=== PATIENT | female | born 1950 | race Caucasian/White ===

== ENCOUNTER → 2019-12-29 14:14 | Outpatient (BNVA) | payer MEDICARE, OTHER, SELFPAY | PROVIDERS: Family Provider Family Medicine; PCP Family Medicine; Visit Provider Family Medicine | DX: E11.8 Type 2 diabetes mellitus with unspecified complications (principal) | CPT/HCPCS: 80053; 80061; 83036; 85025 ==

== ENCOUNTER 2020-03-06 16:06 | Inpatient (IN) | payer MEDICARE, OTHER, SELFPAY ==
[2020-03-06 16:29] VITALS: BP 196/98; PULSE 70; RESP 16; TEMP 36.4; O2SAT 97; BMI 37.1
--- NOTE | 2020-03-06 16:35 | XR_ITS ---
WS: [id number] CHEST XRAY TECHNIQUE: Portable chest. CLINICAL INFORMATION: weakness COMPARISON: None. FINDINGS: Heart: Normal cardiac silhouette. Lungs: Lungs are clear. No consolidation or pleural effusion. Bones: Normal visualized bony structures. XR/XR chest 1V portable [id number] IMPRESSION: Normal chest
--- NOTE | 2020-03-06 16:38 | ED_ITS ---
Documented by User: Avi Horn DO 03/06/20 17:20 HPI - Nausea/Vomiting/Diarrhea General: Chief complaint: General Medical Stated complaint: SICK / HIGH BLOOD GLUCOSE Time Seen by Provider: 03/06/20 16:20 History of Present Illness: HPI Narrative: Patient presents to emergency room with 2 day history of severe nausea with multiple episodes of vomiting. Patient has had a subjective temperature. She denies diarrhea. She has no cough or urinary tract infection symptoms. MD elicited complaint: nausea and vomiting Onset (ago): day(s) Associated nausea: Yes Associated abdominal pain: Yes Location of pain: Diffuse Radiation: diffuse Pain consistency: constant Severity: moderate Quality: cramping Exacerbating factors: eating and movement Relieving factors: none Associated symtoms: Reports fatigue, malaise, myalgias and nausea Review of Systems General: Reports: 10 or more systems reviewed and unremarkable except in HPI and below Const: Reports: fatigue and malaise GI: Reports: nausea PFSH ED PFSH: Medical History CHF (congestive heart failure) CKD (chronic kidney disease) Depression Diabetes Hyperlipidemia Hypertension Sleep apnea Social History Smoking and tobacco status: never smoked Alcohol intake: never Marital status: Physical Exam Const: COMMON NORMALS: patient oriented x3 and alert GENERAL APPEARANCE: disheveled and ill appearing HENMT: COMMON NORMALS: normocephalic, atraumatic, external ears normal and Normal external nose present HEAD & SCALP: normocephalic and atraumatic FACE & SINUS: normal facial exam NOSE: Normal external nose present EXTERNAL EAR: Yes external ears normal MOUTH: Normal oral and palatal mucosa present Neck/C-Spine: COMMON NORMALS: full ROM, no lymphadenopathy, supple, no meningeal signs and no JVD GENERAL: Yes normal visual inspection Resp: COMMON NORMALS: normal respiratory effort, No retractions, No use of accessory muscles and clear to auscultation bilaterally AUSCULTATION: clear to auscultation bilaterally Cardio: COMMON NORMALS: no JVD, regular rate and regular rhythm RATE: regular rate RHYTHM: regular rhythm GI: COMMON NORMALS: Normal to inspection, nondistended, normoactive bowel sounds present, Soft to palpation, non-tender, No hepatosplenomegaly present and no masses INSPECTION: Yes normal to inspection AUSCULTATION: Yes normo active bowel sounds PALPATION: Yes Soft to palpation and Yes No hepatosplenomegaly present PERCUSSION: normal to percussion : COMMON NORMALS: Yes no CVA tenderness and Yes normal external appearance BLADDER/KIDNEY EXAM: Yes no CVA tenderness Back/Pelvis: COMMON NORMALS: no CVA tenderness, thoracic and lumbar spine normal to inspection, no thoracic nor lumbar tenderness, thoraco-lumbar ROM normal and straight leg raise negative bilaterally Extremity: COMMON NORMALS: normal to inspection, full ROM, capillary refill normal, no joint enlargement, no clubbing, cyanosis or edema, no calf tenderness and no pedal edema Neuro: COMMON NORMALS: patient oriented x3, moves all extremities, no focal motor deficits and no sensory deficits noted SENSORIUM/ORIENTATION: Yes alert MENINGEAL SIGNS: Yes no meningeal signs Psych: COMMON NORMALS: mental status grossly normal, Normal thought process present, cooperative, normal affect and speech normal SPEECH: Yes normal speech THOUGHT PROCESS: Normal thought process present Skin: COMMON NORMALS: no rashes or lesions noted, no wounds, turgor normal, no jaundice, no petechiae and no mottling GENERAL SKIN EXAM: no rashes or lesions noted and turgor normal Course Vital Signs: Vital signs: Vital Signs Temperature 98.9 F 03/07/20 01:04 Pulse Rate 104 H 03/07/20 01:04 Respiratory Rate 20 H 03/07/20 01:04 Blood Pressure 181/99 03/07/20 01:19 Pulse Oximetry 96 03/07/20 01:04 MDM - Nausea/Vomiting/Diarrhea Lab Data: Labs: Lab Results 03/06/20 03/06/20 03/06/20 Range/Units 16:57 16:57 16:57 WBC 6.3 (4.0-10.0) 10^3/ uL RBC 3.55 L (4.1-5.3) 10^6/u L Hgb 9.8 L (11.5-15.3) g/dL Hct 31.8 L (37.0-47.0) % MCV 89.6 (81-99) fL MCH 27.6 L (28.0-34.0) pg MCHC 30.8 (30.0-36.0) g/dL RDW 14.6 (12.1-15.1) % Plt Count 188 (130-400) 10^3/c mm MPV 11.0 H (7.4-10.4) fL Neut % (Auto) 76.3 % Lymph % (Auto) 14.0 % Chase % (Auto) 6.8 % Eos % (Auto) 0.0 % Baso % (Auto) 0.2 % Neut # (Auto) 4.79 (1.8-7.7) 10^3/u L Lymph # (Auto) 0.9 (0.8-4.8) 10^3/u L Chase # (Auto) 0.4 (0.2-0.9) 10^3/u L Eos # (Auto) 0.0 (0.0-0.8) 10^3/u L Baso # (Auto) 0.0 (0.0-0.1) 10^3/u L Nucleated RBC % (a uto) 0.3 % Nucleated RBCs # 0.0 /100WBC Specimen Type Sample Site ABG pH (7.35-7.45) ABG pCO2 (35-45) mmHg ABG pO2 (80.0-100.0) mmH g ABG HCO3 (22-26) mmol/L ABG Base Excess (-2.0-2.0) mmol/ L Deni Test Hematocrit (37-47) % O2 Delivery Device FiO2 % Dry Cans Back Tender ID Sodium 139 (136-145) mmol/L Potassium 3.4 L (3.5-5.1) mmol/L Chloride 106 (98-107) mmol/L Carbon Dioxide 20 L (22-29) mmol/L Anion Gap 16.4 (5-19) BUN 48 H (8-23) mg/dL Creatinine 3.4 H (0.5-0.9) mg/dL Glucose 385 H (65-115) mg/dL Calculated Osmolal ity 302 H (285-295) mOsm/k g Lactate 1.5 (0.5-2.2) mmol/L Calcium 8.6 (8.5-10.5) mg/dL Total Bilirubin 0.4 (0.15-1.2) mg/dL AST 16 (0-32) U/L ALT 13 (0-33) U/L Alkaline Phosphata se 41 (35-105) IU/L Troponin T Baselin e (0-10) ng/L NT-Pro-B Natriuret Pep 6394 H (0-125) pg/mL Total Protein 5.5 L (6.6-8.7) g/dL Albumin 2.6 L (3.5-5.2) g/dL Globulin 2.9 (1.3-4.6) g/dL Lipase 49 (13-60) U/L TSH 2.83 (0.27-4.20) uIU/ mL Urine Color (Yellow) Urine Appearance (CLEAR) Urine pH (5-7) Ur Specific Gravit y (1.005-1.030) Urine Protein (Negative) Urine Glucose (UA) (Normal) Urine Ketones (Negative) Urine Blood (Negative) Urine Nitrate (Negative) Urine Bilirubin (NEGATIVE) Urine Urobilinogen (Negative) mg/dL Ur Leukocyte Oralia ase (Negative) Urine RBC (0-2) /hpf Urine WBC (0-5) /hpf Ur Squamous Epith Cells (0-5) Amorphous Sediment Urine Bacteria (NONE) Serum Ketones (Negative) 03/06/20 03/06/20 03/06/20 Range/Units 16:57 17:17 18:28 WBC (4.0-10.0) 10^3/ uL RBC (4.1-5.3) 10^6/u L Hgb (11.5-15.3) g/dL Hct (37.0-47.0) % MCV (81-99) fL MCH (28.0-34.0) pg MCHC (30.0-36.0) g/dL RDW (12.1-15.1) % Plt Count (130-400) 10^3/c mm MPV (7.4-10.4) fL Neut % (Auto) % Lymph % (Auto) % Chase % (Auto) % Eos % (Auto) % Baso % (Auto) % Neut # (Auto) (1.8-7.7) 10^3/u L Lymph # (Auto) (0.8-4.8) 10^3/u L Chase # (Auto) (0.2-0.9) 10^3/u L Eos # (Auto) (0.0-0.8) 10^3/u L Baso # (Auto) (0.0-0.1) 10^3/u L Nucleated RBC % (a uto) % Nucleated RBCs # /100WBC Specimen Type Arterial Sample Site Radial, right ABG pH 7.52 H (7.35-7.45) ABG pCO2 26.4 L (35-45) mmHg ABG pO2 102.0 H (80.0-100.0) mmH g ABG HCO3 21.6 L (22-26) mmol/L ABG Base Excess -0.5 (-2.0-2.0) mmol/ L Deni Test Pos Hematocrit 31.2 L (37-47) % O2 Delivery Device Room air FiO2 21.0 % Dry Cans Back Tender ID amh Sodium (136-145) mmol/L Potassium (3.5-5.1) mmol/L Chloride (98-107) mmol/L Carbon Dioxide (22-29) mmol/L Anion Gap (5-19) BUN (8-23) mg/dL Creatinine (0.5-0.9) mg/dL Glucose (65-115) mg/dL Calculated Osmolal ity (285-295) mOsm/k g Lactate (0.5-2.2) mmol/L Calcium (8.5-10.5) mg/dL Total Bilirubin (0.15-1.2) mg/dL AST (0-32) U/L ALT (0-33) U/L Alkaline Phosphata se (35-105) IU/L Troponin T Baselin e (0-10) ng/L NT-Pro-B Natriuret Pep (0-125) pg/mL Total Protein (6.6-8.7) g/dL Albumin (3.5-5.2) g/dL Globulin (1.3-4.6) g/dL Lipase (13-60) U/L TSH (0.27-4.20) uIU/ mL Urine Color Yellow (Yellow) Urine Appearance Hazy A (CLEAR) Urine pH 6.5 (5-7) Ur Specific Gravit y 1.005 (1.005-1.030) Urine Protein 3+ H (Negative) Urine Glucose (UA) 4+ H (Normal) Urine Ketones 1+ H (Negative) Urine Blood 3+ H (Negative) Urine Nitrate Negative (Negative) Urine Bilirubin Neg (NEGATIVE) Urine Urobilinogen Norm (Negative) mg/dL Ur Leukocyte Oralia ase Negative (Negative) Urine RBC 0-4 H (0-2) /hpf Urine WBC 0-4 H (0-5) /hpf Ur Squamous Epith Cells Rare (0-5) Amorphous Sediment 2+ Urine Bacteria 2+ H (NONE) Serum Ketones Negative (Negative) 03/06/20 Range/Units 22:31 WBC (4.0-10.0) 10^3/ uL RBC (4.1-5.3) 10^6/u L Hgb (11.5-15.3) g/dL Hct (37.0-47.0) % MCV (81-99) fL MCH (28.0-34.0) pg MCHC (30.0-36.0) g/dL RDW (12.1-15.1) % Plt Count (130-400) 10^3/c mm MPV (7.4-10.4) fL Neut % (Auto) % Lymph % (Auto) % Chase % (Auto) % Eos % (Auto) % Baso % (Auto) % Neut # (Auto) (1.8-7.7) 10^3/u L Lymph # (Auto) (0.8-4.8) 10^3/u L Chase # (Auto) (0.2-0.9) 10^3/u L Eos # (Auto) (0.0-0.8) 10^3/u L Baso # (Auto) (0.0-0.1) 10^3/u L Nucleated RBC % (a uto) % Nucleated RBCs # /100WBC Specimen Type Sample Site ABG pH (7.35-7.45) ABG pCO2 (35-45) mmHg ABG pO2 (80.0-100.0) mmH g ABG HCO3 (22-26) mmol/L ABG Base Excess (-2.0-2.0) mmol/ L Deni Test Hematocrit (37-47) % O2 Delivery Device FiO2 % Dry Cans Back Tender ID Sodium (136-145) mmol/L Potassium (3.5-5.1) mmol/L Chloride (98-107) mmol/L Carbon Dioxide (22-29) mmol/L Anion Gap (5-19) BUN (8-23) mg/dL Creatinine (0.5-0.9) mg/dL Glucose (65-115) mg/dL Calculated Osmolal ity (285-295) mOsm/k g Lactate (0.5-2.2) mmol/L Calcium (8.5-10.5) mg/dL Total Bilirubin (0.15-1.2) mg/dL AST (0-32) U/L ALT (0-33) U/L Alkaline Phosphata se (35-105) IU/L Troponin T Baselin e 104 H* (0-10) ng/L NT-Pro-B Natriuret Pep (0-125) pg/mL Total Protein (6.6-8.7) g/dL Albumin (3.5-5.2) g/dL Globulin (1.3-4.6) g/dL Lipase (13-60) U/L TSH (0.27-4.20) uIU/ mL Urine Color (Yellow) Urine Appearance (CLEAR) Urine pH (5-7) Ur Specific Gravit y (1.005-1.030) Urine Protein (Negative) Urine Glucose (UA) (Normal) Urine Ketones (Negative) Urine Blood (Negative) Urine Nitrate (Negative) Urine Bilirubin (NEGATIVE) Urine Urobilinogen (Negative) mg/dL Ur Leukocyte Oralia ase (Negative) Urine RBC (0-2) /hpf Urine WBC (0-5) /hpf Ur Squamous Epith Cells (0-5) Amorphous Sediment Urine Bacteria (NONE) Serum Ketones (Negative) Discharge Plan Discharge Patient Disposition: Placed in Observation Admit Provider: Nory Pfeiffer Clinical Impression: Hypertensive urgency, Acute hyperglycemia Condition: Stable Discharge Date/Time: 03/07/20 00:58 Coding Level of Care Code ED Client Care Representative for Chg Fwd Exam Comprehensive Documented by User: Davey Munoz DO 03/07/20 02:17 HPI - Nausea/Vomiting/Diarrhea General: Chief complaint: General Medical Stated complaint: SICK / HIGH BLOOD GLUCOSE Time Seen by Provider: 03/06/20 16:20 [facility] ED PFSH: Medical History CHF (congestive heart failure) CKD (chronic kidney disease) Depression Diabetes Hyperlipidemia Hypertension Sleep apnea Social History Smoking and tobacco status: never smoked Alcohol intake: never Marital status: Course Vital Signs: Vital signs: Vital Signs Temperature 98.9 F 03/07/20 01:04 Pulse Rate 104 H 03/07/20 01:04 Respiratory Rate 20 H 03/07/20 01:04 Blood Pressure 181/99 03/07/20 01:19 Pulse Oximetry 96 03/07/20 01:04 MDM - Nausea/Vomiting/Diarrhea MDM Narrative: Medical decision making narrative: 69-year-old female checked out to me at shift change by Dr. De Oliveira. This lady had vomited a couple of days ago, thought it was her medicine making her sick, and stopped all of her medication. She presents significantly hyperglycemic, mildly acidotic metabolically, and without ketones in her serum. Her blood gas reveals respiratory alkalosis actually. Her hemoglobin is 9.8. Her BUN is 48, creatinine 3.4 which is a increase from her last one in December. She has been hydrated she is extremely hypertensive with blood pressures in the 215 range systolic. This is been controlled in the ER with labetalol and a dose of amlodipine which she usually takes at home. She will be observed for control of her blood sugar, blood pressure, and symptomatic treatment. Lab Data: Labs: Lab Results 03/06/20 03/06/20 03/06/20 Range/Units 16:57 16:57 16:57 WBC 6.3 (4.0-10.0) 10^3/ uL RBC 3.55 L (4.1-5.3) 10^6/u L Hgb 9.8 L (11.5-15.3) g/dL Hct 31.8 L (37.0-47.0) % MCV 89.6 (81-99) fL MCH 27.6 L (28.0-34.0) pg MCHC 30.8 (30.0-36.0) g/dL RDW 14.6 (12.1-15.1) % Plt Count 188 (130-400) 10^3/c mm MPV 11.0 H (7.4-10.4) fL Neut % (Auto) 76.3 % Lymph % (Auto) 14.0 % Chase % (Auto) 6.8 % Eos % (Auto) 0.0 % Baso % (Auto) 0.2 % Neut # (Auto) 4.79 (1.8-7.7) 10^3/u L Lymph # (Auto) 0.9 (0.8-4.8) 10^3/u L Chase # (Auto) 0.4 (0.2-0.9) 10^3/u L Eos # (Auto) 0.0 (0.0-0.8) 10^3/u L Baso # (Auto) 0.0 (0.0-0.1) 10^3/u L Nucleated RBC % (a uto) 0.3 % Nucleated RBCs # 0.0 /100WBC Specimen Type Sample Site ABG pH (7.35-7.45) ABG pCO2 (35-45) mmHg ABG pO2 (80.0-100.0) mmH g ABG HCO3 (22-26) mmol/L ABG Base Excess (-2.0-2.0) mmol/ L Deni Test Hematocrit (37-47) % O2 Delivery Device FiO2 % Dry Cans Back Tender ID Sodium 139 (136-145) mmol/L Potassium 3.4 L (3.5-5.1) mmol/L Chloride 106 (98-107) mmol/L Carbon Dioxide 20 L (22-29) mmol/L Anion Gap 16.4 (5-19) BUN 48 H (8-23) mg/dL Creatinine 3.4 H (0.5-0.9) mg/dL Glucose 385 H (65-115) mg/dL Calculated Osmolal ity 302 H (285-295) mOsm/k g Lactate 1.5 (0.5-2.2) mmol/L Calcium 8.6 (8.5-10.5) mg/dL Total Bilirubin 0.4 (0.15-1.2) mg/dL AST 16 (0-32) U/L ALT 13 (0-33) U/L Alkaline Phosphata se 41 (35-105) IU/L Troponin T Baselin e (0-10) ng/L NT-Pro-B Natriuret Pep 6394 H (0-125) pg/mL Total Protein 5.5 L (6.6-8.7) g/dL Albumin 2.6 L (3.5-5.2) g/dL Globulin 2.9 (1.3-4.6) g/dL Lipase 49 (13-60) U/L TSH 2.83 (0.27-4.20) uIU/ mL Urine Color (Yellow) Urine Appearance (CLEAR) Urine pH (5-7) Ur Specific Gravit y (1.005-1.030) Urine Protein (Negative) Urine Glucose (UA) (Normal) Urine Ketones (Negative) Urine Blood (Negative) Urine Nitrate (Negative) Urine Bilirubin (NEGATIVE) Urine Urobilinogen (Negative) mg/dL Ur Leukocyte Oralia ase (Negative) Urine RBC (0-2) /hpf Urine WBC (0-5) /hpf Ur Squamous Epith Cells (0-5) Amorphous Sediment Urine Bacteria (NONE) Serum Ketones (Negative) 03/06/20 03/06/20 03/06/20 Range/Units 16:57 17:17 18:28 WBC (4.0-10.0) 10^3/ uL RBC (4.1-5.3) 10^6/u L Hgb (11.5-15.3) g/dL Hct (37.0-47.0) % MCV (81-99) fL MCH (28.0-34.0) pg MCHC (30.0-36.0) g/dL RDW (12.1-15.1) % Plt Count (130-400) 10^3/c mm MPV (7.4-10.4) fL Neut % (Auto) % Lymph % (Auto) % Chase % (Auto) % Eos % (Auto) % Baso % (Auto) % Neut # (Auto) (1.8-7.7) 10^3/u L Lymph # (Auto) (0.8-4.8) 10^3/u L Chase # (Auto) (0.2-0.9) 10^3/u L Eos # (Auto) (0.0-0.8) 10^3/u L Baso # (Auto) (0.0-0.1) 10^3/u L Nucleated RBC % (a uto) % Nucleated RBCs # /100WBC Specimen Type Arterial Sample Site Radial, right ABG pH 7.52 H (7.35-7.45) ABG pCO2 26.4 L (35-45) mmHg ABG pO2 102.0 H (80.0-100.0) mmH g ABG HCO3 21.6 L (22-26) mmol/L ABG Base Excess -0.5 (-2.0-2.0) mmol/ L Deni Test Pos Hematocrit 31.2 L (37-47) % O2 Delivery Device Room air FiO2 21.0 % Dry Cans Back Tender ID amh Sodium (136-145) mmol/L Potassium (3.5-5.1) mmol/L Chloride (98-107) mmol/L Carbon Dioxide (22-29) mmol/L Anion Gap (5-19) BUN (8-23) mg/dL Creatinine (0.5-0.9) mg/dL Glucose (65-115) mg/dL Calculated Osmolal ity (285-295) mOsm/k g Lactate (0.5-2.2) mmol/L Calcium (8.5-10.5) mg/dL Total Bilirubin (0.15-1.2) mg/dL AST (0-32) U/L ALT (0-33) U/L Alkaline Phosphata se (35-105) IU/L Troponin T Baselin e (0-10) ng/L NT-Pro-B Natriuret Pep (0-125) pg/mL Total Protein (6.6-8.7) g/dL Albumin (3.5-5.2) g/dL Globulin (1.3-4.6) g/dL Lipase (13-60) U/L TSH (0.27-4.20) uIU/ mL Urine Color Yellow (Yellow) Urine Appearance Hazy A (CLEAR) Urine pH 6.5 (5-7) Ur Specific Gravit y 1.005 (1.005-1.030) Urine Protein 3+ H (Negative) Urine Glucose (UA) 4+ H (Normal) Urine Ketones 1+ H (Negative) Urine Blood 3+ H (Negative) Urine Nitrate Negative (Negative) Urine Bilirubin Neg (NEGATIVE) Urine Urobilinogen Norm (Negative) mg/dL Ur Leukocyte Oralia ase Negative (Negative) Urine RBC 0-4 H (0-2) /hpf Urine WBC 0-4 H (0-5) /hpf Ur Squamous Epith Cells Rare (0-5) Amorphous Sediment 2+ Urine Bacteria 2+ H (NONE) Serum Ketones Negative (Negative) 03/06/20 Range/Units 22:31 WBC (4.0-10.0) 10^3/ uL RBC (4.1-5.3) 10^6/u L Hgb (11.5-15.3) g/dL Hct (37.0-47.0) % MCV (81-99) fL MCH (28.0-34.0) pg MCHC (30.0-36.0) g/dL RDW (12.1-15.1) % Plt Count (130-400) 10^3/c mm MPV (7.4-10.4) fL Neut % (Auto) % Lymph % (Auto) % Chase % (Auto) % Eos % (Auto) % Baso % (Auto) % Neut # (Auto) (1.8-7.7) 10^3/u L Lymph # (Auto) (0.8-4.8) 10^3/u L Chase # (Auto) (0.2-0.9) 10^3/u L Eos # (Auto) (0.0-0.8) 10^3/u L Baso # (Auto) (0.0-0.1) 10^3/u L Nucleated RBC % (a uto) % Nucleated RBCs # /100WBC Specimen Type Sample Site ABG pH (7.35-7.45) ABG pCO2 (35-45) mmHg ABG pO2 (80.0-100.0) mmH g ABG HCO3 (22-26) mmol/L ABG Base Excess (-2.0-2.0) mmol/ L Deni Test Hematocrit (37-47) % O2 Delivery Device FiO2 % Dry Cans Back Tender ID Sodium (136-145) mmol/L Potassium (3.5-5.1) mmol/L Chloride (98-107) mmol/L Carbon Dioxide (22-29) mmol/L Anion Gap (5-19) BUN (8-23) mg/dL Creatinine (0.5-0.9) mg/dL Glucose (65-115) mg/dL Calculated Osmolal ity (285-295) mOsm/k g Lactate (0.5-2.2) mmol/L Calcium (8.5-10.5) mg/dL Total Bilirubin (0.15-1.2) mg/dL AST (0-32) U/L ALT (0-33) U/L Alkaline Phosphata se (35-105) IU/L Troponin T Baselin e 104 H* (0-10) ng/L NT-Pro-B Natriuret Pep (0-125) pg/mL Total Protein (6.6-8.7) g/dL Albumin (3.5-5.2) g/dL Globulin (1.3-4.6) g/dL Lipase (13-60) U/L TSH (0.27-4.20) uIU/ mL Urine Color (Yellow) Urine Appearance (CLEAR) Urine pH (5-7) Ur Specific Gravit y (1.005-1.030) Urine Protein (Negative) Urine Glucose (UA) (Normal) Urine Ketones (Negative) Urine Blood (Negative) Urine Nitrate (Negative) Urine Bilirubin (NEGATIVE) Urine Urobilinogen (Negative) mg/dL Ur Leukocyte Oralia ase (Negative) Urine RBC (0-2) /hpf Urine WBC (0-5) /hpf Ur Squamous Epith Cells (0-5) Amorphous Sediment Urine Bacteria (NONE) Serum Ketones (Negative) Discharge Plan Discharge Patient Disposition: Placed in Observation Admit Provider: Nory Pfeiffer Clinical Impression: Hypertensive urgency, Acute hyperglycemia Condition: Stable Discharge Date/Time: 03/07/20 00:58 Coding Level of Care Code ED Client Care Representative for Chg Fwd Exam Comprehensive
[2020-03-06] MEDS: sodium chloride 0.9% 1,000 ML 999 ML IV (17:00)
[2020-03-06] MEDS: ondansetron 2 mg/ML SDV 2 mL 4 MG IVP ×2 (17:00→20:13)
[2020-03-06 17:05] LABS: Basophils % 0.2 %; Hematocrit 31.8 % (37.0-47.0); Hemoglobin 9.8 g/dL (11.5-15.3); Lymphocytes # 0.9 10^3/uL (0.8-4.8); Mean Corpuscular HGB Conc 30.8 g/dL (30.0-36.0); Mean Corpuscular Hemoglobin 27.6 pg (28.0-34.0); Mean Corpuscular Volume 89.6 fL (81-99); Monocytes # 0.4 10^3/uL (0.2-0.9); Monocytes % 6.8 %; Neutrophils # 4.79 10^3/uL (1.8-7.7); Neutrophils % 76.3 %; Nucleated Red Blood Cells % 0.3 %; Platelet Count 188 10^3/cmm (130-400); Red Blood Count 3.55 10^6/uL (4.1-5.3); Red Cell Distribution Width 14.6 % (12.1-15.1); White Blood Count 6.3 10^3/uL (4.0-10.0)
[2020-03-06 17:21] LABS: Ketone (Acetest) Serum Negative (Negative)
[2020-03-06 17:29] LABS: ABG PCO2 26.4 mmHg (35-45); ABG PH Result 7.52 (7.35-7.45); Arterial Blood Gas Hematocrit 31.2 % (37-47); Base Excess ABG -0.5 mmol/L (-2.0-2.0); Blood Gas Allen Test Pos; Blood Gas Operator Identificat amh; Blood Gas Sample Site Radial, right; Blood Gas Sample Type Arterial; HCO3 ABG 21.6 mmol/L (22-26); Oxygen Device ROOM AIR
[2020-03-06 17:36] LABS: Lactate (Lactic Acid level) 1.5 mmol/L (0.5-2.2)
[2020-03-06 17:42] LABS: Alanine Aminotransferase 13 U/L (0-33); Albumin Level 2.6 g/dL (3.5-5.2); Alkaline Phosphatase 41 IU/L (35-105); Anion Gap 16.4 (5-19); Aspartate Amino Transferase 16 U/L (0-32); Blood Urea Nitrogen 48 mg/dL (8-23); Calcium 8.6 mg/dL (8.5-10.5); Carbon Dioxide 20 mmol/L (22-29); Chloride 106 mmol/L (98-107); Globulin 2.9 g/dL (1.3-4.6); Glucose 385 mg/dL (65-115); Lipase 49 U/L (13-60); NT Pro B Type Natriuretic Pept 6394 pg/mL (0-125); Osmolality Calculated 302 mOsm/kg (285-295); Potassium 3.4 mmol/L (3.5-5.1); Sodium 139 mmol/L (136-145); Thyroid Stimulating Hormone 2.83 uIU/mL (0.27-4.20); Total Bilirubin 0.4 mg/dL (0.15-1.2); Total Protein 5.5 g/dL (6.6-8.7)
--- NOTE | 2020-03-06 18:18 | CTR_ITS ---
PROCEDURE INFORMATION: Exam: CT Head Without Contrast Exam date and time: 03/06/2020 7:08 PM Age: 69 years old Clinical indication: Other: Confused; Additional info: AMS TECHNIQUE: Imaging protocol: Computed tomography of the head without contrast. Radiation optimization: All CT scans at this facility use at least one of these dose optimization techniques: automated exposure control; mA and/or kV adjustment per patient size (includes targeted exams where dose is matched to clinical indication); or iterative reconstruction. COMPARISON: No relevant prior studies available. RADIATION DOSE METRICS: Total DLP (mGy-cm): 778.14 FINDINGS: Brain: Unremarkable. No visible hemorrhage. Unremarkable white matter for age. No mass effect. Ventricles: Normal. No ventriculomegaly. Bones/joints: Unremarkable. No acute fracture. Sinuses: Visualized sinuses are unremarkable. No fluid levels. Mastoid air cells: Visualized mastoid air cells are well aerated. Soft tissues: Unremarkable. CT/CT head wo con* [id number] IMPRESSION: No acute intracranial abnormality. Radiation Dose CTDIVOL = (mGy): DLP = 778.14 (mGy-cm)
[2020-03-06 18:49] LABS: Urine Appearance Hazy (CLEAR); Urine Color Yellow (Yellow); pH Urine 6.5 (5-7)
[2020-03-06 18:50] LABS: Add Urine Microscopic? YES; Bilirubin Urine Neg (NEGATIVE); Blood Urine 3+ (Negative); Glucose Urine UA 4+ (Normal); Ketones Urine 1+ (Negative); Leukocyte Esterase Urine Negative (Negative); Nitrate Urine Negative (Negative); Protein Urine 3+ (Negative); Specific Gravity, Urine 1.005 (1.005-1.030); Urobilinogen Urine Norm (Negative)
[2020-03-06 18:56] LABS: RBC Urine 0-4 /hpf (0-2); Squamous Epithelial Cell Urine RARE (0-5); WBC Urine 0-4 /hpf (0-5)
[2020-03-06 18:58] LABS: Add Urine Culture? Yes; Amorphous Sediment Urine 2+; Bacteria Urine 2+
[2020-03-06] MEDS: amlodipine 10 mg Tablet PO (20:13)
[2020-03-06] MEDS: labetalol 5 mg/mL SDV 20mL 20 MG IVP ×2 (20:13→21:43)
--- NOTE | 2020-03-06 22:03 | ECG_ITS ---
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 Measurements Intervals [place] Rate: 91 P: 55 OR: 198 QRS: 11 QRSD: 86 T: 33 QT: 377 QTc: 465 Interpretive Statements SINUS RHYTHM INFERIOR MYOCARDIAL INFARCTION , PROBABLY OLD [40+ ms Q WAVE AND/OR ST/T ABNORMALITY IN II/aVF] No previous ECG available for comparison Electronically Signed On 03-07-2020 16:39:16 CDT by Mathieu Pereira M.D. [id number]
--- NOTE | 2020-03-06 22:55 | PM.HP ---
Providers/Chief Complaint Admitting Physician: Nory Pfeiffer Primary Care Provider: Mana Barragan MD Chief Complaint: SICK / HIGH BLOOD GLUCOSE History of Present Illness Hailey Vasquez is a 69 year old female who presented to the emergency room complaining of being sick . She started having nausea and vomiting on Saturday. Reports 3-4 episodes of vomiting a day. Generally what ever she has tried to take N. She is lost her appetite and quit trying to take anything in but has continued to have episodes of vomiting, bilious or clear. Has had some dry heaves. With the vomiting episode she reports abdominal pain rated at its worst up to a 10 out of 10. Pain is relieved with some with vomiting. She does report some constipation intermittently. Last bowel movement was a couple of days ago. She is passing gas. Denies any diarrhea. Has not had any abdominal distention. Her had wanted her to come in for evaluation but she refused initially. He found her sitting on the toilet to get up because she was so weak and she finally agreed to come in. Only recent change in medications reported was blood pressure medicine was a decrease in the amount of Norvasc that she is taking. After her vomiting started she quit taking all of her medicines. She denies having had similar symptoms in the past. Denies any painful urination or urinary frequency. Barreto catheter was placed in the emergency room and she reports it is uncomfortable. She has not had any fever. Denies any known sick contacts in particular denies any known contacts with COVID. Has not had sore throat or physical difficulty swallowing. Has not had any headaches. Reports the weakness but denies aches and pains. Work-up in the emergency room showed hyperglycemia, hypertension, acute renal failure on chronic kidney disease, normal lactic acid. Lipase was normal. Cardiac enzymes were not done nor was an EKG though these have been ordered. Patient denies any episodes of chest pain, shortness of breath, dyspnea on exertion or lower extremity edema. She has a history of hypertension, hyperlipidemia and diabetes but denies any known history of coronary artery disease. She has been told that she has CHF. Last echocardiogram was done in May or June of last year and showed normal systolic function with an estimated ejection fraction at 65%. She received several doses of Zofran, IV fluids and some labetalol in the emergency room. She is being admitted for further evaluation and treatment. Review of Systems Const: Reports: change in appetite; Denies: fever(s) or chills Eyes: Denies: change in vision ENMT: Reports: dry mouth; Denies: throat pain or nasal congestion Card: Denies: chest pain, palpitations, edema, dyspnea on exertion or orthopnea Resp: Denies: dyspnea, productive cough, non-productive cough or pain on inspiration GI: Reports: abdominal pain, nausea, vomiting, early satiety, constipation, bloating and belching; Denies: hematemesis, diarrhea, hematochezia or melena : Denies: difficulty voiding or urinary frequency Musc: Reports: muscle weakness; Denies: back pain or extremity pain Skin/Breast: Denies: rash or pruritus Neuro: Reports: weakness in extremities; Denies: headache(s), numbness in extremities, difficulty walking, dizziness, vertigo or involuntary movements Psych: Denies: anxiety or depression King/Lymph: Denies: easy bruising or easy bleeding Medications/Allergies Home Medications Medication Instructions Recorded Confirmed Last Taken Type venlafaxine 150 mg 150 mg PO QDAY #90 cap 09/24/19 03/06/20 03/04/20 Rx capsule,extended release 24 hr amlodipine 10 mg tablet 5 mg PO DAILY 12/31/19 03/06/20 03/04/20 History furosemide 40 mg tablet 40 mg PO DAILY #90 tab 12/31/19 03/06/20 03/04/20 Rx hydrochlorothiazide 25 mg tablet 25 mg PO DAILY 12/31/19 03/06/20 03/04/20 History lisinopril 40 mg tablet 40 mg PO BID tab 12/31/19 03/06/20 03/04/20 History metaxalone 800 mg tablet 800 mg PO TID #30 tab 12/31/19 03/06/20 03/04/20 Rx rosuvastatin 40 mg tablet 40 mg PO BEDTIME 12/31/19 03/06/20 03/04/20 History canagliflozin [Invokana] 300 mg PO DAILY 03/06/20 03/06/20 03/04/20 History cholecalciferol (vitamin D3) 25 mcg PO DAILY 03/06/20 03/06/20 03/04/20 History [Vitamin D3] clonidine HCl 0.1 mg PO BID 03/06/20 03/06/20 03/04/20 History insulin glargine U-300 conc 80 unit SUBCUT DAILY 03/06/20 03/06/20 03/04/20 History [Cecilia BernabeoStar U-300 Insulin] insulin regular human [Novolin R 60 sliding scale dose SUBCUT DAILY 03/06/20 03/06/20 03/04/20 History Regular U-100 Insuln] iron 325 mg PO DAILY 03/06/20 03/06/20 03/04/20 History metoprolol succinate 100 mg PO DAILY 03/06/20 03/06/20 03/04/20 History potassium chloride 20 meq PO BID 03/06/20 03/06/20 03/04/20 History Allergies Allergy/AdvReac Type Severity Reaction Status Date / Time nifedipine [From Procardia] Allergy Unknown Verified 03/06/20 17:22 propoxyphene Allergy Unknown Verified 03/06/20 17:22 [From Darvocet-N] codeine AdvReac Unknown Verified 03/07/20 01:39 metformin AdvReac ADR-Nausea Verified 03/07/20 01:39 PFSH Acute PFSH: Medical History (Updated 03/07/20 @ 06:51 by Nory Pfeiffer MD) CHF (congestive heart failure) CKD (chronic kidney disease) Depression Diabetes Hyperlipidemia Hypertension Kidney malignancy froze off 5 yrs ago Macular degeneration getting shots in eye Sleep apnea no cpap due to intolerance Surgical History (Updated 03/07/20 @ 05:01 by Nory Pfeiffer MD) History of back surgery History of eye surgery History of hysterectomy Family History (Updated 03/07/20 @ 05:04 by Nory Pfeiffer MD) Mother Diabetes Chronic kidney disease (CKD) Other Cancer Denies family history of CAD (coronary artery disease) Social History Smoking and tobacco status: never smoked Alcohol intake: never Marital status: Vitals/I&O/Wt Last Vital Signs Temp 97.6 F 03/06/20 16:29 Pulse 70 03/06/20 16:29 Resp 16 03/06/20 16:29 BP 196/98 03/06/20 16:29 Pulse Ox 97 03/06/20 16:29 03/06/20 03/06/20 03/06/20 06:59 14:59 22:59 Intake Total 1000 / 1000 Balance 1000 / 1000 Weight last 48 hrs Weight 104.326 kg Physical Exam Const: OTHER: Alert, oriented x3, moderately ill-appearing due to persistent nausea, frequently belching HENMT: OTHER: Normocephalic atraumatic, dry mucous membranes Eye: OTHER: Pupils equally round and reactive to light, extraocular movements are intact, mild bilateral proptosis Neck/C-Spine: OTHER: Supple, large Resp: OTHER: Clear to auscultation bilaterally, no rales, rhonchi or wheezes noted. Some tachypnea while nauseated Cardio: OTHER: Regular rhythm, no murmurs, pulses intact x4 GI: OTHER: Abdomen soft, tender in the upper quadrants, rotund, positive bowel sounds, not tympanic, no rebound or guarding Extremity: NARRATIVE EXTREMITY EXAM: 1+ pitting edema Neuro: OTHER: Face symmetric, speech clear, moves all extremities Psych: OTHER: Anxious due to her persistent symptoms but cooperative, normal affect Skin: OTHER: The skin is dry, no rashes noted Urinary Catheter Management^: Barreto: Cath Placed During This Visit: yes Reason for Continuing Indwelling Catheter: Acute Urinary Retention or Obstruction Urinary Catheter Date of Insertion: 03/06/20 Data : 03/07/20 06:57 03/07/20 06:57 Other Labs: Laboratory Tests 03/06/20 03/06/20 03/06/20 16:57 16:57 18:28 Lactate 1.5 Lipase 49 TSH 2.83 Ur Specific Petros 1.005 Urine Protein 3+ H Urine Glucose (UA) 4+ H Urine Ketones 1+ H Urine Blood 3+ H Urine Nitrate Negative Ur Leukocyte Esterase Negative Urine RBC 0-4 H Urine WBC 0-4 H Laboratory Tests 03/06/20 16:57 Total Bilirubin 0.4 AST 16 ALT 13 Alkaline Phosphatase 41 Micro: Microbiology 03/06/20 16:50 Blood Culture - Preliminary Blood SPECIMEN COLLECTED 03/06/20 16:57 Blood Culture - Preliminary Blood SPECIMEN COLLECTED CT Head: Radiologist's impression: IMPRESSION: No acute intracranial abnormality. Other data: Echo 07/14 CONCLUSIONS 1. Normal left ventricular cavity size. Normal left ventricular systolic function. Left ventricular ejection fraction is estimated at 65 %. Although no diagnostic regional wall motion abnormality could be identified, this possibility cannot be completely excluded. Grade 1 diastolic dysfunction. 2. Normal right ventricular size and systolic function. 3. Right atrial pressure estimated at 3 mmHg. 4. Pulmonary artery pressure estimated at 23 mmHg. 5. No significant valvular abnormality. 6. No prior similar studies to compare. A&P Assessment and plan (1) Intractable nausea and vomiting: I am unsure if this is from uremia related to acute renal failure, hyperglycemia, hypertensive urgency or gastroenteritis. Vascular etiology is within the differential with her comorbid conditions but lactic acid was normal. Still has her gallbladder but liver functions are normal. With passage of stool, blockage seems less likely but something else to consider. 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 [place] Status: Chronic Qualifiers: Chronic kidney disease stage: stage 3 (moderate) Qualified Code(s): N18.3 - Chronic kidney disease, stage 3 (moderate) (8) Sleep apnea: Noncompliant with CPAP Status: Chronic Qualifiers: Sleep apnea type: obstructive Qualified Code(s): G47.33 - Obstructive sleep apnea (adult) (pediatric) Additional A&P Information Inpatient admission secondary to intractable symptoms Order serial cardiac enzymes and EKGs Check hemoglobin A1c and lipid panel TSH was checked in the emergency room and was normal Lipase was normal Insulin therapy, monitoring blood sugars closely IV Lasix, monitoring I's and O's closely Continue Barreto catheter now secondary to acute renal failure and need to watch volume status We will resume clonidine as needed and metoprolol scheduled which are also home medications Continue statin therapy which she takes at home Daily aspirin Continue home Effexor Anti-emetics as needed Monitor for indication to consider abdominal imaging, or other focus testing CT of the head in the emergency room was unremarkable for acute process Serial neuro exams Limited echocardiogram to evaluate ejection fraction Follow-up pending blood cultures Lovenox for DVT prophylaxis Supportive care otherwise Plans discussed with patient and she was given an opportunity to ask questions Full code Currently anticipate discharge home with her when medically stable Attestations Medical Necessity Statement*: Anticipated stay greater than 2 midnights in this lady with multiple complaints and multiple days of symptoms. Issues and plans are as indicated. Coding Level of Care Code Acute Sales And Service Consultant for Chg Fwd Diagnoses Intractable nausea and vomiting R11.2 Acute renal failure N17.9 Acute renal failure type: unspecified Hypertensive urgency I16.0 Diabetes E11.65 Diabetes mellitus complication status: with hyperglycemia Diabetes mellitus terminal make up operator insulin use: without care home use Diabetes mellitus type: type 2 CHF (congestive heart failure) I50.32 Heart failure chronicity: chronic Heart failure type: diastolic Hyperlipidemia E78.5 Hyperlipidemia type: unspecified CKD (chronic kidney disease) N18.3 Chronic kidney disease stage: stage 3 (moderate) Sleep apnea G47.33 Sleep apnea type: obstructive
[2020-03-06 23:09] LABS: Troponin(5th) Baseline 104 ng/L (0-10)
[2020-03-07] VITALS (12 sets, daily range): BP systolic 146–201; BP diastolic 83–99; PULSE 80–108; RESP 18–22; TEMP 36.3–37.2; O2SAT 87–99
[2020-03-07] MEDS: nitroglycerin 1 gm/inch oint Pkt 2 INCH TOPICAL (00:07)
[2020-03-07 00:49] LABS: Troponin 5 2HR Delta 2.9 ABS# (0-10)
[2020-03-07 01:03] LABS: Glucose Point of Care 265 mg/dL (70-110)
[2020-03-07 01:07] LABS: Troponin 5 2HR 106.9 ng/L (0-10)
[2020-03-07] MEDS: ondansetron 2 mg/ML SDV 2 mL 4 MG IVP ×4 (01:14→17:56)
[2020-03-07] MEDS: FUROsemide 10 mg/mL SDV 10mL 60 MG IVP (01:19)
[2020-03-07] MEDS: cloNIDine 0.1 mg Tablet PO (01:19)
[2020-03-07] MEDS: venlafaxine ER (24HR) 150 mg Capsule PO ×2 (01:20→08:53)
[2020-03-07] MEDS: enoxaparin 40 mg/0.4 mL Syringe SUBCUT (01:20)
[2020-03-07] MEDS: aspirin 81 mg Chew Tablet 324 MG PO (01:20)
[2020-03-07] MEDS: insulin glargine 100 units/1 mL 20 UNIT SUBCUT (01:21)
[2020-03-07 04:13] LABS: INR 1.04 (0.8-1.2)
[2020-03-07 04:14] LABS: Partial Thromboplastin Time 31.5 SECONDS (23.9-36.7)
[2020-03-07] MEDS: promethazine 25 mg Supp PR (04:17)
[2020-03-07] MEDS: acetaminophen 325 mg Tablet 650 MG PO (04:19)
[2020-03-07 04:31] LABS: Cholesterol 214 mg/dL (0-200); Estmated Average Glucose 217; HDL Cholesterol 69 mg/dL (60-100); Hemoglobin A1C 9.2 % (4.0-6.0); LDL Cholesterol Calculated 113 mg/dL (50-129); LDL HDL Ratio 1.64 RATIO (0.00-3.22); NT Pro B Type Natriuretic Pept 7570 pg/mL (0-125); Triglycerides 161 mg/dL (0-150)
[2020-03-07 04:46] LABS: Phosphorus 4.6 mg/dL (2.5-4.5)
--- NOTE | 2020-03-07 05:54 | ECG_ITS ---
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 Measurements Intervals [place] Rate: 109 P: 58 AR: 176 QRS: 6 QRSD: 91 T: 31 QT: 360 QTc: 487 Interpretive Statements SINUS TACHYCARDIA POSSIBLE INFERIOR MYOCARDIAL INFARCTION [30 ms Q WAVE IN II/aVF], PROBABLY OLD ABNORMAL RHYTHM ECG INTERPRETATION BASED ON A DEFAULT AGE OF 40 YEARS Compared to ECG 03/06/2020 22:26:44 Sinus rhythm no longer present Myocardial infarct finding still present Electronically Signed On 03-07-2020 16:39:23 CDT by Mathieu Pereira M.D. [id number] lisa
[2020-03-07 06:14] LABS: Troponin 5 6HR 121.2 ng/L (0-10); Troponin 5 6HR Delta 17.2 ng/L (0-12)
--- NOTE | 2020-03-07 06:32 | CT_ITS ---
WS: [id number] CT ABDOMEN PELVIS TECHNIQUE: Noncontrast CT of the abdomen and pelvis with coronal and sagittal reformatted images. CLINICAL INFORMATION: n/v, abd pain, persistent COMPARISON: 4 18,011 DLP: 1501.[address] scans at [facility] use at least one of these dose optimization techniques: automat ed exposure control; mA and/or kV adjustment per patient size (includes targeted exams where dose is matched to clinical indication); or iterative reconstruction. FINDINGS: Normal liver. Normal spleen. Calcified splenic granulomas. Stable lesion in the anterior aspect of th e spleen measuring 4.8 cm similar to 2011 and likely represents splenic hemangioma. Small esophageal hiatal hernia. Small bilateral pleural effusions. Bibasilar atelectasis. A few tiny noncalcified nod ules in the lung bases. This can be followed up with chest CT. Bilateral renal cysts. Calcified lobulated exophytic left renal lesion measuring 3.1 cm. This may be due to prior ablation but nonspecific. No hydronephrosis in either kidney. Adrenal glands are normal. Fatty atrophy of the pancreas. Prior hysterectomy. Sigmoid constipation. Small amount of free fluid in the pelvis. Barreto catheter. No inguinal lymphadenopathy. Fat-containing umbilical hernia. A few prominent Lymph nodes along the mesenteric root. CT/CT abdomen pelvis wo con [id number] IMPRESSION: 1. 4.8 cm splenic lesion unchanged since 2010 likely hemangioma. 2. Small esophageal hiatal hernia. 3. A few tiny noncalcified nodules in the lung bases. This can be followed up with chest CT. 4. Bilateral renal cysts. Calcified exophytic left renal lesion may be due to prior ablation. 5. A few prominent lymph nodes along the mesenteric root nonspecific but may b e reactive. 6. Trace free fluid in the pelvis. 7. No acute abdominal findings.
[2020-03-07] MEDS: HYDROcodone-acetaminophen 5-325 mg Tablet 1 TAB PO ×3 (06:41→21:12)
--- NOTE | 2020-03-07 06:49 | USCV_ITS ---
Hailey Vasquez Age: 69 Gender: F : 1950 Exam Date: 03/07/2020 13:16 Ordering Phys: Nory Pfeiffer MD Technologist: Chiquita Mora [place] [facility] [place]: ELEVATED TROPONIN BP: / HR: 77 Rhythm: Sinus Technical Quality: Very technically difficult study MEASUREMENTS (Male / Female) Normal Values 2D ECHO LV Diastolic Diameter PLAX 3.3 cm 4.2 - 5.9 / 3.9 - 5.3 cm LV Systolic Diameter PLAX 2.4 cm LV Chamber Size 3.0 cm IVS Diastolic Thickness 1.5 cm 0.6 - 1.0 / 0.6 - 0.9 cm IVS Systolic Thickness 1.7 cm LVPW Diastolic Thickness 1.4 cm 0.6 - 1.0 / 0.6 - 0.9 cm LVPW Systolic Thickness 1.5 cm RV Chamber Size 2.8 cm LVOT Diameter 2.1 cm LV Ejection Fraction 2D Teich 56.7 % LV Ejection Fraction MOD 2C 57.2 % LV Ejection Fraction 2C AL 57.3 % LA Diameter 4.1 cm LA Width 3.3 cm LA Height 4.4 cm RA Width 3.4 cm RA Height 4.4 cm Aorta at Sinotubular Diameter 2.7 cm M-MODE LV Diastolic Diameter MM 4.3 cm 4.2 - 5.9 / 3.9 - 5.3 cm LV Systolic Diameter MM 2.5 cm LV Ejection Fraction MM Teich 73.3 % IVS Diastolic Thickness MM 0.8 cm 0.6 - 1.0 / 0.6 - 0.9 cm IVS Systolic Thickness MM 1.4 cm LVPW Diastolic Thickness MM 1.1 cm 0.6 - 1.0 / 0.6 - 0.9 cm LVPW Systolic Thickness MM 1.9 cm RV Diastolic Diameter MM 1.0 cm Aortic Annulus Diameter 2.4 cm LA Ao Ratio MM 1.7 MV E Point Septal Separation 0.3 cm DOPPLER AV Peak Velocity 119.0 cm/s LVOT Peak Velocity 99.0 cm/s AV Area Cont Eq vti 2.7 cm squared AV Area Cont Eq pk 2.8 cm squared MV Area PHT 10.0 cm squared Mitral E to A Ratio 0.9 MV E' Velocity 7.0 cm/s Mitral E to MV E' Ratio 15.0 Mitral E to LV E' Lateral Ratio 17.9 Mitral E to LV E' Septal Ratio 12.9 TR Peak Velocity 194.1 cm/s TR Peak Gradient 15.1 mmHg TR Mean Velocity 162.0 cm/s TR Mean Gradient 11.2 mmHg TR Velocity Time Integral 58.7 cm TV Peak E Velocity 70.0 cm/s Right Atrial Pressure 3.0 mmHg Pulmonary Artery Systolic Pressu 18.1 mmHg PV Peak Velocity 74.0 cm/s RV Acceleration Time 0.2 s RV Ejection Time 0.3 s RV AcT/ET 0.5 FINDINGS Left Ventricle Normal left ventricular cavity size. Normal left ventricular systolic function. No regional wall motion abnormalities. Left ventricular ejection fraction is estimated at 60 %. Grade I/IV diastolic dysfunction (abnormal relaxation filling pattern), normal to mildly elevated filling pressures. Right Ventricle The right ventricle is normal in size and function. Right Atrium The right atrium is normal in size. Left Atrium The left atrium is normal in size. Mitral Valve Structurally normal mitral valve without significant stenosis or prolapse. There is no mitral regurgitation. Aortic Valve Structurally normal aortic valve without significant sclerosis or stenosis. There is no aortic regurgitation. Tricuspid Valve Structurally normal tricuspid valve without significant stenosis or regurgitation. Pulmonary artery systolic pressure is normal. Pulmonic Valve Structurally normal pulmonic valve without significant stenosis. There is no pulmonic regurgitation. Pericardium Normal pericardium without effusion. Aorta Normal ascending aorta dimension. CONCLUSIONS 1-Normal left ventricular cavity size. Normal left ventricular systolic function. No regional wall motion abnormalities. Left ventricular ejection fraction is estimated at 60 %. Grade I/IV diastolic dysfunction (abnormal relaxation filling pattern), normal to mildly elevated filling pressures. 2-There is no pericardial effusion. 3-No significant valve abnormalities. 4-Pulmonary artery systolic pressure is within normal limits. 5-Right atrial pressure is around 5 mm of mercury. 5-No significant change since the prior echocardiogram study of 05/29/2019. Benjamin Josue MD (Electronically Signed) Final Date: 07 March 2020 16:46 S
[2020-03-07 07:03] LABS: Glucose Point of Care 214 mg/dL (70-110)
[2020-03-07 07:09] LABS: Basophils % 0.1 %; Hematocrit 28.8 % (37.0-47.0); Lymphocytes # 1.5 10^3/uL (0.8-4.8); Lymphocytes % 20.4 %; Mean Corpuscular HGB Conc 31.3 g/dL (30.0-36.0); Mean Corpuscular Hemoglobin 27.6 pg (28.0-34.0); Mean Corpuscular Volume 88.3 fL (81-99); Mean Platelet Volume 10.5 fL (7.4-10.4); Monocytes # 0.7 10^3/uL (0.2-0.9); Monocytes % 9.9 %; Neutrophils # 4.99 10^3/uL (1.8-7.7); Nucleated Red Blood Cells % 0.3 %; Platelet Count 171 10^3/cmm (130-400); Red Blood Count 3.26 10^6/uL (4.1-5.3); Red Cell Distribution Width 14.9 % (12.1-15.1); White Blood Count 7.4 10^3/uL (4.0-10.0)
[2020-03-07 07:25] LABS: Alanine Aminotransferase 13 U/L (0-33); Albumin Level 2.8 g/dL (3.5-5.2); Alkaline Phosphatase 37 IU/L (35-105); Anion Gap 15.2 (5-19); Aspartate Amino Transferase 16 U/L (0-32); Blood Urea Nitrogen 51 mg/dL (8-23); C Reactive Protein 3.8 mg/L (0.0-4.9); CKMB 3.9 ng/mL (0-5.34); Calcium 8.4 mg/dL (8.5-10.5); Carbon Dioxide 24 mmol/L (22-29); Chloride 107 mmol/L (98-107); Creatine Phosphokinase 317 U/L (26-192); Globulin 2.6 g/dL (1.3-4.6); Glucose 211 mg/dL (65-115); Osmolality Calculated 301 mOsm/kg (285-295); Potassium 3.2 mmol/L (3.5-5.1); Sodium 143 mmol/L (136-145); Total Bilirubin 0.3 mg/dL (0.15-1.2); Total Protein 5.4 g/dL (6.6-8.7)
[2020-03-07] MEDS: iohexol 300 mg/mL 50 mL Btl PO (07:28)
[2020-03-07] MEDS: nitroglycerin 1 gm/inch oint Pkt 0.5 INCH TOPICAL ×3 (08:05→18:07)
[2020-03-07 08:13] LABS: Erythrocyte Sedimentation Rate 97 mm/hr (0-15)
[2020-03-07] MEDS: promethazine 25 mg/mL SDV 1 mL IM (08:47)
[2020-03-07] MEDS: aspirin 81 mg Chew Tablet PO (08:53)
[2020-03-07] MEDS: metoprolol succinate ER (24 HR) 100 mg Tablet PO (08:53)
[2020-03-07] MEDS: ferrous sulfate EC 325 mg Tablet PO (08:53)
--- NOTE | 2020-03-07 09:19 | PC.NURSE ---
this nurse called DR Parra due to increased nausea, he ordered for phenergran 25mg IM to be given along with 4mg zofran IVP now. Michelle GARCIA gave zofran IVP and this nurse gave IM Phenergran.
--- NOTE | 2020-03-07 10:24 | PC.CHAP ---
Pastoral Care Encounter/Spiritual Assessment Type of Contact [] Declined banker mason visit [] Patient/Family/Request visit [] Outpatient visit [] Follow-up visit [] Physician referral [] Code/Alert x[] Routine visit [] Staff referral [] Actively dying [] Patient sleeping [] Family support [] [] Out of room [] Palliative care [] [] Receiving care in room [] Pre-surgical visit [] Trauma [] Long length of stay [] ICU visit [] Other: Relational/Emotional Strength []x Patient feels connected with others/family/visitors/staff [] Distress [] Loneliness/isolation [] Abandonment Spirituality of Patient [x] Person of Katie [] Attends Baptist of their Katie [] Believes in Prayer [] Reads Bible or Anabaptism materials [] There are Spiritual issues to be addressed [employer]anner Interventions [x] Prayer [] Active listening [] Non-anxious presence [] Spiritual/emotional support [] Crisis/trauma care [] Spiritual counseling [] Bereavement support [] Provided bereavement packet [] Provided Bible/devotional materials [] Provided toy/stuffed animal, coloring book to patient or family member [] Provided Communion [] Anointing/Angelica [] Salvation [x] Completed spiritual assessment [] Other: Impact on Illness or Injury [] Angry [] Fearful [x] Anxious [] Often cries [] Exhaustion [] Unable to work [] Unable to attend confucianism [] Unable to walk/stand [] Unable to read [] Unable to drive [] Unable to eat/drink [] Unable to sleep [] Unable to be with family [] Patient intubated [] Other: Summary Time spent with patient 15 min
--- NOTE | 2020-03-07 10:25 | PC.CHAP ---
Pastoral Care Encounter/Spiritual Assessment Type of Contact [] Declined adz worker visit [] Patient/Family/Request visit [] Outpatient visit [] Follow-up visit [] Physician referral [] Code/Alert [] Routine visit [] Staff referral [] Actively dying [] Patient sleeping [] Family support [] [] Out of room [] Palliative care [] [] Receiving care in room [] Pre-surgical visit [] Trauma [] Long length of stay [] ICU visit [] Other: Relational/Emotional Strength [] Patient feels connected with others/family/visitors/staff [] Distress [] Loneliness/isolation [] Abandonment Spirituality of Patient [] Person of Katie [] Attends Restorationism of their Katie [] Believes in Prayer [] Reads Bible or Sikhism materials [] There are Spiritual issues to be addressed Server Service Assistant Interventions [] Prayer [] Active listening [] Non-anxious presence [] Spiritual/emotional support [] Crisis/trauma care [] Spiritual counseling [] Bereavement support [] Provided bereavement packet [] Provided Bible/devotional materials [] Provided toy/stuffed animal, coloring book to patient or family member [] Provided Communion [] Anointing/[place] [] Salvation [] Completed spiritual assessment [] Other: Impact on Illness or Injury [] Angry [] Fearful [] Anxious [] Often cries [] Exhaustion [] Unable to work [] Unable to attend catholic [] Unable to walk/stand [] Unable to read [] Unable to drive [] Unable to eat/drink [] Unable to sleep [] Unable to be with family [] Patient intubated [] Other: Summary Time spent with patient
[2020-03-07 11:33] LABS: Glucose Point of Care 196 mg/dL (70-110)
--- NOTE | 2020-03-07 12:02 | US_ITS ---
NOTE: Report was unsigned for reason: Order was edited. Original Signature date and time was: 03/07/20 1411 WS: [id number] ULTRASOUND RENAL TECHNIQUE: Ultrasound examination of both kidneys. CLINICAL INFORMATION: laura on ckd COMPARISON: None. FINDINGS: RIGHT: Right kidney is normal in size and appearance. Echogenicity: Normal Hydronephrosis: None. Perinephric fluid: None. Right kidney measures: 15.4 cm x 6.6 cm x 6.8 cm. LEFT: Left kidney is normal in size and appearance. Echogenicity: Normal. Cortical thickness: 1.8 cm; Normal. Hydronephrosis: None. Perinephric fluid: None. Left kidney measures: 12.7 cm x 5.5 cm x 6.6 cm. Normal visualized aorta. [facility] US/US renal BI with bladder IMPRESSION: No hydronephrosis in either kidney. Normal bladder. Barreto catheter.
--- NOTE | 2020-03-07 12:03 | P.PN_ITS ---
Subjective Subjective: Interval history: Admitted overnight. H&P and labs noted. On examination patient looking dehydrated. Complaining of mild nausea. States feeling better now. Complains of generalized abdominal pain more in the right upper and middle quadrant, but denies, diarrhea, constipation, weakness. Vitals/I&O/Wt Last Vital Signs Temp 98.3 F 03/07/20 11:12 Pulse 93 03/07/20 11:12 Resp 20 H 03/07/20 11:12 BP 166/95 03/07/20 11:12 Pulse Ox 91 03/07/20 11:12 03/06/20 03/07/20 03/07/20 22:59 06:59 14:59 Intake Total 1000 / 1000 118 / 1118 360 / 360 Output Total 850 / 850 Balance 1000 / 1000 -732 / 268 360 / 360 Weight last 48 hrs Weight 104.326 kg Physical Exam Narrative: EXAM NARRATIVE: General: No acute distress, AO x3, dehydrated HEENT: PERRLA, pupils bilaterally equal and reactive Chest: Normal vesicular breath sounds, no added sounds, equal good air entry bilaterally CVS: S1-S2 regular, no murmurs, no tachycardia, no gallops, no rubs Abdomen: Soft, non-tender bowel sounds sluggish. Neuro: No focal deficits, no facial deformity, AO x3, power 5/5 in all limbs Urinary Catheter Management^: Barreto: Cath Placed During This Visit: yes Reason for Continuing Indwelling Catheter: Acute Urinary Retention or Obstruction Urinary Catheter Date of Insertion: 03/06/20 Data : 03/07/20 06:57 03/07/20 06:57 Micro: Microbiology 03/06/20 16:50 Blood Culture - Preliminary Blood SPECIMEN COLLECTED 03/06/20 16:57 Blood Culture - Preliminary Blood SPECIMEN COLLECTED A&P Assessment and plan (1) Intractable nausea and vomiting: Status: Acute (2) Acute renal failure: On top of chronic kidney disease probably stage III Status: Acute Qualifiers: Acute renal failure type: unspecified Qualified Code(s): N17.9 - Acute kidney failure, unspecified (3) Hypertensive urgency: Status: Acute (4) Diabetes: Currently poorly controlled Status: Chronic Qualifiers: Diabetes mellitus complication status: with hyperglycemia Diabetes mellitus jail insulin use: without jail use Diabetes mellitus type: type 2 Qualified Code(s): E11.65 - Type 2 diabetes mellitus with hyperglycemia (5) CHF (congestive heart failure): Status: Chronic Qualifiers: Heart failure chronicity: chronic Heart failure type: diastolic Qualified Code(s): I50.32 - Chronic diastolic (congestive) heart failure (6) Hyperlipidemia: Chronically on a statin Status: Chronic Qualifiers: Hyperlipidemia type: unspecified Qualified Code(s): E78.5 - Hyperlipidemia, unspecified (7) CKD (chronic kidney disease): Follows with a recreational therapist in [place] Dr. Islas Status: Chronic Qualifiers: Chronic kidney disease stage: stage 3 (moderate) Qualified Code(s): N18.3 - Chronic kidney disease, stage 3 (moderate) (8) Sleep apnea: Noncompliant with CPAP Status: Chronic Qualifiers: Sleep apnea type: obstructive Qualified Code(s): G47.33 - Obstructive sleep apnea (adult) (pediatric) Additional A&P Information Intractable nausea and vomiting: Most likely because of uremia related to acute renal failure. Cannot rule out gastroenteritis or gastroparesis due to uncontrolled type [address] abdomen pelvis results appreciated. Does not show any bowel obstruction. Liver functions are within normal limits. Does not show any gallstones as well. Zofran 4 mg every 6 hours as needed along with promethazine. Continue with clear liquid diet for now. I am unsure if this is from uremia related to acute renal failure, hyperglycemia, hypertensive urgency or gastroenteritis. Vascular etiology is within the differential with her comorbid conditions but lactic acid was normal. Still has her gallbladder but liver functions are normal. With passage of stool, blockage seems less likely but something else to consider. Acute renal failure on CKD: We do not have a baseline creatinine. Patient states is around 2-2.4. 4.1 today. Check renal ultrasound, urine lites, urine eosinophils, urine creatinine. Patient looks little dehydrated for now. Stop IV diuresis. Start patient on gentle IV hydration with normal saline at 50 cc/h. We will monitor for fluid overload. We will request documentation from her recreational therapist at [facility] [address] Islas in [place]. Congestive heart failure: We do not have baseline EF for patient. Get echocardiogram. Patient looks little on the sulfate drier machine operator side. Check input output charting. Continue Barreto catheter to look for volume status. Hypertension: Patient's blood pressure running on the higher side. Goal blood pressure less than 140/90 mmHg. Continue with metoprolol at home dose. We will have to hold off on lisinopril because of acute on chronic renal fa ilure. Start her on amlodipine 10 mg along with hydralazine 10 mg IV every 4 hours as needed for systolic blood pressure of more than 140 mmHg. Type 2 diabetes mellitus: Continue with insulin sliding scale at current dose. We will decrease the dose of glargine to 20 units at bedtime because of MICHELLE and low oral intake for now. Lovenox for DVT prophylaxis Supportive care otherwise Clear liquid diet. Full code Patient's care discussed with both patient and over the phone. All the questions were answered. Attestations Medical Necessity Statement*: Acute renal failure, intractable nausea and vo miting, uncontrolled blood pressures Time Spent in Patient Care: Greater than 35 minutes (>than 50% of time spent in counselling and/or direct pt care on unit) . Coding Level of Care Code Acute Supervisor Assembly Department for Mikhail Fwd Diagnoses Intractable nausea and vomiting R11.2 Acute renal failure N17.9 Acute renal failure type: unspecified Hypertensive urgency I16.0 Diabetes E11.65 Diabetes mellitus complication status: with hyperglycemia Diabetes mellitus bi data architect insulin use: without bi data architect use Diabetes mellitus type: type 2 CHF (congestive heart failure) I50.32 Heart failure chronicity: chronic Heart failure type: diastolic Hyperlipidemia E78.5 Hyperlipidemia type: unspecified CKD (chronic kidney disease) N18.3 Chronic kidney disease stage: stage 3 (moderate) Sleep apnea G47.33 Sleep apnea type: obstructive
[2020-03-07 13:16] LABS: Potassium, Radom Urine 48 mmol/L; Urine Creatinine 71 mg/dL (28-217)
[2020-03-07 13:30] LABS: Eosinophil Urine No Eosinophils Seen; Urine Eosinophil Count 0 (0-0)
[2020-03-07 13:36] LABS: Urine Random Chloride 17 mmol/L; Urine Random Sodium 12 mmol/L
[2020-03-07] MEDS: amlodipine 10 mg Tablet PO (13:46)
[2020-03-07] MEDS: sodium chloride 0.9% 1,000 ML 75 ML IV (13:48)
[2020-03-07 16:41] LABS: Glucose Point of Care 89 mg/dL (70-110)
--- NOTE | 2020-03-07 18:39 | PC.NURSE ---
PT BEGAN THE DAY WITH HAVING PAIN IN STOMACH AND HEAD WITH NAUSEA AND VOMITING, SHE WAS UNABLE TO DRINK THE CONTRAST BEFORE HER CT OR TAKE MORNING MEDICATION SO THIS NURSE NOTIFIED DR HUITRON WHO ORDERED PHENERGRAN AND ZOFRAN TO BE GIVEN AND AFTER APPROXIMATELY 15- 30 MINUTES SHE WAS ABLE TO TAKE MORNING MEDICATIONS, AND DRINK THE CONTRAST AFTER NAUSEA MEDICATIONS WERE ADMINISTERED. SHE ONLY RECEIVED ONE MORE DOSE OF ZOFRAN JUST BEFORE DINNER AND HAD A PAIN PILL IN THE AFTERNOON WHERE SHE THEN BEGAN TO RELAX AND TAKE AN AFTERNOON NAP. JAYDA WITH RESPIRATORY NOTIFIED THIS NURSE AT APPROXIMATELY 1600 THAT SHE WAS SITTING AT 87 PERCENT ON ROOM AIR SO SHE PLACED THE PT ON 3 LITERS NASAL CANNULA. PT STATED SHE HAD NO ISSUES WITH BREATHING AND HAD NO IDEA HER OXYGEN WAS LOW. SPOKE WITH IN THE AFTERNOON TO UPDATE HIM. PT WAS ABLE TO EAT DINNER ONCE SHE HAD RECEIVED ZOFRAN AND SEEMED MORE CHEERFUL AND STATED SHE FELT BETTER THEN SHE DID THIS MORNING.
[2020-03-07] MEDS: hyDRALAzine 20 mg/mL INJ 1 mL 10 MG IVP (19:35)
[2020-03-07 21:02] LABS: Glucose Point of Care 101 mg/dL (70-110)
[2020-03-07] MEDS: atorvastatin 40 mg Tablet 80 MG PO (21:09)
[2020-03-07] MEDS: sennosides-docusate Tablet 2 TAB PO (21:13)
[2020-03-07] MEDS: polyethylene glycol 3350 Pkt 17 gm PO (21:14)
[2020-03-08] VITALS (10 sets, daily range): BP systolic 115–174; BP diastolic 70–85; PULSE 75–90; RESP 16–20; TEMP 36.7–37.1; O2SAT 91–96
[2020-03-08] MEDS: enoxaparin 30 mg/0.3 mL Syringe SUBCUT ×2 (00:38→23:59)
[2020-03-08] MEDS: nitroglycerin 1 gm/inch oint Pkt 0.5 INCH TOPICAL ×4 (00:38→17:40)
[2020-03-08] MEDS: hyDRALAzine 20 mg/mL INJ 1 mL 10 MG IVP ×2 (00:44→05:12)
[2020-03-08 03:43] LABS: Basophils % 0.4 %; Eosinophils # 0.1 10^3/uL (0.0-0.8); Eosinophils % 1.6 %; Hemoglobin 9.5 g/dL (11.5-15.3); Lymphocytes # 1.8 10^3/uL (0.8-4.8); Lymphocytes % 22.6 %; Mean Corpuscular HGB Conc 30.6 g/dL (30.0-36.0); Mean Corpuscular Hemoglobin 27.5 pg (28.0-34.0); Mean Corpuscular Volume 89.6 fL (81-99); Mean Platelet Volume 11.3 fL (7.4-10.4); Monocytes # 0.8 10^3/uL (0.2-0.9); Monocytes % 10.3 %; Neutrophils # 5.14 10^3/uL (1.8-7.7); Neutrophils % 63.5 %; Nucleated Red Blood Cells % 0.4 %; Platelet Count 192 10^3/cmm (130-400); Red Blood Count 3.46 10^6/uL (4.1-5.3); Red Cell Distribution Width 15.3 % (12.1-15.1); White Blood Count 8.1 10^3/uL (4.0-10.0)
[2020-03-08 04:03] LABS: Alanine Aminotransferase 13 U/L (0-33); Albumin Level 2.8 g/dL (3.5-5.2); Alkaline Phosphatase 39 IU/L (35-105); Anion Gap 15.5 (5-19); Aspartate Amino Transferase 22 U/L (0-32); Blood Urea Nitrogen 45 mg/dL (8-23); Calcium 8.3 mg/dL (8.5-10.5); Carbon Dioxide 23 mmol/L (22-29); Chloride 106 mmol/L (98-107); Globulin 2.3 g/dL (1.3-4.6); Glucose 151 mg/dL (65-115); Osmolality Calculated 293 mOsm/kg (285-295); Potassium 3.5 mmol/L (3.5-5.1); Sodium 141 mmol/L (136-145); Total Bilirubin 0.2 mg/dL (0.15-1.2); Total Protein 5.1 g/dL (6.6-8.7)
[2020-03-08] MEDS: HYDROcodone-acetaminophen 5-325 mg Tablet 1 TAB PO ×3 (04:25→23:59)
[2020-03-08] MEDS: ondansetron 2 mg/ML SDV 2 mL 4 MG IVP (05:17)
--- NOTE | 2020-03-08 05:31 | PC.NURSE ---
SHIFT SUMMARY no emesis throughout the night. pt reported she is keeping sprite down really well, but afraid water will make her sick. nausea reported at 0515, IV zofran given by Marcia GARCIA. IV hydralazine given PRN Q4h after each set of vitals throughout the shift for a systolic bp >140. Urine output of 800 mL. No bm this shift. C/o headache rating a 7/10, PO Silver Plume given by this nurse.
[2020-03-08] MEDS: metoprolol succinate ER (24 HR) 100 mg Tablet PO (06:15)
[2020-03-08 07:15] LABS: Glucose Point of Care 158 mg/dL (70-110)
[2020-03-08] MEDS: aspirin 81 mg Chew Tablet PO (08:01)
[2020-03-08] MEDS: sennosides-docusate Tablet 2 TAB PO (08:01)
[2020-03-08] MEDS: ferrous sulfate EC 325 mg Tablet PO (08:02)
[2020-03-08] MEDS: amlodipine 10 mg Tablet PO (08:02)
[2020-03-08] MEDS: venlafaxine ER (24HR) 150 mg Capsule PO (08:02)
[2020-03-08] MEDS: polyethylene glycol 3350 Pkt 17 gm PO (08:02)
[2020-03-08 11:58] LABS: Glucose Point of Care 213 mg/dL (70-110)
[2020-03-08] MEDS: sodium chloride 0.9% 1,000 ML 75 ML IV ×2 (12:57→21:06)
[2020-03-08] MEDS: hyDRALAzine 25 mg Tablet PO ×3 (12:59→21:03)
[2020-03-08 13:06] LABS: Phosphorus 5.8 mg/dL (2.5-4.5)
--- NOTE | 2020-03-08 15:55 | PM.PN ---
Subjective Subjective: Interval history: Patient states she is doing a lot better. She has not had any more nausea or vomiting. She denies of having any belly pain. Denies of having any diarrhea. Tolerating p.o. diet her diet well. Somehow her fluids were stopped last night. Vitals/I&O/Wt Last Vital Signs Temp 98.5 F 03/08/20 15:47 Pulse 81 03/08/20 15:47 Resp 20 H 03/08/20 15:47 BP 149/72 03/08/20 15:47 Pulse Ox 92 03/08/20 15:47 03/08/20 03/08/20 03/08/20 06:59 14:59 22:59 Intake Total 1680 / 1680 Output Total 800 / 800 Balance -800 / 40 1680 / 1680 Weight last 48 hrs Weight 104.326 kg Physical Exam Narrative: EXAM NARRATIVE: General: No acute distress, AO x3, dehydrated HEENT: PERRLA, pupils bilaterally equal and reactive Chest: Normal vesicular breath sounds, no added sounds, equal good air entry bilaterally CVS: S1-S2 regular, no murmurs, no tachycardia, no gallops, no rubs Abdomen: Soft, non-tender bowel sounds sluggish. Neuro: No focal deficits, no facial deformity, AO x3, power 5/5 in all limbs Urinary Catheter Management^: Barreto: Cath Placed During This Visit: yes Reason for Continuing Indwelling Catheter: Acute Urinary Retention or Obstruction Urinary Catheter Date of Insertion: 03/06/20 Data : 03/08/20 02:55 03/08/20 02:55 Micro: Microbiology 03/06/20 18:28 Urine Culture - Preliminary Urine,Clean Catch 03/06/20 16:50 Blood Culture - Preliminary Blood NEGATIVE TO DATE 03/06/20 16:57 Blood Culture - Preliminary Blood NEGATIVE TO DATE A&P Assessment and plan (1) Intractable nausea and vomiting: Status: Acute (2) Acute renal failure: On top of chronic kidney disease probably stage III Status: Acute Qualifiers: Acute renal failure type: unspecified Qualified Code(s): N17.9 - Acute kidney failure, unspecified (3) Hypertensive urgency: Status: Acute (4) Diabetes: Currently poorly controlled Status: Chronic Qualifiers: Diabetes mellitus type: type 2 Diabetes mellitus longterm insulin use: without watermelon harvesting supervisor use Diabetes mellitus complication status: with hyperglycemia Qualified Code(s): E11.65 - Type 2 diabetes mellitus with hyperglycemia (5) CHF (congestive heart failure): Status: Deleted Qualifiers: Heart failure type: diastolic Heart failure chronicity: chronic Qualified Code(s): I50.32 - Chronic diastolic (congestive) heart failure (6) Hyperlipidemia: Chronically on a statin Status: Chronic Qualifiers: Hyperlipidemia type: unspecified Qualified Code(s): E78.5 - Hyperlipidemia, unspecified (7) CKD (chronic kidney disease): Follows with a legal process specialist in [place] Dr. Islas Status: Chronic Qualifiers: Chronic kidney disease stage: stage 3 (moderate) Qualified Code(s): N18.3 - Chronic kidney disease, stage 3 (moderate) (8) Sleep apnea: Noncompliant with CPAP Status: Chronic Qualifiers: Sleep apnea type: obstructive Qualified Code(s): G47.33 - Obstructive sleep apnea (adult) (pediatric) (9) Diastolic heart failure: Status: Acute Additional A&P Information Intractable nausea and vomiting: Most likely because of uremia related to acute renal failure. Cannot rule out gastroenteritis or gastroparesis due to uncontrolled type [address] abdomen pelvis results appreciated and suggestive of sigmoid colon constipation without any other acute abnormality. Does not show any bowel obstruction. Liver functions are within normal limits. Does not show any gallstones as well. Zofran 4 mg every 6 hours as needed along with promethazine. Advance diet to GI soft diet. Acute renal failure on CKD: Most likely because of poor oral intake along with aggressive diuresis at home with Lasix, hydrochlorothiazide along with lisinopril dose every day. We do not have a baseline creatinine. Patient states is around 2-2.4. Creatinine stable. Renal ultrasound results appreciated. FeNa-0.4 consistent with prerenal. Continue with IV hydration at 75 cc/h. No further diuresis for now. We will monitor for fluid overload. We will request documentation from her legal process specialist at [facility] Dr. Islas in [place]. Congestive heart failure: Echocardiogram done yesterday consistent with EF of 60% with grade 1 diastolic dysfunction. Frequent bladder charting. Continue Barreto catheter to monitor urine output. Hypertension: Patient's blood pressure running on the higher side. Goal blood pressure less than 140/90 mmHg. Continue with metoprolol and amlodipine 10 mg. We will start patient on hydralazine 25 mg 3 times daily. Continue with hydralazine 10 mg IV every 4 hours as needed for systolic blood pressure of more than 150 mmHg. Type 2 diabetes mellitus: Continue with insulin sliding scale at current dose. We will decrease the dose of glargine at 15 units at bedtime because of MICHELLE and low oral intake for now. Lovenox for DVT prophylaxis Supportive care otherwise GI soft diet Full code Patient's care discussed with both patient and over the phone. All the questions were answered. Attestations Medical Necessity Statement*: Intractable nausea, vomiting, acute renal failure Time Spent in Patient Care: Greater than 35 minutes (>than 50% of time spent in counselling and/or direct pt care on unit). Coding Level of Care Code Acute Color Weigher for Mikhail Gaitan Diagnoses Intractable nausea and vomiting R11.2 Acute renal failure N17.9 Acute renal failure type: unspecified Hypertensive urgency I16.0 Diabetes E11.65 Diabetes mellitus type: type 2 Diabetes mellitus longterm insulin use: without longterm use Diabetes mellitus complication status: with hyperglycemia CHF (congestive heart failure) I50.32 Heart failure type: diastolic Heart failure chronicity: chronic Hyperlipidemia E78.5 Hyperlipidemia type: unspecified CKD (chronic kidney disease) N18.3 Chronic kidney disease stage: stage 3 (moderate) Sleep apnea G47.33 Sleep apnea type: obstructive Diastolic heart failure I50.30
[2020-03-08 17:38] LABS: Glucose Point of Care 86 mg/dL (70-110)
--- NOTE | 2020-03-08 18:35 | PC.NURSE ---
pt has had no nausea, emesis, or pain in abdomen this shift. pt has had hydrocodone for headaches, but only one pain pill was administered this shift. pt states she feels better overall and tolerated her dinner with no complaints. pt sat up in chair after breakfast and stated she felt so much better after doing so. No BM this shift, will continue bowel regimen as ordered by Dr Parra.
[2020-03-08 20:19] LABS: Glucose Point of Care 150 mg/dL (70-110)
[2020-03-08] MEDS: atorvastatin 40 mg Tablet 80 MG PO (21:03)
[2020-03-08] MEDS: insulin glargine 100 units/1 mL 15 UNIT SUBCUT (21:03)
[2020-03-09] VITALS (7 sets, daily range): BP systolic 150–167; BP diastolic 66–89; PULSE 80–89; RESP 16–22; TEMP 36.4–37.4; O2SAT 92–96
[2020-03-09 04:44] LABS: Basophils % 0.3 %; Eosinophils # 0.2 10^3/uL (0.0-0.8); Eosinophils % 2.4 %; Hematocrit 30.2 % (37.0-47.0); Hemoglobin 9.4 g/dL (11.5-15.3); Lymphocytes # 1.7 10^3/uL (0.8-4.8); Lymphocytes % 24.7 %; Mean Corpuscular HGB Conc 31.1 g/dL (30.0-36.0); Mean Corpuscular Hemoglobin 28.1 pg (28.0-34.0); Mean Corpuscular Volume 90.1 fL (81-99); Mean Platelet Volume 11.5 fL (7.4-10.4); Monocytes # 0.6 10^3/uL (0.2-0.9); Monocytes % 9.1 %; Neutrophils % 61.1 %; Nucleated Red Blood Cells % 0 %; Platelet Count 181 10^3/cmm (130-400); Red Blood Count 3.35 10^6/uL (4.1-5.3); Red Cell Distribution Width 15.3 % (12.1-15.1); White Blood Count 6.7 10^3/uL (4.0-10.0)
[2020-03-09 05:18] LABS: Alanine Aminotransferase 14 U/L (0-33); Albumin Level 2.7 g/dL (3.5-5.2); Alkaline Phosphatase 39 IU/L (35-105); Anion Gap 11.4 (5-19); Aspartate Amino Transferase 18 U/L (0-32); Blood Urea Nitrogen 41 mg/dL (8-23); Calcium 7.8 mg/dL (8.5-10.5); Carbon Dioxide 25 mmol/L (22-29); Chloride 104 mmol/L (98-107); Globulin 2.7 g/dL (1.3-4.6); Glucose 139 mg/dL (65-115); Osmolality Calculated 284 mOsm/kg (285-295); Potassium 3.4 mmol/L (3.5-5.1); Sodium 137 mmol/L (136-145); Total Bilirubin 0.2 mg/dL (0.15-1.2); Total Protein 5.4 g/dL (6.6-8.7)
[2020-03-09] MEDS: metoprolol succinate ER (24 HR) 100 mg Tablet PO (06:05)
[2020-03-09 06:17] LABS: Glucose Point of Care 122 mg/dL (70-110)
[2020-03-09] MEDS: polyethylene glycol 3350 Pkt 17 gm PO (07:58)
[2020-03-09] MEDS: ferrous sulfate EC 325 mg Tablet PO (07:59)
[2020-03-09] MEDS: aspirin 81 mg Chew Tablet PO (07:59)
[2020-03-09] MEDS: hyDRALAzine 25 mg Tablet PO (07:59)
[2020-03-09] MEDS: amlodipine 10 mg Tablet PO (07:59)
[2020-03-09] MEDS: venlafaxine ER (24HR) 150 mg Capsule PO (07:59)
[2020-03-09] MEDS: sennosides-docusate Tablet 2 TAB PO (08:04)
[2020-03-09] MEDS: sodium chloride 0.9% 1,000 ML 75 ML IV (08:04)
--- NOTE | 2020-03-09 09:00 | PC.SOCIAL ---
Pg 2 IMM Explained to pt Pg 2 IMM. Pt verbally understands. No questions voiced. Provided pt a copy & left on pt's bedside table. Signed, dated, & timed a copy & placed in pt's chart.
[2020-03-09 10:51] LABS: Glucose Point of Care 181 mg/dL (70-110)
[2020-03-09] MEDS: nitroglycerin 1 gm/inch oint Pkt 0.5 INCH TOPICAL ×2 (12:09→17:41)
--- NOTE | 2020-03-09 13:53 | P.PN_ITS ---
Subjective Subjective: Interval history: Patient states she is doing a lot better. She has not had any more nausea or vomiting. She denies of having any belly pain. Denies of having any diarrhea. She tolerated the advancement of diet to GI soft diet well. She denies any nausea, vomiting, headache, dizziness, abdominal pain, diarrhea. Vitals/I&O/Wt Last Vital Signs Temp 97.5 F L 03/09/20 11:16 Pulse 89 03/09/20 11:16 Resp 18 03/09/20 11:16 BP 150/76 03/09/20 11:16 Pulse Ox 96 03/09/20 11:16 03/08/20 03/09/20 03/09/20 22:59 06:59 14:59 Intake Total 1291.25 / 2971.25 1542.5 / 1542.5 Output Total 650 / 650 600 / 1250 400 / 400 Balance 641.25 / 2321.25 -600 / 1721.25 1142.5 / 1142.5 Physical Exam Narrative: EXAM NARRATIVE: General: No acute distress, AO x3, dehydrated HEENT: PERRLA, pupils bilaterally equal and reactive Chest: Normal vesicular breath sounds, no added sounds, equal good air entry bilaterally CVS: S1-S2 regular, no murmurs, no tachycardia, no gallops, no rubs Abdomen: Soft, non-tender bowel sounds sluggish. Neuro: No focal deficits, no facial deformity, AO x3, power 5/5 in all limbs Urinary Catheter Management^: Barreto: Cath Placed During This Visit: yes Reason for Continuing Indwelling Catheter: Acute Urinary Retention or Obstruction Urinary Catheter Date of Insertion: 03/06/20 Data : 03/09/20 03:55 03/09/20 03:55 Micro: Microbiology 03/06/20 18:28 Urine Culture - Final Urine,Clean Catch A&P Assessment and plan (1) Intractable nausea and vomiting: Status: Acute (2) Acute renal failure: On top of chronic kidney disease probably stage III Status: Acute Qualifiers: Acute renal failure type: unspecified Qualified Code(s): N17.9 - Acute kidney failure, unspecified (3) Hypertensive urgency: Status: Acute (4) Diabetes: Currently poorly controlled Status: Chronic Qualifiers: Diabetes mellitus type: type 2 Diabetes mellitus chcf insulin use: without long term care social worker use Diabetes mellitus complication status: with hyperglycemia Qualified Code(s): E11.65 - Type 2 diabetes mellitus with hyperglycemia (5) CHF (congestive heart failure): Status: Deleted Qualifiers: Heart failure type: diastolic Heart failure chronicity: chronic Qualified Code(s): I50.32 - Chronic diastolic (congestive) heart failure (6) Hyperlipidemia: Chronically on a statin Status: Chronic Qualifiers: Hyperlipidemia type: unspecified Qualified Code(s): E78.5 - Hyperlipidemia, unspecified (7) CKD (chronic kidney disease): 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 Islas Status: Chronic Qualifiers: Chronic kidney disease stage: stage 3 (moderate) Qualified Code(s): N18.3 - Chronic kidney disease, stage 3 (moderate) (8) Sleep apnea: Noncompliant with CPAP Status: Chronic Qualifiers: Sleep apnea type: obstructive Qualified Code(s): G47.33 - Obstructive sleep apnea (adult) (pediatric) (9) Diastolic heart failure: Status: Acute Additional A&P Information Intractable nausea and vomiting: Most likely because of uremia related to acute renal failure. Cannot rule out gastroenteritis or gastroparesis due to uncontrolled type [address] abdomen pelvis results appreciated and suggestive of sigmoid colon constipation without any other acute abnormality. Does not show any bowel obstruction. Liver functions are within normal limits. Does not show any gallstones as well. Zofran 4 mg every 6 hours as needed along with promethazine. Continue with low-salt diet. Patient will most most likely be discharged on GI soft/brat diet for at least the next 1 week and then advance as possible. Acute renal failure on CKD: Most likely because of poor oral intake along with aggressive diuresis at home with Lasix, hydrochlorothiazide along with lisinopril dose every day. We do not have a baseline creatinine. Patient states is around 2-2.4. Creatinine stable. Renal ultrasound results appreciated. FeNa-0.4 consistent with prerenal. Continue with IV hydration at 50 cc/h. No further diuresis for now. We will monitor for fluid overload. We will request documentation from her veneer joiner at [facility] Dr. Islas in [place]. Congestive heart failure: Echocardiogram done yesterday consistent with EF of 60% with grade 1 diastolic dysfunction. Frequent bladder charting. DC Barreto catheter. Hypertension: Patient's blood pressure running on the higher side. Goal blood pressure less than 140/90 mmHg. Blood pressures have been running little high we will have to readjust medications further. Continue with metoprolol and amlodipine 10 mg. Increase hydralazine to 50 mg 3 times daily. Continue with hydralazine 10 mg IV every 4 hours as needed for systolic blood pressure of more than 150 mmHg. Type 2 diabetes mellitus: Blood sugars well controlled. Continue with current insulin sliding scale and glargine at 15 units at bedtime. Lovenox for DVT prophylaxis Supportive care otherwise GI soft diet Full code If patient continues to do well can plan to discharge patient tomorrow. Patient needs further hospitalization for antihypertensive adjustments. Attestations Medical Necessity Statement*: MICHELLE, hypertension, intractable nausea and vomiting. Time Spent in Patient Care: Greater than 35 minutes (>than 50% of time spent in counselling and/or direct pt care on unit) . Coding Level of Care Code Acute Robotics Specialist for Komal Fwd Diagnoses Intractable nausea and vomiting R11.2 Acute renal failure N17.9 Acute renal failure type: unspecified Hypertensive urgency I16.0 Diabetes E11.65 Diabetes mellitus type: type 2 Diabetes mellitus long term care social worker insulin use: without long term care social worker use Diabetes mellitus complication status: with hyperglycemia CHF (congestive heart failure) I50.32 Heart failure type: diastolic Heart failure chronicity: chronic Hyperlipidemia E78.5 Hyperlipidemia type: unspecified CKD (chronic kidney disease) N18.3 Chronic kidney disease stage: stage 3 (moderate) Sleep apnea G47.33 Sleep apnea type: obstructive Diastolic heart failure I50.30
[2020-03-09] MEDS: hyDRALAzine 50 mg Tablet PO ×2 (14:11→20:47)
--- NOTE | 2020-03-09 15:49 | PC.NURSE ---
1200: Patients colbert catheter was removed and intact. SMW, CUSTOMER CARE CONSULTANT
[2020-03-09 16:57] LABS: Glucose Point of Care 103 mg/dL (70-110)
--- NOTE | 2020-03-09 17:58 | PC.NURSE ---
SHIFT SUMMARY - Patient reports swelling in lower extremities. After assessment 1+ edema noted. physician notified and no new orders. ELIEZERW, MONUMENT LETTERER
[2020-03-09 20:24] LABS: Glucose Point of Care 145 mg/dL (70-110)
[2020-03-09] MEDS: atorvastatin 40 mg Tablet 80 MG PO (20:47)
[2020-03-09] MEDS: insulin glargine 100 units/1 mL 15 UNIT SUBCUT (20:48)
[2020-03-10] VITALS: BP 157/75; PULSE 83; RESP 14; TEMP 36.8; O2SAT 94
[2020-03-10] MEDS: nitroglycerin 1 gm/inch oint Pkt 0.5 INCH TOPICAL ×2 (00:09→11:52)
[2020-03-10] MEDS: enoxaparin 30 mg/0.3 mL Syringe SUBCUT (00:09)
[2020-03-10 03:51] VITALS: BP 176/91; PULSE 97; RESP 12; TEMP 36.7; O2SAT 93
[2020-03-10 06:04] LABS: Alanine Aminotransferase 17 U/L (0-33); Albumin Level 2.9 g/dL (3.5-5.2); Alkaline Phosphatase 41 IU/L (35-105); Anion Gap 15.4 (5-19); Aspartate Amino Transferase 26 U/L (0-32); Blood Urea Nitrogen 55 mg/dL (8-23); Carbon Dioxide 21 mmol/L (22-29); Chloride 105 mmol/L (98-107); Globulin 2.4 g/dL (1.3-4.6); Glucose 186 mg/dL (65-115); Osmolality Calculated 289 mOsm/kg (285-295); Potassium 3.4 mmol/L (3.5-5.1); Sodium 138 mmol/L (136-145); Total Bilirubin 0.2 mg/dL (0.15-1.2); Total Protein 5.3 g/dL (6.6-8.7)
[2020-03-10] MEDS: metoprolol succinate ER (24 HR) 100 mg Tablet PO (06:06)
[2020-03-10 06:29] LABS: Glucose Point of Care 181 mg/dL (70-110)
[2020-03-10 07:38] VITALS: BP 179/84; PULSE 93; RESP 22; TEMP 36.3; O2SAT 92
[2020-03-10] MEDS: venlafaxine ER (24HR) 150 mg Capsule PO (08:27)
[2020-03-10] MEDS: amlodipine 10 mg Tablet PO (08:27)
[2020-03-10] MEDS: aspirin 81 mg Chew Tablet PO (08:27)
[2020-03-10] MEDS: hyDRALAzine 50 mg Tablet PO (08:28)
[2020-03-10] MEDS: ferrous sulfate EC 325 mg Tablet PO (08:28)
[2020-03-10 10:40] LABS: Glucose Point of Care 214 mg/dL (70-110)
[2020-03-10 11:18] VITALS: BP 186/78; PULSE 100; RESP 18; TEMP 36.4; O2SAT 96
--- NOTE | 2020-03-10 12:58 | PM.DCS ---
Discharge Providers Date of Admission: 03/06/20 23:14 Date of Discharge: March 10, 2020 Attending Provider at Admission: Nory Pfeiffer MD Attending Provider at Discharge: Hardy Parra MD Primary Care Provider: Mana Barragan MD Diagnoses at Discharge Discharge Diagnosis (1) Intractable nausea and vomiting: Status: Acute (2) Acute renal failure: Status: Acute Qualifiers: Acute renal failure type: unspecified Qualified Code(s): N17.9 - Acute kidney failure, unspecified (3) Hypertensive urgency: Status: Acute (4) Diabetes: Status: Chronic Qualifiers: Diabetes mellitus complication status: with hyperglycemia Diabetes mellitus alf insulin use: without intermediate manager use Diabetes mellitus type: type 2 Qualified Code(s): E11.65 - Type 2 diabetes mellitus with hyperglycemia (5) CHF (congestive heart failure): Status: Deleted Qualifiers: Heart failure chronicity: chronic Heart failure type: diastolic Qualified Code(s): I50.32 - Chronic diastolic (congestive) heart failure (6) Hyperlipidemia: Status: Chronic Qualifiers: Hyperlipidemia type: unspecified Qualified Code(s): E78.5 - Hyperlipidemia, unspecified (7) CKD (chronic kidney disease): Status: Chronic Qualifiers: Chronic kidney disease stage: stage 3 (moderate) Qualified Code(s): N18.3 - Chronic kidney disease, stage 3 (moderate) (8) Sleep apnea: Status: Chronic Problem details: no cpap due to intolerance Qualifiers: Sleep apnea type: obstructive Qualified Code(s): G47.33 - Obstructive sleep apnea (adult) (pediatric) (9) Diastolic heart failure: Status: Acute Problem details: Echo done February 2020 shows an EF of 60% with grade 1 diastolic dysfunction. Reason for Visit Reason for Visit: SICK / HIGH BLOOD GLUCOSE Hospital Course Discharge Summary: Hailey Vasquez is a 69 year old female who presented to the emergency room complaining of being sick . She started having nausea and vomiting on Saturday. Reports 3-4 episodes of vomiting a day. Generally what ever she has tried to take N. She is lost her appetite and quit trying to take anything in but has continued to have episodes of vomiting, bilious or clear. Has had some dry heaves. With the vomiting episode she reports abdominal pain rated at its worst up to a 10 out of 10. Pain is relieved with some with vomiting. She does report some constipation intermittently. Last bowel movement was a couple of days ago. She is passing gas. Denies any diarrhea. Has not had any abdominal distention. Her had wanted her to come in for evaluation but she refused initially. He found her sitting on the toilet to get up because she was so weak and she finally agreed to come in. Only recent change in medications reported was blood pressure medicine was a decrease in the amount of Norvasc that she is taking. After her vomiting started she quit taking all of her medicines. She denies having had similar symptoms in the past. Denies any painful urination or urinary frequency. Barreto catheter was placed in the emergency room and she reports it is uncomfortable. She has not had any fever. Denies any known sick contacts in particular denies any known contacts with COVID. Has not had sore throat or physical difficulty swallowing. Has not had any headaches. Reports the weakness but denies aches and pains. Work-up in the emergency room showed hyperglycemia, hypertension, acute renal failure on chronic kidney disease, normal lactic acid. Lipase was normal. Cardiac enzymes were not done nor was an EKG though these have been ordered. Patient denies any episodes of chest pain, shortness of breath, dyspnea on exertion or lower extremity edema. She has a history of hypertension, hyperlipidemia and diabetes but denies any known history of coronary artery disease. She has been told that she has CHF. Last echocardiogram was done in May or June of last year and showed normal systolic function with an estimated ejection fraction at 65%. She received several doses of Zofran, IV fluids and some labetalol in the emergency room. She is being admitted for further evaluation and treatment. She was admitted to the hospital for further work-up and treatment. CT abdomen was done which was negative for any intra-abdominal pathology. Liver functions remained within normal limits. Patient was started on clear liquid diet and was advanced gradually. Patient was found to be in acute on chronic kidney disease which was thought to be because of dehydration due to nausea, vomiting and poor oral intake along with being on multiple medications like lisinopril, furosemide, hydrochlorothiazide. Medical reconciliation was done for nephrotoxic drugs and these medications were withheld. Gradually her uremia improved and her symptoms also alleviated. Her creatinine remained stable around 4.5-4.2. Because multiple antihypertensives were stopped her other antihypertensives had to be adjusted. She was started on hydralazine and the medication was uptitrated accordingly. As patient was able to tolerate oral diet well she is been discharged in hemodynamic stable condition with advised to check her blood pressure 3 times a day and maintain a blood pressure diary for a primary care provider and computer numerical control grinder. She is advised to follow-up with her primary care provider and computer numerical control grinder within next 1 to 2 weeks and repeat a BMP. Medications have been provided to her through meds to bed. Physical Exam Narrative: EXAM NARRATIVE: General: No acute distress, AO x3, dehydrated HEENT: PERRLA, pupils bilaterally equal and reactive Chest: Normal vesicular breath sounds, no added sounds, equal good air entry bilaterally CVS: S1-S2 regular, no murmurs, no tachycardia, no gallops, no rubs Abdomen: Soft, non-tender bowel sounds sluggish. Neuro: No focal deficits, no facial deformity, AO x3, power 5/5 in all limbs Urinary Catheter Management^: Barreto: Cath Placed During This Visit: yes, but has since been removed by the nurse Reason for Continuing Indwelling Catheter: Decision to DC Catheter Urinary Catheter Date of Insertion: 03/06/20 Date Urinary Catheter Removed: 03/09/20 Time Urinary Catheter Discontinued: 21:06 Discharge Data Data Completed and Pending: Completed Studies During Hospitalization Category Date Time Status CT abdomen pelvis wo con [id number] Rout ine Cat Scan 03/07/20 06:[address] head wo con* 7 0450 Urgent Cat Scan 03/06/20 18:18 Completed XR chest 1V nilda ble [id number] Urgent Exams 03/06/20 16:35 Completed CV echo limited 9 [id number] Routine Ultrasound 03/07/20 06:49 Completed US renal BI* [id number] Routine Ultrasound 03/07/20 12:02 Completed Pending at discharge Category Date Time Status Blood Culture Sta t Lab 03/06/20 16:50 Results Labs from last 24 hours 03/10/20 03/10/20 03/10/20 10:35 06:25 05:25 Sodium 138 Potassium 3.4 L Chloride 105 Carbon Dioxide 21 L Anion Gap 15.4 BUN 55 H Creatinine 4.5 H Glucose 186 H POC Glucose 214 181 Calculated Osmolal ity 289 Calcium 8.0 L Total Bilirubin 0.2 AST 26 ALT 17 Alkaline Phosphata se 41 Total Protein 5.3 L Albumin 2.9 L Globulin 2.4 03/09/20 03/09/20 20:20 16:37 Sodium Potassium Chloride Carbon Dioxide Anion Gap BUN Creatinine Glucose POC Glucose 145 103 Calculated Osmolal ity Calcium Total Bilirubin AST ALT Alkaline Phosphata se Total Protein Albumin Globulin Vitals: Last Vital Signs Temp 97.5 F L 03/10/20 11:18 Pulse 100 03/10/20 11:18 Resp 18 03/10/20 11:18 BP 186/78 03/10/20 11:18 Pulse Ox 96 03/10/20 11:18 Discharge Plan Discharge Patient Disposition: Home, Self-Care Condition: Stable Prescriptions: New clonidine HCl 0.1 mg Tablet 0.1 mg PO BID PRN (Reason: SBP> 180) Qty: 15 RF: 0 aspirin 81 mg Tablet,Chewable 81 mg PO DAILY Qty: 30 RF: 0 hydralazine 50 mg Tablet 75 mg PO TID Qty: 90 RF: 0 Continued rosuvastatin 40 mg tablet 40 mg PO BEDTIME RF: 0 metaxalone [Skelaxin] 800 mg tablet 800 mg PO TID Qty: 30 RF: 0 venlafaxine 150 mg capsule,extended release 24hr 150 mg PO QDAY Qty: 90 RF: 0 iron 325 mg (65 mg iron) Tablet 325 mg PO DAILY RF: 0 Novolin R Regular U-100 Insuln 100 unit/mL solution 60 sliding scale dose SUBCUT DAILY RF: 0 Vitamin D3 25 mcg (1,000 unit) Tablet 25 mcg PO DAILY RF: 0 Invokana 300 mg tablet 300 mg PO DAILY RF: 0 Toujeo SoloStar U-300 Insulin 300 unit/mL (1.5 mL) insulin pen 80 unit SUBCUT DAILY RF: 0 metoprolol succinate 100 mg tablet extended release 24 hr 100 mg PO DAILY RF: 0 potassium chloride 20 mEq tablet,ER particles/crystals 20 meq PO BID RF: 0 Changed amlodipine 10 mg tablet 10 mg PO DAILY Qty: 60 RF: 0 Discontinued hydrochlorothiazide 25 mg tablet 25 mg PO DAILY RF: 0 lisinopril 40 mg tablet 40 mg PO BID RF: 0 furosemide [Lasix] 40 mg tablet 40 mg PO DAILY Qty: 90 RF: 1 clonidine HCl 0.1 mg tablet 0.1 mg PO BID RF: 0 Discharge Orders: Discharge Order (Routine); Ordered 03/10/20 Ordered By: Hardy Parra Discharge Diet: Advance as tolerated, Cardiac, Diabetic and Low Fat Discharge Activity: Resume usual activity Patient Instructions: Clonidine (By mouth), Aspirin (By mouth), Hydralazine (By mouth), Nausea and Vomiting - Oncology, Chronic Hypertension (DC) Activity Restrictions/Additional Instructions: Please follow-up with your computer numerical control grinder within next 1 week and check your CMP. Please maintain a blood pressure diary by checking your blood pressures 3 times a day. Please take clonidine 0.1 mg twice daily as needed for systolic blood pressure of more than 190 mmHg. Multiple medications have been withheld for you because of worsening renal function causing you to have nausea. You are not supposed to take lisinopril, hydrochlorothiazide, Lasix till you see your computer numerical control grinder and repeat a CMP. Hydralazine has been added to your medication list to control your blood pressures. Take 75 mg 3 times a day. Take GI soft diet for next 1 week and then advance as tolerated to cardiac diabetic regular diet. Discharge Date/Time: 03/10/20 14:50 Discharge Attestations Time Spent in Discharge Care*: greater than 30 min Specific Discharge Activities: Specific discharge activities: educating patient, educating and/or supporting family/caregiver, discussing with pcp/other providers, discussing with field case manager/social workers/dc planners, documenting/other paperwork and evaluating patient/reviewing data Status at Discharge: Cognitive status at discharge: cognitively intact, Behavioral status at discharge: cooperative, Functional status at discharge: independent ambulation Overall status at discharge: patient is back to baseline Quality Metrics Clinical Quality Measures During this hospital stay, did patient experience: None Coding Level of Care Code Acute Pack Master for Chg Fwd Diagnoses Intractable nausea and vomiting R11.2 Acute renal failure N17.9 Acute renal failure type: unspecified Hypertensive urgency I16.0 Diabetes E11.65 Diabetes mellitus complication status: with hyperglycemia Diabetes mellitus intermediate manager insulin use: without intermediate manager use Diabetes mellitus type: type 2 CHF (congestive heart failure) I50.32 Heart failure chronicity: chronic Heart failure type: diastolic Hyperlipidemia E78.5 Hyperlipidemia type: unspecified CKD (chronic kidney disease) N18.3 Chronic kidney disease stage: stage 3 (moderate) Sleep apnea G47.33 Sleep apnea type: obstructive Diastolic heart failure I50.30
[2020-03-10 13:15] VITALS: BP 186/78; PULSE 100; RESP 18; TEMP 36.4; O2SAT 96
[2020-03-10 14:21] VITALS: BP 186/78; PULSE 100; RESP 18; TEMP 36.4; O2SAT 96
--- NOTE | 2020-03-10 14:50 | PC.NURSE ---
DC to home. IV DC'd cath intact bleeding controlled with 2x2's and coban, New medications delivered by [facility], Pill splitter given, DC instructions given, patient voiced full understanding, patient to main entrance via wheelchair to private vehicle with no difficulties.
== END 2020-03-10 14:50 | disposition home or self-care (01) | DRG 292 ==
LOC: ER 18:18 → MEDSURG 03-07 02:16
PROVIDERS: Family Medicine; Admitting Provider Hospitalist; Family Provider Family Medicine; PCP Family Medicine; Visit Provider Student in an Organized Health Care Education/Training Program
DX: I13.0 Hypertensive heart and chronic kidney disease with heart failure and stage 1 through stage 4 chronic kidney disease, or unspecified chronic kidney disease (principal); I50.32 Chronic diastolic (congestive) heart failure; N17.9 Acute kidney failure, unspecified; N18.3 Chronic kidney disease, stage 3 (moderate); E11.65 Type 2 diabetes mellitus with hyperglycemia; E11.22 Type 2 diabetes mellitus with diabetic chronic kidney disease; I16.0 Hypertensive urgency; G47.33 Obstructive sleep apnea (adult) (pediatric); E78.5 Hyperlipidemia, unspecified; F32.9 Major depressive disorder, single episode, unspecified; H35.30 Unspecified macular degeneration
CPT/HCPCS: 12345; 36415; 36416; 36600; 51702; 70450; 71045; 74176; 76770; 76857; 80053; 80061; 81001; 81003; 82009; 82436; 82550; 82553; 82570; 82803; 82962; 83036; 83605; 83690; 83735; 83880; 84100; 84133; 84300; 84443; 84484; 85025; 85610; 85651; 85730; 85999; 86140; 87040; 87086; 93005; 93308; 96372; 96375; 99284; J0360; J1650; J1815 ×2; J1940; J2405; J2550; J3490; J7030; J8498; Q9967

== ENCOUNTER → 2021-01-03 11:35 | Outpatient (BNVA) | payer MEDICARE, OTHER, SELFPAY | PROVIDERS: Family Provider Family Medicine; PCP Family Medicine; Visit Provider Family Medicine | DX: E78.5 Hyperlipidemia, unspecified (principal); I10 Essential (primary) hypertension; E11.65 Type 2 diabetes mellitus with hyperglycemia; I50.30 Unspecified diastolic (congestive) heart failure | CPT/HCPCS: 83036; 85025 ==

== ENCOUNTER → 2021-01-11 15:20 | Outpatient (BNVA) | payer MEDICARE, OTHER, SELFPAY | PROVIDERS: Family Provider Family Medicine; PCP Family Medicine; Visit Provider Family Medicine | DX: E11.65 Type 2 diabetes mellitus with hyperglycemia (principal); E78.5 Hyperlipidemia, unspecified; I10 Essential (primary) hypertension; I50.30 Unspecified diastolic (congestive) heart failure | CPT/HCPCS: 80053; 80061 ==

== ENCOUNTER → 2021-10-26 16:59 | Outpatient (BNVA) | payer MEDICARE, OTHER, SELFPAY | PROVIDERS: Family Provider Family Medicine; PCP Family Medicine; Visit Provider Family Medicine | DX: E11.65 Type 2 diabetes mellitus with hyperglycemia (principal); E78.5 Hyperlipidemia, unspecified; F32.9 Major depressive disorder, single episode, unspecified; I10 Essential (primary) hypertension | CPT/HCPCS: 80053; 80061; 83036; 84443; 85025 ==

== ENCOUNTER → 2022-02-14 18:23 | Outpatient (BNVA) | payer MEDICARE, OTHER, SELFPAY | PROVIDERS: Family Provider Family Medicine; PCP Family Medicine; Visit Provider Family Medicine | DX: R05.9 Cough, unspecified (principal); J06.9 Acute upper respiratory infection, unspecified | CPT/HCPCS: 71046; 87635 ==

== ENCOUNTER 2022-06-06 14:16 | Inpatient (IN) | payer MEDICARE, OTHER, SELFPAY ==
[2022-06-06] VITALS (8 sets, daily range): BP systolic 138–169; BP diastolic 62–111; PULSE 75–88; RESP 18–20; TEMP 36.3–36.7; O2SAT 90–93; BMI 38.7
--- NOTE | 2022-06-06 14:24 | W.ED.EXTPRO ---
HPI - Extremity Problem General: Chief complaint: Extremity Injury, Lower Stated complaint: Open Ankle Fracture Time Seen by Provider: 06/06/22 14:19 Source: patient Mode of arrival: EMS History of Present Illness: 71-year-old female arrives emergency room via EMS after a fall while getting out of the bathtub. The left ankle is splinted with a stirrup splint and a posterior splint secured with Covan. Per EMS report there is protruding bone and is an open fracture. There is no active bleeding. Patient denies striking head or loss consciousness her last meal was around 11 AM she does not take any anticoagulants. MD Complaint: joint swelling and joint pain Onset (ago): minute(s) Pain Consistency: constant Location: left (Ankle) Quality: sharp Relieving factors: nothing Exacerbating factors: palpation Associated symptoms: Deny chest pain, fever(s), myalgias, rash or short of breath Review of Systems Const: Denies: fever(s) ENMT: Denies: throat pain, ear or mastoid pain, nasal discharge or nasal congestion Card: Denies: chest pain Resp: Denies: dyspnea, productive cough or non-productive cough GI: Denies: abdominal pain, nausea, vomiting, hematemesis, coffee ground emesis, diarrhea, constipation, bloating, hematochezia or melena : Denies: flank pain, difficulty voiding, dysuria, urinary frequency or urinary urgency Skin/Breast: Denies: rash PFSH ED PFSH: Medical History (Updated 06/06/22 @ 16:30 by Driss Flood DO) CKD (chronic kidney disease) Depression Diabetes Diastolic heart failure Echo done February 2020 shows an EF of 60% with grade 1 diastolic dysfunction. Hyperlipidemia Hypertension Kidney malignancy froze off 5 yrs ago Macular degeneration getting shots in eye Sleep apnea no cpap due to intolerance Surgical History History of back surgery History of eye surgery History of hysterectomy Family History Mother Diabetes Chronic kidney disease (CKD) Other Cancer Denies family history of CAD (coronary artery disease) Social History Smoking and tobacco status: never smoked Alcohol intake: never Marital status: History of recent travel: No Procedures Orthopedic Fracture Reduction Fracture #1: Time Out Performed: Yes Side: left Fracture Reduction Location: other Analgesia: procedural sedation Technique: direct manipulation Post Reduction X-rays Demonstrate: anatomical reduction Post-reduction neuro exam: intact Post-reduction vascular exam: intact Splint Applied: Yes Patient Tolerated Procedure: well Procedural Sedation Indication: fracture/dislocation reduction Preparation: space sciences director applied, pulse oximeter, capnometry used, supplemental O2 applied, suction/airway equipment at bedside and IV secured IV Etomidate dose (mg): 10 Patient Tolerated Procedure: other (Mild hypopnea and hypoventilation corrected with airway repositioning nasopharyngeal airway and nonrebreather mask) Complications: hypoventilation Interventions: oxygen applied (Nonrebreather mask), airway repositioned and other (Nasopharyngeal airway) Course Vital Signs: Vital signs: Vital Signs Temperature 97.3 F L 06/06/22 14:24 Pulse Rate 88 06/06/22 15:21 Respiratory Rate 20 H 06/06/22 15:21 Blood Pressure 169/111 06/06/22 15:36 Pulse Oximetry 92 06/06/22 14:24 Oxygen Delivery Me thod 06/06/22 15:21 Oxygen Flow Rate 2 06/06/22 14:24 MDM - Extremity (Nontraumatic) Medical Decision Making Trimalleolar fracture significant dislocation reduced under conscious sedation patient tolerated well and was splinted. Will admit for unstable fracture with end-stage renal disease. There initially was concerned there was an open fracture however during reduction while the patient was under sedation examined the area of concern is superficial abrasion does not protrude any bone and there is no evidence that it was ever full-thickness. Patient did receive Ancef in the field via EMS. Discussed with hospitalist and with Dr. Urban on-call for podiatry. Medical Records I reviewed the patient's medical records. Lab Data I reviewed the patient's lab results. : 06/06/22 14:31 06/06/22 14:31 Radiology Impressions Chest X-Ray 06/06/22 14:31 Impression: 1 Cardiomegaly with atherosclerosis. 2. Coarse interstitial markings throughout both lungs which may represent chronic interstitial lung disease. Tibia/Fibula X-Ray 06/06/22 14:31 Impression: Negative for fracture of the proximal two thirds of left tibia and fibula. Ankle X-Ray 06/06/22 15:54 IMPRESSION: 1. Significant improvement in alignment at the tibiotalar joint space. Trimalleolar fracture now nearly completely normally aligned. 2. Large amount of soft tissue edema. Laboratory Results WBC 4.3 10^3/uL (4.0-10.0) 06/06/22 14:31 RBC 3.40 10^6/uL (4.1-5.3) L 06/06/22 14:31 Hgb 10.2 g/dL (11.5-15.3) L 06/06/22 14:31 Hct 32.9 % (37.0-47.0) L 06/06/22 14:31 MCV 96.8 fl (81-99) 06/06/22 14: MCH 30.0 pg (28.0-34.0) 06/06/22 14: MCHC 31.0 g/dL (30.0-36.0) 06/06/22 14: RDW 16.1 % (12.1-15.1) H 06/06/22 14:31 Plt Count 160 10^3/cmm (130-400) 06/06/22 14:31 MPV 10.1 fL (7.4-10.4) 06/06/22 14:31 Neut % (Auto) 62.8 % 06/06/22 14:31 Lymph % (Auto) 14.3 % 06/06/22 14:31 [place] % (Auto) 16.4 % 06/06/22 14:31 Eos % (Auto) 2.1 % 06/06/22 14: Baso % (Auto) 0.2 % 06/06/22 14:31 Neut # (Auto) 2.67 10^3/uL (1.8-7.7) 06/06/22 14:31 Lymph # (Auto) 0.6 10^3/uL (0.8-4.8) L 06/06/22 14:31 [place] # (Auto) 0.7 10^3/uL (0.2-0.9) 06/06/22 14:31 Eos # (Auto) 0.1 10^3/uL (0.0-0.8) 06/06/22 14:31 Baso # (Auto) 0.0 10^3/uL (0.0-0.1) 06/06/22 14:31 Nucleated RBC % (auto) 0.9 % 06/06/22 14:31 Nucleated RBCs # 0.0 /100WBC 06/06/22 14:31 PT 14.20 SECONDS (12.1-14.9) 06/06/22 14:31 INR 1.06 (0.8-1.2) 06/06/22 14:31 APTT 30.3 SECONDS (23.9-36.7) 06/06/22 14:31 Sodium 132 mmol/L (136-145) L 06/06/22 14:31 Potassium 4.5 mmol/L (3.5-5.1) 06/06/22 14:31 Chloride 89 mmol/L (98-107) L 06/06/22 14:31 Carbon Dioxide 29 mmol/L (22-29) 06/06/22 14:31 Anion Gap 18.5 (5-19) 06/06/22 14:31 BUN 53 mg/dL (8-23) H 06/06/22 14:31 Creatinine 8.8 mg/dL (0.5-0.9) H* 06/06/22 14:31 GFR Calculation Not Reportable 06/06/22 14:31 Glucose 94 mg/dL (65-115) 06/06/22 14:31 Calculated Osmolality 288 mOsm/kg (285-295) 06/06/22 14:31 Calcium 9.4 mg/dL (8.5-10.5) 06/06/22 14:31 Total Bilirubin 0.3 mg/dL (0.15-1.2) 06/06/22 14:31 AST 13 U/L (0-32) 06/06/22 14:31 ALT 18 U/L (0-33) 06/06/22 14:31 Alkaline Phosphatase 45 U/L (35-105) 06/06/22 14:31 Total Protein 6.4 g/dL (6.6-8.7) L 06/06/22 14:31 Albumin 3.6 g/dL (3.5-5.2) 06/06/22 14:31 Globulin 2.8 g/dL (1.3-4.6) 06/06/22 14:31 Discharge Plan Discharge Patient Disposition: Admitted As Inpatient Clinical Impression: Closed trimalleolar fracture, Hypertension, Diabetes mellitus, End stage renal disease, Peritoneal dialysis status Condition: Stable Prescriptions: No Action acetaminophen 500 mg tablet 1,000 mg PO Q6H PRN (Reason: Pain) melatonin 3 mg capsule 12 mg PO BEDTIME (DME) Bed side commode with rails See Rx Instructions .Route .MEDSUPPLY Qty: 1 0RF Rx Instructions: As directed calcium acetate 667 mg tablet 1,334 mg PO TID Rx Instructions: take 2 capsules with meals and 1 capsule with snacks doxazosin 2 mg tablet 2 mg PO DAILY budesonide-formoterol [Symbicort] 160-4.5 mcg/actuation HFA aerosol inhaler 2 inh inhalation BID Qty: 10.2 0RF albuterol sulfate 90 mcg/actuation HFA aerosol inhaler 2 puff inhalation Q6H PRN (Reason: shortness of breath or wheezing) Qty: 8.5 0RF promethazine 25 mg tablet 25 mg PO Q6H PRN (Reason: Nausea) cholecalciferol (vitamin D3) 10 mcg (400 unit) tablet 10 mcg PO DAILY cyanocobalamin (vitamin B-12) 100 mcg tablet 100 mcg PO DAILY docusate sodium 100 mg capsule 100 mg PO BID lisinopril 20 mg tablet 40 mg PO DAILY furosemide [Lasix] 80 mg tablet 80 mg PO BID pantoprazole 40 mg tablet,delayed release (DR/EC) 40 mg PO DAILY Novolin R Regular U-100 Insuln 100 unit/mL solution 15 unit SUBCUT TID PRN (Reason: hyperglycemia) Qty: 20 3RF Rx Instructions: use sliding scale from 1-15 units as discussed Cecilia Fernandez U-300 Insulin 300 unit/mL (1.5 mL) insulin pen See Rx Instructions .ROUTE .COMPLEX Qty: 4.5 1RF Dose Instruction: inject 15 units SUBCUTANEOUSLY DAILY Rx Instructions: inject 15 units SUBCUTANEOUSLY DAILY cetirizine 10 mg tablet See Rx Instructions .ROUTE .COMPLEX Qty: 30 4RF Dose Instruction: TAKE 1/2 TABLET BY MOUTH DAILY As Needed FOR allergy symptoms Rx Instructions: TAKE 1/2 TABLET BY MOUTH DAILY As Needed FOR allergy symptoms ferrous sulfate [FeroSul] 325 mg (65 mg iron) tablet See Rx Instructions .ROUTE .COMPLEX Qty: 30 0RF Dose Instruction: take one tablet BY MOUTH DAILY with BREAKFAST Rx Instructions: take one tablet BY MOUTH DAILY with BREAKFAST carvedilol 12.5 mg tablet 25 mg PO BID venlafaxine 150 mg capsule,extended release 24hr 150 mg PO DAILY minoxidil 2.5 mg tablet 5 mg PO DAILY rosuvastatin 40 mg tablet 40 mg PO DAILY multivitamin Tablet 1 tab PO DAILY Zofran 8 mg Tablet 8 mg PO Q8H PRN (Reason: Nausea) Referrals: Liliana Sharp MD [Physician] - Mana Barragan MD [Primary Care Provider] - Patient Instructions: Opioid Safety, Pain Management Coding Level of Care Code ED Compressor Mechanic Bus for Mikhail Gaitan
--- NOTE | 2022-06-06 14:31 | XR_ITS ---
WS: [id number] Left leg including the tibia and fibula, AP and lateral views, 06/06/2022 Clinical Data: trauma Comparison: None. Findings: The proximal two thirds of the left tibia and fibula are included on the exam and there are no abnorm alities. The left knee is unremarkable. There are vascular calcifications. XR/XR tibia fibula LT 2V [id number] Impression: Negative for fracture of the proximal two thirds of left tibia and fibula.
--- NOTE | 2022-06-06 14:31 | XR_ITS ---
WS: [id number] Portable AP semiupright chest, 06/06/2022 Clinical Data: dyspnea/cough Comparison: PA chest, 02/14/2022. Findings: No nodules, masses or effusions are seen. The heart is slightly enlarged. The pulmonary vas cularity is not increased. No pneumonia or pneumothorax is seen. There are interstitial markings thro ughout both lungs which have not changed. There is an azygos lobe of the lung. The aortic arch shows calcification. XR/XR chest 1V portable [id number] Impression: 1 Cardiomegaly with atherosclerosis. 2. Coarse interstitial markings throughout both lungs which may represent chron ic interstitial lung disease.
--- NOTE | 2022-06-06 14:31 | XR_ITS ---
WS: [id number] Left ankle, 3 views, 06/06/2022 Clinical Data: trauma Comparison: None. Findings: There is a bimalleolar fracture with posterior dislocation of the talus and the left foot from the ti randy. There is minimal soft tissue swelling about the ankle. The talus and calcaneus are intact. XR/XR ankle LT min 3V* [id number] Impression: Bimalleolar fracture involving the distal left fibula and medial malleolus with posterior dislocation of the talus and the left foot.
[2022-06-06 14:39] LABS: Basophils % 0.2 %; Eosinophils # 0.1 10^3/uL (0.0-0.8); Eosinophils % 2.1 %; Hematocrit 32.9 % (37.0-47.0); Hemoglobin 10.2 g/dL (11.5-15.3); Lymphocytes # 0.6 10^3/uL (0.8-4.8); Lymphocytes % 14.3 %; Mean Corpuscular Volume 96.8 fl (81-99); Mean Platelet Volume 10.1 fL (7.4-10.4); Monocytes # 0.7 10^3/uL (0.2-0.9); Monocytes % 16.4 %; Neutrophils # 2.67 10^3/uL (1.8-7.7); Neutrophils % 62.8 %; Nucleated Red Blood Cells % 0.9 %; Platelet Count 160 10^3/cmm (130-400); Red Cell Distribution Width 16.1 % (12.1-15.1); White Blood Count 4.3 10^3/uL (4.0-10.0)
[2022-06-06 14:48] LABS: INR 1.06 (0.8-1.2)
[2022-06-06 14:49] LABS: Partial Thromboplastin Time 30.3 SECONDS (23.9-36.7)
[2022-06-06 15:02] LABS: Alanine Aminotransferase 18 U/L (0-33); Albumin Level 3.6 g/dL (3.5-5.2); Alkaline Phosphatase 45 U/L (35-105); Anion Gap 18.5 (5-19); Aspartate Amino Transferase 13 U/L (0-32); Blood Urea Nitrogen 53 mg/dL (8-23); Calcium 9.4 mg/dL (8.5-10.5); Carbon Dioxide 29 mmol/L (22-29); Chloride 89 mmol/L (98-107); Globulin 2.8 g/dL (1.3-4.6); Glucose 94 mg/dL (65-115); Osmolality Calculated 288 mOsm/kg (285-295); Potassium 4.5 mmol/L (3.5-5.1); Sodium 132 mmol/L (136-145); Total Bilirubin 0.3 mg/dL (0.15-1.2); Total Protein 6.4 g/dL (6.6-8.7)
--- NOTE | 2022-06-06 15:54 | XR_ITS ---
WS: [id number] LEFT ANKLE: 2 VIEW(S) TECHNIQUE: AP and lateral. HISTORY: POST REDUCTION COMPARISON: 06/06/2022 earlier the same day. Postreduction since the prior examination. There is now near normal alignment at the tibiotalar joint . Distal fibular fracture medial displacement of the apex has been reduced. Distal fibular oblique fr acture in the distal third. Transverse fracture through the medial malleolus. There is very minimal a symmetry of the ankle mortise now. Posterior malleolus fracture is nondisplaced. Mild displacement of an anterior tibial plafond fracture. There is an additional curvilinear bone fragment along the medi al tibial metaphysis. Enthesopathy distal Achilles tendon. XR/XR ankle LT 2V [id number] IMPRESSION: 1. Significant improvement in alignment at the tibiotalar joint space. Trimall eolar fracture now nearly completely normally aligned. 2. Large amount of soft tissue edema.
--- NOTE | 2022-06-06 16:45 | ED_ITS ---
HPI - Extremity Problem General: Chief complaint: Extremity Injury, Lower Stated complaint: Open Ankle Fracture Time Seen by Provider: 06/06/22 14:19 Source: patient Mode of arrival: EMS History of Present Illness: Pain Consistency: constant Location: left (Ankle) Quality: sharp Relieving factors: nothing Exacerbating factors: palpation PFSH ED PFSH: Medical History (Updated 06/06/22 @ 16:30 by Driss Flood DO) CKD (chronic kidney disease) Depression Diabetes Diastolic heart failure Echo done February 2020 shows an EF of 60% with grade 1 diastolic dysfunction. Hyperlipidemia Hypertension Kidney malignancy froze off 5 yrs ago Macular degeneration getting shots in eye Sleep apnea no cpap due to intolerance Surgical History History of back surgery History of eye surgery History of hysterectomy Family History Mother Diabetes Chronic kidney disease (CKD) Other Cancer Denies family history of CAD (coronary artery disease) Social History Smoking and tobacco status: never smoked Alcohol intake: never Marital status: History of recent travel: No Course Vital Signs: Vital signs: Vital Signs Temperature 97.3 F L 06/06/22 14:24 Pulse Rate 88 06/06/22 15:21 Respiratory Rate 20 H 06/06/22 15:21 Blood Pressure 169/111 06/06/22 15:36 Pulse Oximetry 92 06/06/22 14:24 Oxygen Delivery Me thod 06/06/22 15:21 Oxygen Flow Rate 2 06/06/22 14:24 MDM - Extremity (Nontraumatic) Lab Data : 06/06/22 14:31 06/06/22 14:31 Radiology Impressions Chest X-Ray 06/06/22 14:31 Impression: 1 Cardiomegaly with atherosclerosis. 2. Coarse interstitial markings throughout both lungs which may represent chronic interstitial lung disease. Tibia/Fibula X-Ray 06/06/22 14:31 Impression: Negative for fracture of the proximal two thirds of left tibia and fibula. Ankle X-Ray 06/06/22 15:54 IMPRESSION: 1. Significant improvement in alignment at the tibiotalar joint space. Trimalleolar fracture now nearly completely normally aligned. 2. Large amount of soft tissue edema. Laboratory Results WBC 4.3 10^3/uL (4.0-10.0) 06/06/22 14:31 RBC 3.40 10^6/uL (4.1-5.3) L 06/06/22 14:31 Hgb 10.2 g/dL (11.5-15.3) L 06/06/22 14:31 Hct 32.9 % (37.0-47.0) L 06/06/22 14:31 MCV 96.8 fl (81-99) 06/06/22 14:31 MCH 30.0 pg (28.0-34.0) 06/06/22 14: MCHC 31.0 g/dL (30.0-36.0) 06/06/22 14: RDW 16.1 % (12.1-15.1) H 06/06/22 14:31 Plt Count 160 10^3/cmm (130-400) 06/06/22 14:31 MPV 10.1 fL (7.4-10.4) 06/06/22 14:31 Neut % (Auto) 62.8 % 06/06/22 14:31 Lymph % (Auto) 14.3 % 06/06/22 14:31 Logan % (Auto) 16.4 % 06/06/22 14:31 Eos % (Auto) 2.1 % 06/06/22 14:31 Baso % (Auto) 0.2 % 06/06/22 14:31 Neut # (Auto) 2.67 10^3/uL (1.8-7.7) 06/06/22 14:31 Lymph # (Auto) 0.6 10^3/uL (0.8-4.8) L 06/06/22 14:31 Logan # (Auto) 0.7 10^3/uL (0.2-0.9) 06/06/22 14:31 Eos # (Auto) 0.1 10^3/uL (0.0-0.8) 06/06/22 14:31 Baso # (Auto) 0.0 10^3/uL (0.0-0.1) 06/06/22 14:31 Nucleated RBC % (auto) 0.9 % 06/06/22 14:31 Nucleated RBCs # 0.0 /100WBC 06/06/22 14:31 PT 14.20 SECONDS (12.1-14.9) 06/06/22 14:31 INR 1.06 (0.8-1.2) 06/06/22 14:31 APTT 30.3 SECONDS (23.9-36.7) 06/06/22 14:31 Sodium 132 mmol/L (136-145) L 06/06/22 14:31 Potassium 4.5 mmol/L (3.5-5.1) 06/06/22 14:31 Chloride 89 mmol/L (98-107) L 06/06/22 14:31 Carbon Dioxide 29 mmol/L (22-29) 06/06/22 14:31 Anion Gap 18.5 (5-19) 06/06/22 14:31 BUN 53 mg/dL (8-23) H 06/06/22 14:31 Creatinine 8.8 mg/dL (0.5-0.9) H* 06/06/22 14:31 GFR Calculation Not Reportable 06/06/22 14:31 Glucose 94 mg/dL (65-115) 06/06/22 14:31 Calculated Osmolality 288 mOsm/kg (285-295) 06/06/22 14:31 Calcium 9.4 mg/dL (8.5-10.5) 06/06/22 14:31 Total Bilirubin 0.3 mg/dL (0.15-1.2) 06/06/22 14:31 AST 13 U/L (0-32) 06/06/22 14:31 ALT 18 U/L (0-33) 06/06/22 14:31 Alkaline Phosphatase 45 U/L (35-105) 06/06/22 14:31 Total Protein 6.4 g/dL (6.6-8.7) L 06/06/22 14:31 Albumin 3.6 g/dL (3.5-5.2) 06/06/22 14:31 Globulin 2.8 g/dL (1.3-4.6) 06/06/22 14:31 Discharge Plan Discharge Patient Disposition: Admitted As Inpatient Clinical Impression: Closed trimalleolar fracture, Hypertension, Diabetes mellitus, End stage renal disease, Peritoneal dialysis status Condition: Stable Coding Level of Care Code ED 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
--- NOTE | 2022-06-06 16:48 | ECG_ITS ---
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 Measurements Intervals [place] Rate: 82 P: 26 GA: 233 QRS: 57 QRSD: 105 T: 51 QT: 400 QTc: 469 Interpretive Statements SINUS RHYTHM WITH FIRST DEGREE AV BLOCK Compared to ECG 03/07/2020 06:03:17 First degree AV block now present Sinus tachycardia no longer present Myocardial infarct finding no longer present Electronically Signed On 06-07-2022 12:54:53 CDT by Anu Amador M.D. [id number]
--- NOTE | 2022-06-06 16:57 | PM.CONSULT ---
Providers/Reason For Consult Consulting Physician/Specialty*: Heber Urban D.P.M. Reason for Consult*: Left ankle fracture Primary Care Provider: Mana Barragan MD History of Present Illness History of Present Illness Pleasant 71-year-old insulin-dependent diabetic female with end-stage renal disease presents with a closed displaced trimalleolar fracture, left ankle.? Patient being admitted to the hospital service, I was consulted for evaluation and management of the left ankle fracture.? Patient slipped getting out of the bathroom today, last ate at 11 AM.? Denies any other concomitant injuries.? She is accompanied by her .? Patient denies any subjective nausea, vomiting, fever, chills, shortness of breath or chest pain. Review of Systems General: Reports: 10 or more systems reviewed and unremarkable except in HPI and below Const: Denies: fever(s) or chills Card: Denies: chest pain or palpitations Resp: Denies: productive cough GI: Denies: abdominal pain, nausea or vomiting : Denies: flank pain Musc: Reports: extremity swelling, joint pain, joint stiffness, limited range of motion and deformity Skin/Breast: Reports: nail changes and change in hair; Denies: rash or sores Neuro: Reports: numbness in extremities, sensory changes and difficulty walking Psych: Denies: suicidal ideation King/Lymph: Denies: easy bruising Medications/Allergies Home Medications Medication Instructions Recorded Confirmed Last Taken Type acetaminophen 500 mg tablet 1,000 mg PO Q6H PRN Pain 04/20/20 06/06/22 Unknown History melatonin 3 mg capsule 12 mg PO BEDTIME 04/20/20 06/06/22 06/05/22 History Bed side commode with rails #1 ea 04/10/21 06/06/22 Unknown Rx insulin regular human 100 unit/mL 15 unit (0.15 mL) SUBCUT TID PRN 09/22/21 06/06/22 06/06/22 Rx injection solution (Novolin R hyperglycemia #20 mL Regular U-100 Insulin) insulin glargine U-300 conc 300 See Rx Instructions .Route 01/08/22 06/06/22 06/06/22 Rx unit/mL (1.5 mL) subcutaneous pen .COMPLEX #4.5 mL (Toujeo SoloStar U-300 Insulin) cetirizine 10 mg tablet See Rx Instructions .Route 01/24/22 06/06/22 06/06/22 Rx .COMPLEX #30 tabs albuterol sulfate 90 mcg/actuation 2 puff inhalation Q6H PRN 02/14/22 06/06/22 Unknown Rx aerosol inhaler shortness of breath or wheezing #8.5 grams budesonide-formoterol HFA 160 2 inh inhalation BID #10.2 grams 02/14/22 06/06/22 06/06/22 Rx mcg-4.5 mcg/actuation aerosol inhaler (Symbicort) calcium acetate 667 mg tablet 1,334 mg PO TID 02/14/22 06/06/22 06/06/22 History doxazosin 2 mg tablet 2 mg PO DAILY 02/14/22 06/06/22 06/06/22 History cholecalciferol (vitamin D3) 10 10 mcg PO DAILY 04/05/22 06/06/22 06/06/22 History mcg (400 unit) tablet cyanocobalamin (vitamin B-12) 100 100 mcg PO DAILY 04/05/22 06/06/22 06/06/22 History mcg tablet docusate sodium 100 mg capsule 100 mg PO BID 04/05/22 06/06/22 06/06/22 History furosemide 80 mg tablet (Lasix) 80 mg PO BID 04/05/22 06/06/22 06/06/22 History lisinopril 20 mg tablet 40 mg PO DAILY 04/05/22 06/06/22 06/06/22 History pantoprazole 40 mg tablet,delayed 40 mg PO DAILY 04/05/22 06/06/22 06/06/22 History release promethazine 25 mg tablet 25 mg PO Q6H PRN Nausea 04/05/22 06/06/22 Unknown History ferrous sulfate 325 mg (65 mg See Rx Instructions .Route 05/10/22 06/06/22 06/06/22 Rx iron) tablet (FeroSul) .COMPLEX #30 tabs carvedilol 12.5 mg tablet 25 mg PO BID 06/06/22 06/06/22 06/06/22 History minoxidil 2.5 mg tablet 5 mg PO DAILY 06/06/22 06/06/22 06/06/22 History multivitamin 1 tab PO DAILY 06/06/22 06/06/22 06/06/22 History ondansetron HCl 8 mg tablet 8 mg PO Q8H PRN Nausea 06/06/22 06/06/22 Unknown History rosuvastatin 40 mg tablet 40 mg PO DAILY 06/06/22 06/06/22 06/05/22 History venlafaxine 150 mg 150 mg PO DAILY 06/06/22 06/06/22 06/05/22 History capsule,extended release 24 hr Allergies Allergy/AdvReac Type Severity Reaction Status Date / Time gabapentin Allergy Severe shaking, Verified 05/08/22 14:45 weakness, nifedipine [From Procardia] Allergy Unknown Verified 04/05/22 14:49 propoxyphene Allergy Unknown Verified 04/05/22 14:49 [From Darvocet-N] codeine AdvReac Unknown Verified 04/05/22 14:49 metformin AdvReac ADR-Nausea Verified 04/05/22 14:49 PFSH Acute PFSH: Medical History (Updated 06/06/22 @ 16:59 by Heber Urban DPM) CKD (chronic kidney disease) Depression Diabetes Diastolic heart failure Echo done February 2020 shows an EF of 60% with grade 1 diastolic dysfunction. Hyperlipidemia Hypertension Kidney malignancy froze off 5 yrs ago Macular degeneration getting shots in eye Sleep apnea no cpap due to intolerance Surgical History History of back surgery History of eye surgery History of hysterectomy Family History Mother Diabetes Chronic kidney disease (CKD) Other Cancer Denies family history of CAD (coronary artery disease) Social History Smoking and tobacco status: never smoked Alcohol intake: never Marital status: History of recent travel: No Vitals/I&O/Wt Last Vital Signs Temp 97.3 F L 06/06/22 14:24 Pulse 88 06/06/22 15:21 Resp 20 H 06/06/22 15:21 BP 169/111 06/06/22 15:36 Pulse Ox 92 06/06/22 14:24 O2 Del Method 06/06/22 15:21 O2 Flow Rate 2 06/06/22 14:24 Weight last 48 hrs Weight 240 lb Physical Exam Narrative: GENERAL: Patient is alert and oriented ?3 and in no acute distress.? The following is a focused bilateral lower extremity exam. VASCULAR: Dorsalis pedis palpable, posterior tibial arteries palpable.? Capillary refill time brisk to the distal hallux bilaterally. Calf is supple and nontender proximally and distally.? Edema to the left ankle. NEUROLOGICAL: Protective sensation intact to light touch. DERMATOLOGICAL: Superficial abrasion to the left anterior medial ankle.? No full-thickness wounds, no erythema, warmth, drainage, no fracture blisters or lacerations. MUSCULOSKELETAL: Pain to palpation at the left ankle medially and laterally.? No pain to palpation at the left forefoot.? Post reduction there is no gross deformity or acute dislocation appreciated to the left ankle.? Able to wiggle toes on command. Data : 06/06/22 14:31 06/06/22 14:31 A&P Assessment and plan (1) Closed left trimalleolar fracture: (2) Fall in bathtub: (3) Peritoneal dialysis status: (4) Diabetes mellitus: Plan 71-year-old insulin-dependent diabetic female with end-stage renal disease presents with closed dislocated left trimalleolar fracture underwent near anatomic reduction under sedation in the emergency department currently splinted. Patient to remain strict nonweightbearing to the left lower extremity Elevate left lower extremity above the level of the hip Prophylactic anticoagulants per hospitalist I will round on the patient daily during this hospitalization and evaluate soft tissue envelope, pending soft tissue envelope would like to proceed with planning on ORIF left trimalleolar fracture pending medical clearance. 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
[2022-06-06] MEDS: fentaNYL 50 mcg/mL INJ 2mL IVP (17:37)
--- NOTE | 2022-06-06 17:39 | PM.HP ---
Providers/Chief Complaint Primary Care Provider: Mana Barragan MD Chief Complaint: Open Ankle Fracture History of Present Illness Hailey Vaqsuez is a 71-year-old female with history of ESRD on peritoneal dialysis, depression, diabetes, diastolic heart failure, hyperlipidemia, hypertension, renal malignancy, macular degeneration, sleep apnea not compliant with CPAP presented to the ER today after having a fall. Patient states he tripped and she fell. She said she was getting out of the bathtub and the floor was slippery and she had a mechanical fall. She denied feeling dizzy or lightheaded prior to the fall however her family states that apparently at that time she did complain of some dizziness. They state that she is currently having some of her medications adjusted as an outpatient but cannot give me details as to which ones. Family states that she does fall sometimes with the most recent fall behavior. Prior to this 1. Diabetes Physician denies chest pain, shortness of breath, abdominal pain, nausea, vomiting, diarrhea. Is at baseline with all her other chronic medical issues. ED course: On arrival blood pressure 169/111, respiratory 20, respiratory rate 20, pulse 88, temperature 97.3, on 2 L nasal cannula. X-ray ankle showed trimalleolar fracture significant dislocation. This was reduced under conscious sedation. Patient tolerated well and was splinted. Initially there was concern for open fracture however during reduction while the patient was under sedation. Was examined which showed superficial abrasions which does not preclude any bone and there is no evidence that it was ever full-thickness. Patient did receive ceftriaxone in the field via EMS. Hospitalist called to admit patient. Dr. Urban from podiatry will operate. Chest X-Ray 06/06/22 14:31 Impression: 1 Cardiomegaly with atherosclerosis. 2. Coarse interstitial markings throughout both lungs which may represent chronic interstitial lung disease. Tibia/Fibula X-Ray 06/06/22 14:31 Impression: Negative for fracture of the proximal two thirds of left tibia and fibula. Ankle X-Ray 06/06/22 15:54 IMPRESSION: 1. Significant improvement in alignment at the tibiotalar joint space. Trimalleolar fracture now nearly completely normally aligned. 2. Large amount of soft tissue edema. Labs showed hemoglobin 10.2, WBC 4.3, INR 1.06, sodium 132, potassium 4.5, BUN 53, creatinine 8.8. Medications/Allergies Home Medications Medication Instructions Recorded Confirmed Last Taken Type acetaminophen 500 mg tablet 1,000 mg PO Q6H PRN Pain 04/20/20 06/06/22 Unknown History melatonin 3 mg capsule 12 mg PO BEDTIME 04/20/20 06/06/22 06/05/22 History Bed side commode with rails #1 ea 04/10/21 06/06/22 Unknown Rx insulin regular human 100 unit/mL 15 unit (0.15 mL) SUBCUT TID PRN 09/22/21 06/06/22 06/06/22 Rx injection solution (Novolin R hyperglycemia #20 mL Regular U-100 Insulin) insulin glargine U-300 conc 300 See Rx Instructions .Route 01/08/22 06/06/22 06/06/22 Rx unit/mL (1.5 mL) subcutaneous pen .COMPLEX #4.5 mL (Toujeo SoloStar U-300 Insulin) cetirizine 10 mg tablet See Rx Instructions .Route 01/24/22 06/06/22 06/06/22 Rx .COMPLEX #30 tabs albuterol sulfate 90 mcg/actuation 2 puff inhalation Q6H PRN 02/14/22 06/06/22 Unknown Rx aerosol inhaler shortness of breath or wheezing #8.5 grams budesonide-formoterol HFA 160 2 inh inhalation BID #10.2 grams 02/14/22 06/06/22 06/06/22 Rx mcg-4.5 mcg/actuation aerosol inhaler (Symbicort) calcium acetate 667 mg tablet 1,334 mg PO TID 02/14/22 06/06/22 06/06/22 History doxazosin 2 mg tablet 2 mg PO DAILY 02/14/22 06/06/22 06/06/22 History cholecalciferol (vitamin D3) 10 10 mcg PO DAILY 04/05/22 06/06/22 06/06/22 History mcg (400 unit) tablet cyanocobalamin (vitamin B-12) 100 100 mcg PO DAILY 04/05/22 06/06/22 06/06/22 History mcg tablet docusate sodium 100 mg capsule 100 mg PO BID 04/05/22 06/06/22 06/06/22 History furosemide 80 mg tablet (Lasix) 80 mg PO BID 0806/06/22 06/06/22 History lisinopril 20 mg tablet 40 mg PO DAILY 04/05/22 06/06/22 06/06/22 History pantoprazole 40 mg tablet,delayed 40 mg PO DAILY 04/05/22 06/06/22 06/06/22 History release promethazine 25 mg tablet 25 mg PO Q6H PRN Nausea 04/05/22 06/06/22 Unknown History ferrous sulfate 325 mg (65 mg See Rx Instructions .Route 05/10/22 06/06/22 06/06/22 Rx iron) tablet (FeroSul) .COMPLEX #30 tabs carvedilol 12.5 mg tablet 25 mg PO BID 06/06/22 06/06/22 06/06/22 History minoxidil 2.5 mg tablet 5 mg PO DAILY 06/06/22 06/06/22 06/06/22 History multivitamin 1 tab PO DAILY 06/06/22 06/06/22 06/06/22 History ondansetron HCl 8 mg tablet 8 mg PO Q8H PRN Nausea 06/06/22 06/06/22 Unknown History rosuvastatin 40 mg tablet 40 mg PO DAILY 06/06/22 06/06/22 06/05/22 History venlafaxine 150 mg 150 mg PO DAILY 06/06/22 06/06/22 06/05/22 History capsule,extended release 24 hr Allergies Allergy/AdvReac Type Severity Reaction Status Date / Time gabapentin Allergy Severe shaking, Verified 05/08/22 14:45 weakness, nifedipine [From Procardia] Allergy Unknown Verified 04/05/22 14:49 propoxyphene Allergy Unknown Verified 04/05/22 14:49 [From Darvocet-N] codeine AdvReac Unknown Verified 04/05/22 14:49 metformin AdvReac ADR-Nausea Verified 04/05/22 14:49 PFSH Acute PFSH: Medical History (Updated 06/06/22 @ 21:23 by Sylvia Villeda MD) CKD (chronic kidney disease) Depression Diabetes Diastolic heart failure Echo done February 2020 shows an EF of 60% with grade 1 diastolic dysfunction. Hyperlipidemia Hypertension Kidney malignancy froze off 5 yrs ago Macular degeneration getting shots in eye Sleep apnea no cpap due to intolerance Surgical History History of back surgery History of eye surgery History of hysterectomy Family History Mother Diabetes Chronic kidney disease (CKD) Other Cancer Denies family history of CAD (coronary artery disease) Social History Smoking and tobacco status: never smoked Alcohol intake: never Marital status: History of recent travel: No Vitals/I&O/Wt Last Vital Signs Temp 97.3 F L 06/06/22 14:24 Pulse 88 06/06/22 15:21 Resp 20 H 06/06/22 15:21 BP 169/111 06/06/22 15:36 Pulse Ox 92 06/06/22 14:24 O2 Del Method 06/06/22 15:21 O2 Flow Rate 2 06/06/22 14:24 Weight last 48 hrs Weight 108.862 kg Physical Exam Narrative: General: Alert oriented x3, patient seen laying in bed appearing comfortable at this time in ER bed 11. Breathing 2 L nasal cannula which is her baseline. Family present at bedside. HEENT: Normocephalic, atraumatic, EOMI, Cardio: Regular rate rhythm, normal S1-S2, Respiratory: Clear to auscultation bilaterally no wheezes no rhonchi no crackles at bases. GI: Abdomen soft, nontender, nondistended, bowel sounds +, abdominal obesity, dialysis catheter in place Behavior: Appropriate and cooperative Extremities: Trace generalized lower extremity edema bilaterally, left lower extremity wrapped with Gt Band-Aid and splinted. Data : 06/06/22 14:31 06/06/22 14:31 A&P Assessment and plan (1) Fall in bathtub: (2) Closed left trimalleolar fracture: (3) Hypertension: (4) Diabetes mellitus: (5) End stage renal disease: (6) Peritoneal dialysis status: (7) Diastolic heart failure: (8) Hypertension: Qualifiers: Hypertension type: essential hypertension Qualified Code(s): I10 - Essential (primary) hypertension (9) Hyperlipidemia: Qualifiers: Hyperlipidemia type: unspecified Qualified Code(s): E78.5 - Hyperlipidemia, unspecified (10) CKD (chronic kidney disease): Qualifiers: Chronic kidney disease stage: stage 3 (moderate) Qualified Code(s): N18.3 - Chronic kidney disease, stage 3 (moderate) (11) Sleep apnea: Qualifiers: Sleep apnea type: obstructive Qualified Code(s): G47.33 - Obstructive sleep apnea (adult) (pediatric) (12) Oxygen dependent: Plan #Trimalleolar ankle fracture #Status post fall, mechanical #Diabetes mellitus type 2 #Obstructive sleep apnea, noncompliant with CPAP due to intolerance #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 She tripped and fell as floor was slippery. Presented with unstable ankle fracture. It was reduced in the ER with conscious sedation and splinted. ? Podiatry to evaluate patient and patient to go for surgery. Consult pending. Briefly discussed with Dr. Urban. Patient will need special hardware for percutaneous ORIF. Recommend to elevate leg above hip. We will go for surgical intervention on Saturday. Podiatry will continue to follow. -Strictly nonweightbearing on left lower extremity. ? Check BNP, echo preop clearance. EKG did not reveal any acute ischemic changes ? Chest x-ray unremarkable except mild cardiomegaly ? Sliding scale insulin moderate intensity ? Continue home Lantus ? Continue all home medications ? Placed on renal diet -Consult nephrology for continuation of peritoneal dialysis. Full code DVT prophylaxis: Heparin SQ twice daily Attestations Medical Necessity Statement*: Patient will require inpatient status greater than 2 midnight for management of unstable ankle fracture. Surgical intervention to take place on 06/08/2022. Patient is currently nonweightbearing.. 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
[2022-06-06 18:06] LABS: Estmated Average Glucose 117; Hemoglobin A1C 5.7 % (4.0-6.0)
[2022-06-06 18:31] LABS: Procalcitonin 0.39 ng/mL (0-0.5)
--- NOTE | 2022-06-06 18:39 | P.CONIM_ITS ---
Providers/Reason For Consult Consulting Physician/Specialty*: Catalina Meadows DO, telenephrology Reason for Consult*: ESRD on peritoneal dialysis Requesting Physician: Sylvia Villeda MD Attending Physician: Sylvia Villeda MD Primary Care Provider: Mana Barragan MD History of Present Illness History of Present Illness Hailey Vasquez is a 71 year old female , fell getting into bathtub and fractured ankle. History obtained from Hailey's . She could not hear my questions. ESRD on CCPD, 12 L 1.5%/11hr overnight on cycler. Icodextrin during day. 2.5% added if weight increased PD fluid is clear, no exit site issues Gets epogen weekly at home Medications/Allergies Home Medications Medication Instructions Recorded Confirmed Last Taken Type acetaminophen 500 mg tablet 1,000 mg PO Q6H PRN Pain 04/20/20 06/06/22 Unknown History melatonin 3 mg capsule 12 mg PO BEDTIME 04/20/20 06/06/22 06/05/22 History Bed side commode with rails #1 ea 04/10/21 06/06/22 Unknown Rx insulin regular human 100 unit/mL 15 unit (0.15 mL) SUBCUT TID PRN 09/22/21 06/06/22 06/06/22 Rx injection solution (Novolin R hyperglycemia #20 mL Regular U-100 Insulin) insulin glargine U-300 conc 300 See Rx Instructions .Route 01/08/22 06/06/22 06/06/22 Rx unit/mL (1.5 mL) subcutaneous pen .COMPLEX #4.5 mL (Toujeo SoloStar U-300 Insulin) cetirizine 10 mg tablet See Rx Instructions .Route 01/24/22 06/06/22 06/06/22 Rx .COMPLEX #30 tabs albuterol sulfate 90 mcg/actuation 2 puff inhalation Q6H PRN 02/14/22 06/06/22 Unknown Rx aerosol inhaler shortness of breath or wheezing #8.5 grams budesonide-formoterol HFA 160 2 inh inhalation BID #10.2 grams 02/14/22 06/06/22 06/06/22 Rx mcg-4.5 mcg/actuation aerosol inhaler (Symbicort) calcium acetate 667 mg tablet 1,334 mg PO TID 02/14/22 06/06/2222 History doxazosin 2 mg tablet 2 mg PO DAILY 02/14/22 06/06/22 06/06/22 History cholecalciferol (vitamin D3) 10 10 mcg PO DAILY 04/05/22 06/06/22 06/06/22 History mcg (400 unit) tablet cyanocobalamin (vitamin B-12) 100 100 mcg PO DAILY 04/05/22 06/06/22 06/06/22 History mcg tablet docusate sodium 100 mg capsule 100 mg PO BID 04/05/22 06/06/22 06/06/22 History furosemide 80 mg tablet (Lasix) 80 mg PO BID 04/05/22 06/06/22 06/06/22 History lisinopril 20 mg tablet 40 mg PO DAILY 04/05/22 06/06/22 06/06/22 History pantoprazole 40 mg tablet,delayed 40 mg PO DAILY 04/05/22 06/06/22 06/06/22 History release promethazine 25 mg tablet 25 mg PO Q6H PRN Nausea 04/05/22 06/06/22 Unknown History ferrous sulfate 325 mg (65 mg See Rx Instructions .Route 05/10/22 06/06/22 06/06/22 Rx iron) tablet (FeroSul) .COMPLEX #30 tabs carvedilol 12.5 mg tablet 25 mg PO BID 06/06/22 06/06/22 06/06/22 History minoxidil 2.5 mg tablet 5 mg PO DAILY 06/06/22 06/06/22 06/06/22 History multivitamin 1 tab PO DAILY 06/06/22 06/06/22 06/06/22 History ondansetron HCl 8 mg tablet 8 mg PO Q8H PRN Nausea 06/06/22 06/06/22 Unknown History rosuvastatin 40 mg tablet 40 mg PO DAILY 06/06/22 06/06/22 06/05/22 History venlafaxine 150 mg 150 mg PO DAILY 06/06/22 06/06/22 06/05/22 History capsule,extended release 24 hr Allergies Allergy/AdvReac Type Severity Reaction Status Date / Time gabapentin Allergy Severe shaking, Verified 05/08/22 14:45 weakness, nifedipine [From Procardia] Allergy Unknown Verified 04/05/22 14:49 propoxyphene Allergy Unknown Verified 04/05/22 14:49 [From Darvocet-N] codeine AdvReac Unknown Verified 04/05/22 14:49 metformin AdvReac ADR-Nausea Verified 04/05/22 14:49 PFSH Acute PFSH: Medical History CKD (chronic kidney disease) Depression Diabetes Diastolic heart failure Echo done February 2020 shows an EF of 60% with grade 1 diastolic dysfunction. Hyperlipidemia Hypertension Kidney malignancy froze off 5 yrs ago Macular degeneration getting shots in eye Sleep apnea no cpap due to intolerance Surgical History History of back surgery History of eye surgery History of hysterectomy Family History Mother Diabetes Chronic kidney disease (CKD) Other Cancer Denies family history of CAD (coronary artery disease) Social History Smoking and tobacco status: never smoked Alcohol intake: never Marital status: History of recent travel: No Vitals/I&O/Wt Last Vital Signs Temp 97.3 F L 06/06/22 14:24 Pulse 88 06/06/22 15:21 Resp 20 H 06/06/22 15:21 BP 169/111 06/06/22 15:36 Pulse Ox 92 06/06/22 14:24 O2 Del Method 06/06/22 15:21 O2 Flow Rate 2 06/06/22 14:24 Weight last 48 hrs Weight 108.862 kg Data : 06/06/22 14:31 06/06/22 14:31 Other Labs: HbA1C 5.7%, LFTs normal Micro: Microbiology 06/06/22 18:06 Blood Culture - Preliminary Blood SPECIMEN COLLECTED 06/06/22 18:10 Blood Culture - Preliminary Blood SPECIMEN COLLECTED A&P Assessment and plan (1) End stage renal disease: seen via telemedicine with assistance of RN at bedside Plan 1. ESRD on peritoneal dialysis 2. Ankle fracture 3. Hypertension 4. Diabetes 5. Mild hyponatremia 6. Anemia, continue weekly epogen, next dose tomorrow Rec: continue peritoneal dialysis, change to CAPD unless wants to bring in cycler and start and end treatments. gentamicin ointment to exit site after cleaning daily, continue outpatient diabetic and hypertensive medications. Consult Attestations Medical Necessity Statement: per primary service Time Spent in Patient Care: 16 - 35 minutes Coding Level of Care Code Acute Technical Sales Manager for Mikhail Gaitan Diagnoses End stage renal disease N18.6
[2022-06-06] MEDS: heparin 5,000 unit/mL INJ 1 mL 5000 UNIT SUBCUT (18:46)
[2022-06-06 18:54] LABS: NT Pro B Type Natriuretic Pept 35646 pg/mL (0-125)
[2022-06-06] MEDS: cefTRIAXone 1,000 MG in sodium chloride 0.9% (plus) 50 ML 100 MG IV (19:54)
[2022-06-06 20:43] LABS: Glucose Point of Care 86 mg/dL (70-110)
--- NOTE | 2022-06-06 21:06 | USCV_ITS ---
Hailey Vasquez Age: 71 Gender: F : 1950 Exam Date: 06/06/2022 21:51 Ordering Phys: Sylvia Villeda MD Technologist: CORNELIUS Exam Location: [facility] [place] Indication: pre-OP clearance for LEFT trimalleolar fx. No history of cardiac intervention per patient. BP: 159 / 77 HR: 81 Rhythm: Sinus Technical Quality: Adequate MEASUREMENTS (Male / Female) Normal Values 2D ECHO LV Diastolic Diameter PLAX 4.0 cm 4.2 - 5.9 / 3.9 - 5.3 cm LV Systolic Diameter PLAX 2.5 cm IVS Diastolic Thickness 1.2 cm 0.6 - 1.0 / 0.6 - 0.9 cm IVS Systolic Thickness 2.0 cm LVPW Diastolic Thickness 1.5 cm 0.6 - 1.0 / 0.6 - 0.9 cm LVPW Systolic Thickness 2.0 cm LVOT Diameter 2.1 cm LV Ejection Fraction 2D Teich 68.4 % LV Ejection Fraction MOD 2C 52.9 % LV Ejection Fraction 2C AL 54.7 % LA Diameter 4.9 cm LA Width 5.3 cm LA Height 6.8 cm RA Width 4.3 cm RA Height 4.1 cm Aorta at Sinotubular Diameter 2.5 cm IVC Diameter 1.3 cm M-MODE Aortic Annulus Diameter 3.4 cm LA Ao Ratio MM 1.5 MV E Point Septal Separation 0.4 cm DOPPLER AV Peak Velocity 134.0 cm/s LVOT Peak Velocity 192.0 cm/s AV Area Cont Eq vti 4.7 cm squared AV Area Cont Eq pk 4.9 cm squared MV Peak Velocity 251.0 cm/s MV Area PHT 3.1 cm squared Mitral E to A Ratio 0.9 MV E' Velocity 115.0 cm/s Mitral E to MV E' Ratio 25.3 Mitral E to LV E' Lateral Ratio 22.9 Mitral E to LV E' Septal Ratio 28.6 TR Peak Velocity 301.3 cm/s TR Peak Gradient 36.3 mmHg TV Peak E Velocity 81.0 cm/s Right Atrial Pressure 10.0 mmHg Pulmonary Artery Systolic Pressu 46.3 mmHg PV Peak Velocity 94.0 cm/s FINDINGS Left Ventricle Normal left ventricular size, systolic function and mildly increased wall thickness, with no regional wall motion abnormalities. Left ventricular ejection fraction is estimated at 65-70 %. Grade II diastolic dysfunction, moderately elevated filling pressures. Right Ventricle Normal right ventricular size and systolic function. Right ventricular systolic pressure 49 mmHg. Right Atrium Normal right atrial size. Left Atrium Moderately increased left atrial size. Mitral Valve Severe mitral annular calcification. Thickened mitral valve. Mild to moderate mitral valve stenosis with mean gradient 9 mm Hg. No mitral valve regurgitation. Aortic Valve Structurally normal trileaflet aortic valve. No aortic valve stenosis. Trace aortic valve regurgitation. Tricuspid Valve Structurally normal tricuspid valve. Trace tricuspid valve regurgitation. Pulmonic Valve Pulmonic valve not well visualized. No pulmonary valve stenosis. Trace pulmonary valve regurgitation. Pericardium No pericardial effusion. Aorta Normal size aortic root and proximal ascending aorta. IVC Normal IVC dimension with >50% respiratory change of the inferior vena cava. CONCLUSIONS 1. Normal left ventricular size, systolic function and mildly increased wall thickness, with no regional wall motion abnormalities. Left ventricular ejection fraction is estimated at 65-70 %. Grade II diastolic dysfunction, moderately elevated filling pressures. 2. Severe mitral annular calcification. Thickened mitral valve. Mild to moderate mitral valve stenosis with mean gradient 9 mm Hg. 3. Moderate pulmonary hypertension with pulmonary artery pressure estimated at 49 mm Hg. 4. Direct comparison to previous study dated 03/07/2020 is not possible due to techical differences in study Anu Amador MD (Electronically Signed) Final Date: 07 June 2022 14:36 S
[2022-06-06] MEDS: morphine 4 mg/mL SDV 1 mL IVP (21:29)
[2022-06-06] MEDS: carvedilol 25 mg Tablet PO (21:40)
[2022-06-06] MEDS: calcium acetate 667 mg Capsule 1334 MG PO (21:41)
[2022-06-06] MEDS: FUROsemide 40 mg Tablet 80 MG PO (21:41)
[2022-06-06] MEDS: docusate sodium 100 mg Capsule PO (21:41)
[2022-06-06] MEDS: sodium chloride 0.9% 1,000 ML 100 ML IV (21:42)
[2022-06-06] MEDS: Dianeal low Ca w/1.5% dex 2,000 mL Bag 2000 ML INTRAPERIT (22:10)
[2022-06-06 22:18] LABS: Add Urine Microscopic? YES; Bilirubin Urine Neg (Negative); Blood Urine 2+ (Negative); Glucose Urine UA 1+ (Normal); Ketones Urine Negative (Negative); Leukocyte Esterase Urine 2+ (Negative); Nitrate Urine Negative (Negative); Protein Urine 3+ (Negative); Urine Appearance Clear (CLEAR); Urine Color Yellow (Yellow); Urobilinogen Urine Norm (Negative); pH Urine 7 (5-7)
[2022-06-06 22:19] LABS: Add Urine Culture? Yes; Bacteria Urine 4+ /hpf; WBC Urine TOO NUMEROUS TO CNT /hpf (0-5)
[2022-06-06] MEDS: HYDROmorphone 1 mg/mL INJ 1 mL 0.5 MG IVP (23:20)
[2022-06-07] VITALS (10 sets, daily range): BP systolic 124–155; BP diastolic 69–78; PULSE 72–88; RESP 15–20; TEMP 35.7–36.9; O2SAT 91–96
[2022-06-07] MEDS: morphine 4 mg/mL SDV 1 mL IVP ×3 (01:29→07:53)
[2022-06-07] MEDS: promethazine 25 mg Tablet PO (01:30)
[2022-06-07 02:50] LABS: Basophils % 0.2 %; Eosinophils # 0.1 10^3/uL (0.0-0.8); Eosinophils % 1.6 %; Hematocrit 31.6 % (37.0-47.0); Hemoglobin 9.5 g/dL (11.5-15.3); Lymphocytes # 0.8 10^3/uL (0.8-4.8); Lymphocytes % 12.5 %; Mean Corpuscular HGB Conc 30.1 g/dL (30.0-36.0); Mean Corpuscular Hemoglobin 29.2 pg (28.0-34.0); Mean Corpuscular Volume 97.2 fl (81-99); Mean Platelet Volume 10.4 fL (7.4-10.4); Monocytes # 1.2 10^3/uL (0.2-0.9); Neutrophils # 4.15 10^3/uL (1.8-7.7); Neutrophils % 64.5 %; Nucleated Red Blood Cells % 0.3 %; Platelet Count 158 10^3/cmm (130-400); Red Blood Count 3.25 10^6/uL (4.1-5.3); Red Cell Distribution Width 16.3 % (12.1-15.1); White Blood Count 6.4 10^3/uL (4.0-10.0)
[2022-06-07 03:06] LABS: INR 1.11 (0.8-1.2)
[2022-06-07 03:16] LABS: Alanine Aminotransferase 17 U/L (0-33); Albumin Level 3.4 g/dL (3.5-5.2); Alkaline Phosphatase 42 U/L (35-105); Anion Gap 17.9 (5-19); Aspartate Amino Transferase 17 U/L (0-32); Blood Urea Nitrogen 44 mg/dL (8-23); Calcium 9.4 mg/dL (8.5-10.5); Carbon Dioxide 27 mmol/L (22-29); Chloride 91 mmol/L (98-107); Globulin 2.6 g/dL (1.3-4.6); Glucose 116 mg/dL (65-115); Magnesium 2.7 mg/dL (1.7-2.3); Osmolality Calculated 284 mOsm/kg (285-295); Potassium 4.9 mmol/L (3.5-5.1); Sodium 131 mmol/L (136-145); Total Bilirubin 0.3 mg/dL (0.15-1.2)
[2022-06-07] MEDS: Dianeal low Ca w/1.5% dex 2,000 mL Bag 2000 ML INTRAPERIT ×5 (03:33→19:55)
[2022-06-07] MEDS: heparin 5,000 unit/mL INJ 1 mL 5000 UNIT SUBCUT ×2 (05:53→17:03)
[2022-06-07] MEDS: sodium chloride 0.9% 1,000 ML 100 ML IV (05:53)
[2022-06-07 06:35] LABS: Glucose Point of Care 150 mg/dL (70-110)
[2022-06-07] MEDS: cefTRIAXone 1,000 MG in sodium chloride 0.9% (plus) 50 ML 100 MG IV (07:48)
--- NOTE | 2022-06-07 08:05 | PM.PN ---
Subjective Subjective: Patient seen bedside, pain is under control on [place] 5/325 mg every 4 hours scheduled. Planning on scheduled every 4 hours for 24. And then switching to as needed. Patient expressing some anxiety over her hospitalization and left ankle fracture needing a longer stay at the hospital or even potentially transferring to a [place] [facility] facility as her will be getting a pacemaker in the next 2 weeks and he is her primary caregiver. Patient denies any subjective nausea, vomiting, fever, chills, shortness of breath or chest pain. Vitals/I&O/Wt Last Vital Signs Temp 97.4 F L 06/07/22 04:00 Pulse 86 06/07/22 07:43 Resp 20 H 06/07/22 07:53 BP 143/69 06/07/22 07:18 Pulse Ox 96 06/07/22 07:43 O2 Del Method 06/07/22 07:43 O2 Flow Rate 3 06/07/22 07:43 06/06/22 06/07/22 06/07/22 22:59 06:59 14:59 Intake Total 50 / 50 5088.333 / 5138.333 Output Total 4560 / 4560 Balance 50 / 50 528.333 / 578.333 Weight last 48 hrs Weight 240 lb Physical Exam Narrative: GENERAL: Patient is alert and oriented ?3 and in no acute distress.? The following is a focused bilateral lower extremity exam. VASCULAR: Dorsalis pedis palpable, posterior tibial arteries palpable.? Capillary refill time brisk to the distal hallux bilaterally. Calf is supple and nontender proximally and distally.? Edema to the left ankle. NEUROLOGICAL: Protective sensation intact to light touch. DERMATOLOGICAL: Abrasion to the left anterior ankle limited to breakdown of skin. Serous fluid-filled fracture blister at the left medial malleolus, left anterior ankle and left lateral malleolus. Thin atrophic skin with shiny appearance has decreased texture and turgor, decreased elasticity. MUSCULOSKELETAL: Pain to palpation at the left ankle medially and laterally.? No pain to palpation at the left forefoot.? Post reduction there is no gross deformity or acute dislocation appreciated to the left ankle.? Able to wiggle toes on command. Urinary Catheter Management: Barreto: Cath Placed During This Visit: yes Reason for Continuing Indwelling Catheter: Other Urinary Catheter Date of Insertion: 06/06/22 Urinary Catheter Time of Insertion: 21:30 Data : 06/07/22 01:50 06/07/22 01:50 Micro: Microbiology 06/06/22 18:06 Blood Culture - Preliminary Blood SPECIMEN COLLECTED 06/06/22 18:10 Blood Culture - Preliminary Blood SPECIMEN COLLECTED A&P Assessment and plan (1) Closed left trimalleolar fracture: Qualifiers: Encounter type: subsequent encounter Fracture healing: with routine healing Qualified Code(s): S82.852D - Displaced trimalleolar fracture of left lower leg, subsequent encounter for closed fracture with routine healing (2) Fall in bathtub: (3) Peritoneal dialysis status: (4) Diabetes mellitus: (5) Blister over site of fracture of bone: Plan 71-year-old insulin-dependent diabetic female with end-stage renal disease presents with closed dislocated left trimalleolar fracture underwent near anatomic reduction under sedation in the emergency department currently splinted. Patient to remain strict nonweightbearing to the left lower extremity Elevate left lower extremity above the level of the hip Prophylactic anticoagulants per hospitalist Fracture blisters both medially, anteriorly and laterally at the left ankle. Discussed surgical options at this point due to soft tissue envelope. Discussed with staged traditional ORIF, allow adequate time for soft tissue envelope to improve and fracture blisters to resolve this may take 3 to 6 weeks. Also discussed proceeding with surgery during this hospitalization consisting of tibial talocalcaneal arthrodesis with intramedullary nail, would allow approach through the heel away from the poor soft tissue, downside being fixed arthrodesis in neutral position. Given patient's sedentary lifestyle, basically stands and basically stands and performs short transfers this would likely be her best option would allow immediate stabilization of the fracture and avoid compromise soft tissue putting her at increased risk for surgical site dehiscence and poor healing as well as wound infection. They would like to discuss this amongst family and decide tomorrow whether to proceed with IM nail versus staged traditional ORIF. Attestations Medical Necessity Statement*: Left trimalleolar fracture Coding Level of Care Code Acute Biomass Production Manager for Mikhail Fwjosselin Diagnoses Closed left trimalleolar fracture S82.852D Encounter type: subsequent encounter Fracture healing: with routine healing Fall in bathtub W18.2XXA Peritoneal dialysis status Z99.2 Diabetes mellitus E11.9 Blister over site of fracture of bone
--- NOTE | 2022-06-07 08:29 | PM.PN ---
Subjective Subjective: reports pain in left leg no issues with PD reports minimal urine output colbert was placed for urine specimen an in anticipation of surgery Vitals/I&O/Wt Last Vital Signs Temp 97.4 F L 06/07/22 04:00 Pulse 86 06/07/22 07:43 Resp 20 H 06/07/22 07:53 BP 143/69 06/07/22 07:18 Pulse Ox 96 06/07/22 07:43 O2 Del Method 06/07/22 07:43 O2 Flow Rate 3 06/07/22 07:43 06/06/22 06/07/22 06/07/22 22:59 06:59 14:59 Intake Total 50 / 50 5088.333 / 5138.333 Output Total 4560 / 4560 Balance 50 / 50 528.333 / 578.333 Weight last 48 hrs Weight 108.862 kg Physical Exam Const: COMMON NORMALS: alert GI: OTHER: Rn reports PD cath exit site no redness or drainage Extremity: NARRATIVE EXTREMITY EXAM: left leg wrapped knee to foot right leg no edema Neuro: SENSORIUM/ORIENTATION: Yes alert Urinary Catheter Management: Colbert: Cath Placed During This Visit: yes Reason for Continuing Indwelling Catheter: Other Urinary Catheter Date of Insertion: 06/06/22 Urinary Catheter Time of Insertion: 21:30 Data : 06/07/22 01:50 06/07/22 01:50 Other Labs: urine TNTC WBC Micro: Microbiology 06/06/22 18:06 Blood Culture - Preliminary Blood SPECIMEN COLLECTED 06/06/22 18:10 Blood Culture - Preliminary Blood SPECIMEN COLLECTED A&P Assessment and plan (1) End stage renal disease: seen via telemedicine with assistance of RN at bedside Plan 1. ESRD on peritoneal dialysis 2. UTI, on rocephin 3. Ankle fracture, possible surgery tomorrow 4. Hypertension, well-controlled 5. Diabetes 6. Mild hyponatremia, stable 7. Anemia, continue weekly epogen, dose today Rec: continue CAPD peritoneal dialysis, 1.5% Q4H, unless wants to bring in cycler and start and end treatments. Drain PD fluid prior to OR gentamicin ointment to exit site after cleaning daily, continue outpatient diabetic and hypertensive medications. Discontinue IVF Attestations Medical Necessity Statement*: Per primary service Time Spent in Patient Care: 16 - 35 minutes Coding Level of Care Code Acute Manual Qa Tester for g Fwd Diagnoses End stage renal disease N18.6
--- NOTE | 2022-06-07 10:26 | PC.CHAP ---
Pastoral Care Encounter/Spiritual Assessment Type of Contact [] Declined international accountant visit [] Patient/Family/Request visit [] Outpatient visit [] Follow-up visit [] Physician referral [] Code/Alert [x] Routine visit [] Staff referral [] Actively dying [] Patient sleeping [] Family support [] [] Out of room [] Palliative care [] [x] Receiving care in room [] Pre-surgical visit [] Trauma [] Long length of stay [] ICU visit [] Other: Relational/Emotional Strength [x] Patient feels connected with others/family/visitors/staff [] Distress [] Loneliness/isolation [] Abandonment Spirituality of Patient [x] Person of Katie [] Attends [employer] of their Katie [x] Believes in Prayer [] Reads Bible or Protestant materials [] There are Spiritual issues to be addressed Pit Crane Operator Interventions [x] Prayer [x] Active listening [x] Non-anxious presence [x] Spiritual/emotional support [] Crisis/trauma care [x] Spiritual counseling [] Bereavement support [] Provided bereavement packet [] Provided Bible/devotional materials [] Provided toy/stuffed animal, coloring book to patient or family member [] Provided Communion [] Anointing/[place] [] Salvation [x] Completed spiritual assessment [] Other: Impact on Illness or Injury [] Angry [] Fearful [x] Anxious [] Often cries [] Exhaustion [] Unable to work [] Unable to attend orthodox [] Unable to walk/stand [] Unable to read [] Unable to drive [] Unable to eat/drink [] Unable to sleep [] Unable to be with family [] Patient intubated [] Other: Summary in pain ankle witing doctor to see what needs to be done has a good attitude well go home at some point Time spent with patient 10 mins
[2022-06-07] MEDS: epoetin alfa 1000 Unit/0.05 mL (ESRD) 20000 UNIT SUBCUT (11:24)
[2022-06-07] MEDS: calcium acetate 667 mg Capsule 1334 MG PO ×3 (11:24→19:54)
[2022-06-07] MEDS: atorvastatin 40 mg Tablet 80 MG PO (11:25)
[2022-06-07] MEDS: FUROsemide 40 mg Tablet 80 MG PO ×2 (11:26→17:03)
[2022-06-07] MEDS: venlafaxine ER (24HR) 150 mg Capsule PO (11:26)
[2022-06-07] MEDS: carvedilol 25 mg Tablet PO ×2 (11:26→17:03)
[2022-06-07] MEDS: pantoprazole DR 40 mg Tablet PO (11:26)
[2022-06-07] MEDS: docusate sodium 100 mg Capsule PO ×2 (11:27→17:03)
[2022-06-07] MEDS: HYDROcodone-acetaminophen 5-325 mg Tablet 1 TAB PO ×3 (11:27→19:54)
[2022-06-07 11:28] LABS: Glucose Point of Care 187 mg/dL (70-110)
[2022-06-07] MEDS: doxazosin 1 mg Tablet 2 MG PO (11:42)
[2022-06-07] MEDS: minoxidil 10 mg Tablet 5 MG PO (11:42)
--- NOTE | 2022-06-07 16:47 | P.PN_ITS ---
Subjective Subjective: seen this morning. pt states her ankle hurts she did receive morphine overnight for pain Vitals/I&O/Wt Last Vital Signs Temp 98.3 F 06/07/22 15:49 Pulse 78 06/07/22 15:49 Resp 16 06/07/22 15:49 BP 124/78 06/07/22 15:49 Pulse Ox 95 06/07/22 15:49 O2 Del Method 06/07/22 15:49 O2 Flow Rate 3 06/07/22 15:49 06/07/22 06/07/22 06/07/22 06:59 14:59 22:59 Intake Total 5088.333 / 5138.333 480 / 480 Output Total 4560 / 4560 Balance 528.333 / 578.333 480 / 480 Weight last 48 hrs Weight 108.862 kg Physical Exam Narrative: General: Alert oriented x3, NAD HEENT: Normocephalic, atraumatic, EOMI, Cardio: Regular rate rhythm, normal S1-S2, Respiratory: Clear to auscultation bilaterally no wheezes no rhonchi no crackles at bases. GI: Abdomen soft, nontender, nondistended, bowel sounds +, abdominal obesity, dialysis catheter in place, currently undergoing PD Behavior: Appropriate and cooperative Extremities: Trace generalized lower extremity edema bilaterally, left lower extremity wrapped with Gt Band-Aid and splinted. Urinary Catheter Management: Barreto: Cath Placed During This Visit: yes Reason for Continuing Indwelling Catheter: Other Urinary Catheter Date of Insertion: 06/06/22 Urinary Catheter Time of Insertion: 21:30 Data : 06/07/22 01:50 06/07/22 01:50 Micro: Microbiology 06/06/22 18:06 Blood Culture - Preliminary Blood SPECIMEN COLLECTED 06/06/22 18:10 Blood Culture - Preliminary Blood SPECIMEN COLLECTED A&P Assessment and plan (1) Fall in bathtub: (2) Closed left trimalleolar fracture: (3) Hypertension: (4) Diabetes mellitus: (5) End stage renal disease: (6) Peritoneal dialysis status: (7) Diastolic heart failure: (8) Hypertension: Qualifiers: Hypertension type: essential hypertension Qualified Code(s): I10 - Essential (primary) hypertension (9) Hyperlipidemia: Qualifiers: Hyperlipidemia type: unspecified Qualified Code(s): E78.5 - Hyperlipidemia, unspecified (10) CKD (chronic kidney disease): Qualifiers: Chronic kidney disease stage: stage 3 (moderate) Qualified Code(s): N18.3 - Chronic kidney disease, stage 3 (moderate) (11) Sleep apnea: Qualifiers: Sleep apnea type: obstructive Qualified Code(s): G47.33 - Obstructive sleep apnea (adult) (pediatric) (12) Oxygen dependent: Plan #Trimalleolar ankle fracture #Status post fall, mechanical #Diabetes mellitus type 2 #Obstructive sleep apnea, noncompliant with CPAP due to intolerance #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 She tripped and fell as floor was slippery. Presented with unstable ankle fracture. It was reduced in the ER with conscious sedation and splinted. ? Podiatry to evaluate patient and patient to go for surgery. Consult pending. Briefly discussed with Dr. Urban. Patient will need special hardware for percutaneous ORIF. Recommend to elevate leg above hip. -Strictly nonweightbearing on left lower extremity. ? EKG did not reveal any acute ischemic changes - Normal left ventricular size, systolic function and mildly ?increased wall thickness, with no regional wall motion ?abnormalities. Left ventricular ejection fraction is estimated ?at 65-70 %. Grade II diastolic dysfunction, moderately elevated ?filling pressures. Mild mitral stenosis . Moderate pulmonary hypertension present ? Chest x-ray unremarkable except mild cardiomegaly ? Sliding scale insulin moderate intensity ? Continue home Lantus ? Continue all home medications ? Placed on renal diet -Consult nephrology for continuation of peritoneal dialysis. Appreciate their help. - Patient has fracture blisters. Dr. Urban took down dressing today. Pt given option of ankle nail vs waiting for soft tissue edema to improve to operate at a later date vs in AM. Pt states she would like to think about further tx at this point and has not made a decision pt will need detention placement Full code DVT prophylaxis: Heparin SQ twice daily Attestations Medical Necessity Statement*: Patient will require inpatient status greater than 2 midnight for management of unstable ankle fracture. Potential Surgical intervention to take place on 06/08/2022. Patient is currently nonweightbearing.. Coding Level of Care Code Acute Medical Reimbursement Manager for Chg Fwd Diagnoses Fall in bathtub W18.2XXA Closed left trimalleolar fracture S82.852A Hypertension I10 Diabetes mellitus E11.9 End stage renal disease N18.6 Peritoneal dialysis status Z99.2 Diastolic heart failure I50.30 Hypertension I10 Hypertension type: essential hypertension Hyperlipidemia E78.5 Hyperlipidemia type: unspecified CKD (chronic kidney disease) N18.3 Chronic kidney disease stage: stage 3 (moderate) Sleep apnea G47.33 Sleep apnea type: obstructive Oxygen dependent Z99.81
[2022-06-07 16:56] LABS: Glucose Point of Care 185 mg/dL (70-110)
[2022-06-07] MEDS: insulin lispro 100 unit/1 mL SUBCUT ×2 (17:04→22:09)
[2022-06-07 21:15] LABS: Glucose Point of Care 160 mg/dL (70-110)
[2022-06-08] VITALS (8 sets, daily range): BP systolic 94–136; BP diastolic 41–82; PULSE 76–89; RESP 15–18; TEMP 36.6–37.5; O2SAT 93–99
[2022-06-08] MEDS: HYDROcodone-acetaminophen 5-325 mg Tablet 1 TAB PO ×6 (00:09→20:16)
[2022-06-08] MEDS: Dianeal low Ca w/1.5% dex 2,000 mL Bag 2000 ML INTRAPERIT ×4 (00:09→22:13)
--- NOTE | 2022-06-08 00:43 | PC.NURSE ---
Dr. Hudson notified of having 1700 out of PD after intake of 1999. Patient was repositioned and no occlusions observed in tubing. Ordered to continue with PD as ordered and notify banquet houseperson in AM.
[2022-06-08] MEDS: heparin 5,000 unit/mL INJ 1 mL 5000 UNIT SUBCUT ×2 (03:56→16:27)
[2022-06-08 06:25] LABS: Glucose Point of Care 100 mg/dL (70-110)
[2022-06-08] MEDS: cefTRIAXone 1,000 MG in sodium chloride 0.9% (plus) 50 ML 100 MG IV (08:23)
[2022-06-08] MEDS: calcium acetate 667 mg Capsule 1334 MG PO ×3 (08:23→20:16)
[2022-06-08] MEDS: ferrous sulfate EC 325 mg Tablet PO (08:24)
[2022-06-08] MEDS: docusate sodium 100 mg Capsule PO ×2 (08:24→18:22)
[2022-06-08] MEDS: doxazosin 1 mg Tablet 2 MG PO (08:24)
[2022-06-08] MEDS: carvedilol 25 mg Tablet PO ×2 (08:24→18:21)
[2022-06-08] MEDS: minoxidil 10 mg Tablet 5 MG PO (08:32)
[2022-06-08] MEDS: lisinopril 20 mg Tablet 40 MG PO (08:32)
[2022-06-08] MEDS: atorvastatin 40 mg Tablet 80 MG PO (08:32)
[2022-06-08] MEDS: FUROsemide 40 mg Tablet 80 MG PO ×2 (08:33→18:22)
[2022-06-08] MEDS: venlafaxine ER (24HR) 150 mg Capsule PO (08:33)
[2022-06-08] MEDS: pantoprazole DR 40 mg Tablet PO (08:33)
[2022-06-08] MEDS: ondansetron 2 mg/ML SDV 2 mL 4 MG IVP (09:07)
--- NOTE | 2022-06-08 11:26 | PM.PN ---
Subjective Subjective: feeling better. Surgery scheduled for tomorrow 8 am Vitals/I&O/Wt Last Vital Signs Temp 97.9 F 06/08/22 11:04 Pulse 79 06/08/22 11:04 Resp 18 06/08/22 11:04 BP 97/41 06/08/22 11:04 Pulse Ox 95 06/08/22 11:04 O2 Del Method 06/08/22 07:44 O2 Flow Rate 3 06/08/22 07:44 06/07/22 06/08/22 06/08/22 22:59 06:59 14:59 Intake Total 1240 / 1770 50 / 50 Output Total 100 / 100 Balance 1240 / 1770 -100 / 1670 50 / 50 Weight last 48 hrs Weight 108.862 kg Physical Exam Const: COMMON NORMALS: no acute distress and alert Extremity: NARRATIVE EXTREMITY EXAM: + edema Neuro: SENSORIUM/ORIENTATION: Yes alert Urinary Catheter Management: Barreto: Cath Placed During This Visit: yes Reason for Continuing Indwelling Catheter: Required Immobilization for Trauma or Surgery or Anesthesia Urinary Catheter Date of Insertion: 06/06/22 Urinary Catheter Time of Insertion: 21:30 Data : 06/07/22 01:50 06/07/22 01:50 Micro: Microbiology 06/06/22 18:06 Blood Culture - Preliminary Blood NEGATIVE TO DATE 06/06/22 18:10 Blood Culture - Preliminary Blood NEGATIVE TO DATE Echo: Radiologist's impression: 1. Normal left ventricular size, systolic function and mildly ?increased wall thickness, with no regional wall motion ?abnormalities. Left ventricular ejection fraction is estimated ?at 65-70 %. Grade II diastolic dysfunction, moderately elevated ?filling pressures. ?2. Severe mitral annular calcification. Thickened mitral valve. ?Mild to moderate mitral valve stenosis with mean gradient 9 mm ?Hg. ?3. Moderate pulmonary hypertension with pulmonary artery ?pressure estimated at 49 mm Hg. ?4. Direct comparison to previous study dated 03/07/2020 is not ?possible due to techical differences in study A&P Assessment and plan (1) End stage renal disease: seen via telemedicine with assistance of RN at bedside Plan 1. ESRD on peritoneal dialysis 2. UTI, on rocephin, culture not resulted 3. Ankle fracture, OR scheduled tomorrow AM 4. History of hypertension, BP running low - discontinue minoxidil and doxasosin and reduce lisinopril dose. Hold BP meds if BP low 5. Diabetes 6. Mild hyponatremia, stable 7. Anemia, continue weekly epogen, dosed yesterday Rec: continue CAPD peritoneal dialysis, alternate 2.5% and 1.5% Q4H. I have asked to bring in cycler and start and end treatments beginning night 10/ due to shortage of PD solution in hospital. There is enough solution available for 16 more exchanges. Drain PD fluid prior to OR gentamicin ointment to exit site after cleaning daily, continue outpatient diabetic and hypertensive medications. Attestations Medical Necessity Statement*: see above Time Spent in Patient Care: Greater than 35 minutes Coding Level of Care Code Acute Sow Farm Technician for Mikhail Gaitan Diagnoses End stage renal disease N18.6
--- NOTE | 2022-06-08 11:30 | PC.NURSE ---
patient had nausea after dialysis administered, this nurse administered zofran. Idodinized cap placed.
[2022-06-08 11:39] LABS: Glucose Point of Care 130 mg/dL (70-110)
--- NOTE | 2022-06-08 12:33 | P.PN_ITS ---
Subjective Subjective: Seen this morning. No acute events overnight. Ankle pain is better controlled. She is to see if decide regarding her procedure. Vitals/I&O/Wt Last Vital Signs Temp 97.9 F 06/08/22 11:04 Pulse 79 06/08/22 11:04 Resp 18 06/08/22 11:04 BP 97/41 06/08/22 11:04 Pulse Ox 95 06/08/22 11:04 O2 Del Method 06/08/22 07:44 O2 Flow Rate 3 06/08/22 07:44 06/07/22 06/08/22 06/08/22 22:59 06:59 14:59 Intake Total 1240 / 1770 50 / 50 Output Total 100 / 100 Balance 1240 / 1770 -100 / 1670 50 / 50 Weight last 48 hrs Weight 108.862 kg Physical Exam Narrative: General: Alert oriented x3, NAD HEENT: Normocephalic, atraumatic, EOMI, Cardio: Regular rate rhythm, normal S1-S2, Respiratory: Clear to auscultation bilaterally no wheezes no rhonchi no crackles at bases. GI: Abdomen soft, nontender, nondistended, bowel sounds +, abdominal obesity, dialysis catheter in place, Behavior: Appropriate and cooperative Extremities: Trace generalized lower extremity edema bilaterally, left lower extremity wrapped with Gt Band-Aid and splinted. Urinary Catheter Management: Barreto: Cath Placed During This Visit: yes Reason for Continuing Indwelling Catheter: Required Immobilization for Trauma or Surgery or Anesthesia Urinary Catheter Date of Insertion: 06/06/22 Urinary Catheter Time of Insertion: 21:30 Data : 06/07/22 01:50 06/07/22 01:50 Micro: Microbiology 06/06/22 21:20 Urine Culture - Preliminary Urine,Clean Catch 06/06/22 18:06 Blood Culture - Preliminary Blood NEGATIVE TO DATE 06/06/22 18:10 Blood Culture - Preliminary Blood NEGATIVE TO DATE A&P Assessment and plan (1) Fall in bathtub: (2) Closed left trimalleolar fracture: Qualifiers: Encounter type: subsequent encounter Fracture healing: with routine healing Qualified Code(s): S82.852D - Displaced trimalleolar fracture of left lower leg, subsequent encounter for closed fracture with routine healing (3) Hypertension: (4) Diabetes mellitus: (5) End stage renal disease: (6) Peritoneal dialysis status: (7) Diastolic heart failure: (8) Hypertension: Qualifiers: Hypertension type: essential hypertension Qualified Code(s): I10 - Essential (primary) hypertension (9) Hyperlipidemia: Qualifiers: Hyperlipidemia type: unspecified Qualified Code(s): E78.5 - Hyperlipidemia, unspecified (10) CKD (chronic kidney disease): Qualifiers: Chronic kidney disease stage: stage 3 (moderate) Qualified Code(s): N18.3 - Chronic kidney disease, stage 3 (moderate) (11) Sleep apnea: Qualifiers: Sleep apnea type: obstructive Qualified Code(s): G47.33 - Obstructive sleep apnea (adult) (pediatric) (12) Oxygen dependent: Plan #Trimalleolar ankle fracture #Status post fall, mechanical #Diabetes mellitus type 2 #Obstructive sleep apnea, noncompliant with CPAP due to intolerance #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 She tripped and fell as floor was slippery. Presented with unstable ankle fracture. It was reduced in the ER with conscious sedation and splinted. ? Podiatry to evaluate patient and patient to go for surgery. Consult pending. Briefly discussed with Dr. Urban. Patient will need special hardware for percutaneous ORIF. Recommend to elevate leg above hip. -Strictly nonweightbearing on left lower extremity. ? EKG did not reveal any acute ischemic changes - Normal left ventricular size, systolic function and mildly ?increased wall thickness, with no regional wall motion ?abnormalities. Left ventricular ejection fraction is estimated ?at 65-70 %. Grade II diastolic dysfunction, moderately elevated ?filling pressures. Mild mitral stenosis . Moderate pulmonary hypertension present ? Chest x-ray unremarkable except mild cardiomegaly ? Sliding scale insulin moderate intensity ? Continue home Lantus ? Continue all home medications. -Stop minoxidil and doxazosin. Will reduce dose of lisinopril today. Hold BP meds if blood pressure is low. ? Placed on renal diet -Consult nephrology for continuation of peritoneal dialysis. Appreciate their help. - Patient has fracture blisters. Dr. Urban took down dressing today. Pt given option of ankle nail vs waiting for soft tissue edema to improve to operate at a later date vs in AM Pt states she would like to think about further tx at this point and has not made a decision -Dr. Urban will speak to the patient and possibly schedule her for tomorrow morning if patient agreeable to nail placement. Full code DVT prophylaxis: Heparin SQ twice daily Attestations Medical Necessity Statement*: Patient will require inpatient status greater than 2 midnight for management of unstable ankle fracture. Potential Surgical intervention to take place on 06/09/2022. Patient is currently nonweightbearing.. Coding Level of Care Code Acute Applications Scientist for [employer] Diagnoses Fall in bathtub W18.2XXA Closed left trimalleolar fracture S82.852D Encounter type: subsequent encounter Fracture healing: with routine healing Hypertension I10 Diabetes mellitus E11.9 End stage renal disease N18.6 Peritoneal dialysis status Z99.2 Diastolic heart failure I50.30 Hypertension I10 Hypertension type: essential hypertension Hyperlipidemia E78.5 Hyperlipidemia type: unspecified CKD (chronic kidney disease) N18.3 Chronic kidney disease stage: stage 3 (moderate) Sleep apnea G47.33 Sleep apnea type: obstructive Oxygen dependent Z99.81
[2022-06-08 16:56] LABS: Glucose Point of Care 178 mg/dL (70-110)
--- NOTE | 2022-06-08 16:56 | PC.NURSE ---
Administered 2.5% PD fluid. Starting fluid clear and weight of 20 newtons. Drained fluid pale clear yellow in color. Weight of dialysis output was 20 newtons patient tolerated well.
[2022-06-08] MEDS: Dianeal low Ca w/2.5% dex 2,000 mL Bag 2000 ML INTRAPERIT (18:57)
[2022-06-08 21:49] LABS: Glucose Point of Care 207 mg/dL (70-110)
[2022-06-08] MEDS: insulin lispro 100 unit/1 mL SUBCUT (22:12)
[2022-06-09] VITALS (26 sets, daily range): BP systolic 94–161; BP diastolic 48–87; PULSE 76–98; RESP 10–20; TEMP 36.4–37.4; O2SAT 90–100
--- NOTE | 2022-06-09 | SCC_ITS ---
Procedure done: Left ankle arthrodesis. CPT code 14590 Left talocalcaneal arthrodesis. CPT code 78086 115.3 seconds of fluoroscopic guidance, for a cumulative dose of 1.5 mGy, was provided to Dr. Urban by the radiology department. C-arm images of the LEFT ankle were saved for the patient's permanent record. [facility]
--- NOTE | 2022-06-09 | XR_ITS ---
WS: [id number] INTRAOPERATIVE TECHNIQUE: 7 Spot fluoroscopic images for intraoperative purposes. FLUOROSCOPY TIME: 115.3 seconds CLINICAL INFORMATION: PAULETTE PICS COMPARISON: None. FINDINGS: Distal tibial fixation with previously described trimalleolar fracture. Fixation screws extend throug h the talus and calcaneus. Fracture of the distal fibula. XR/XR ankle LT 2V 80270 IMPRESSION: Images obtained for intraoperative purposes.
[2022-06-09] MEDS: ondansetron 2 mg/ML SDV 2 mL 4 MG IVP ×2 (01:16→10:15)
[2022-06-09] MEDS: HYDROcodone-acetaminophen 5-325 mg Tablet 1 TAB PO (01:16)
[2022-06-09] MEDS: Dianeal low Ca w/2.5% dex 2,000 mL Bag 2000 ML INTRAPERIT (01:30)
[2022-06-09] MEDS: morphine 4 mg/mL SDV 1 mL IVP (04:56)
[2022-06-09 05:35] LABS: Basophils % 0.2 %; Eosinophils # 0.1 10^3/uL (0.0-0.8); Eosinophils % 1.3 %; Hematocrit 30.4 % (37.0-47.0); Hemoglobin 9.2 g/dL (11.5-15.3); Lymphocytes # 0.6 10^3/uL (0.8-4.8); Lymphocytes % 10.8 %; Mean Corpuscular HGB Conc 30.3 g/dL (30.0-36.0); Mean Corpuscular Hemoglobin 29.9 pg (28.0-34.0); Mean Corpuscular Volume 98.7 fl (81-99); Mean Platelet Volume 10.9 fL (7.4-10.4); Monocytes # 0.9 10^3/uL (0.2-0.9); Neutrophils # 3.72 10^3/uL (1.8-7.7); Nucleated Red Blood Cells % 0.7 %; Platelet Count 158 10^3/cmm (130-400); Red Blood Count 3.08 10^6/uL (4.1-5.3); Red Cell Distribution Width 16.1 % (12.1-15.1); White Blood Count 5.5 10^3/uL (4.0-10.0)
[2022-06-09 06:03] LABS: Blood Urea Nitrogen 46 mg/dL (8-23); Calcium 9.4 mg/dL (8.5-10.5); Carbon Dioxide 29 mmol/L (22-29); Chloride 90 mmol/L (98-107); Glucose 133 mg/dL (65-115); Magnesium 2.6 mg/dL (1.7-2.3); Osmolality Calculated 288 mOsm/kg (285-295); Sodium 132 mmol/L (136-145)
--- NOTE | 2022-06-09 06:23 | PM.PN ---
Subjective Subjective: Patient seen bedside her daughter and present. Patient states her pain is well controlled, splint is intact, no strikethrough bleeding. Would like to discuss surgical options. Patient denies any subjective nausea, vomiting, fever, chills, shortness of breath or chest pain. Vitals/I&O/Wt Last Vital Signs Temp 98.4 F 06/09/22 04:00 Pulse 86 06/09/22 04:00 Resp 16 06/09/22 04:56 BP 95/58 06/09/22 04:00 Pulse Ox 91 06/09/22 04:00 O2 Del Method 06/08/22 20:00 O2 Flow Rate 3 06/08/22 20:00 06/08/22 06/08/22 06/09/22 14:59 22:59 06:59 Intake Total 290 / 290 240 / 530 Output Total 50 / 50 Balance 290 / 290 240 / 530 -50 / 480 Physical Exam Narrative: GENERAL: Patient is alert and oriented ?3 and in no acute distress.? The following is a focused bilateral lower extremity exam. VASCULAR: Dorsalis pedis palpable, posterior tibial arteries palpable.? Capillary refill time brisk to the distal hallux bilaterally. Calf is supple and nontender proximally and distally.? Edema to the left ankle. NEUROLOGICAL: Protective sensation intact to light touch. DERMATOLOGICAL: Abrasion to the left anterior ankle limited to breakdown of skin. Serous fluid-filled fracture blister at the left medial malleolus, left anterior ankle and left lateral malleolus. Thin atrophic skin with shiny appearance has decreased texture and turgor, decreased elasticity. MUSCULOSKELETAL: Pain to palpation at the left ankle medially and laterally.? No pain to palpation at the left forefoot.? Post reduction there is no gross deformity or acute dislocation appreciated to the left ankle.? Able to wiggle toes on command. Urinary Catheter Management: Barreto: Cath Placed During This Visit: yes Reason for Continuing Indwelling Catheter: Required Immobilization for Trauma or Surgery or Anesthesia Urinary Catheter Date of Insertion: 06/06/22 Urinary Catheter Time of Insertion: 21:30 Data : 06/09/22 04:30 06/09/22 04:30 Micro: Microbiology 06/06/22 21:20 Urine Culture - Preliminary Urine,Clean Catch A&P Assessment and plan (1) Closed left trimalleolar fracture: Qualifiers: Encounter type: subsequent encounter Fracture healing: with routine healing Qualified Code(s): S82.852D - Displaced trimalleolar fracture of left lower leg, subsequent encounter for closed fracture with routine healing (2) Fall in bathtub: (3) Peritoneal dialysis status: (4) Diabetes mellitus: (5) Blister over site of fracture of bone: Plan 71-year-old insulin-dependent diabetic female with end-stage renal disease presents with closed dislocated left trimalleolar fracture underwent near anatomic reduction under sedation in the emergency department currently splinted. Patient to remain strict nonweightbearing to the left lower extremity Elevate left lower extremity above the level of the hip Prophylactic anticoagulants per hospitalist Family meeting on surgical options at bedside. Of great concern is patient's soft tissue envelope, fracture blisters present. Another deciding factor is patient's activity levels. She is sedentary, her is her primary caregiver and assists with every day activities and living. She stands and transfers for short distances only, utilizes a wheelchair. Lives in a handicap accessible home. Given her poor soft tissue envelope and sedentary lifestyle intramedullary nailing is an appealing option to stabilize the fracture and avoid further soft tissue injury and help reduce the risk of postoperative infection. Discussed arthrodesis of the ankle in a neutral position should not prevent her from standing and walking and maintaining the activity levels that she carried out preinjury once she is fully recovered. Patient would like to proceed with this her and daughter are in agreement. I reviewed at length with the patient, the risks, potential complications, benefits, alternatives, expectations, and typical outcomes associated with the surgery. The risks and potential complications were explained in detail, including but not limited to infection, wound dehiscence or soft tissue complications, bleeding and hematoma, chronic edema, neuritis or nerve damage producing numbness or chronic pain, CRPS, failure to relieve pain or worsening pain, thick / painful / unsightly scar, limited motion / stiffness, malposition, delayed union, malunion, or nonunion, fracture, reaction to implants, anesthetic complications, venous thromboembolism, and deformity recurrence. I discussed the notion of no regrets with the patient as it pertains to complications and outcomes. The patient seemed to understand the nature of the proposed care and required convalescence. They asked appropriate questions, answered to their satisfaction. They are aware no guarantees can be made as to a satisfactory outcome and they understand there may be other possible unforeseen complications or outcomes not listed here that will be treated accordingly if they arise. There were no written or implied guarantees given to the patient. They gave informed consent to proceed. N.p.o. at midnight Hold heparin Left tibial talocalcaneal arthrodesis with intramedullary nail scheduled for 06/09/2022 at 8:00 AM Anticipating discharge home on 06/12/2022 Attestations Medical Necessity Statement*: Left trimalleolar fracture Coding Level of Care Code Acute Installer Interior Assemblies for [facility] Fwd Diagnoses Closed left trimalleolar fracture S82.852D Encounter type: subsequent encounter Fracture healing: with routine healing Fall in bathtub W18.2XXA Peritoneal dialysis status Z99.2 Diabetes mellitus E11.9 Blister over site of fracture of bone
--- NOTE | 2022-06-09 06:30 | P.OP_ITS ---
Operative Report Date of procedure: June 09, 2022 Pre-op diagnosis: Left trimalleolar fracture Post-op diagnosis: Same Procedure done: Left ankle arthrodesis. CPT code 71515 Left talocalcaneal arthrodesis. CPT code 73225 Implants: [place] T2 nail and 5 mm screws x 4, 4-0 nylon Specimens removed/disposition: None Pathology: None Surgeon: Heber Urban D.P.M. Accounting Manager Cpa: Erica Estimated blood loss: 10 64 IV fluids: See intra operative documentation Urine output: See intraoperative documentation Complications: None Brief History: 71-year-old insulin-dependent diabetic female with end-stage renal disease presents with closed dislocated left trimalleolar fracture underwent near anatomic reduction under sedation in the emergency department currently splinted. Family meeting on surgical options at bedside.? Of great concern is patient's soft tissue envelope, fracture blisters present.? Another deciding factor is patient's activity levels.? She is sedentary, her is her primary caregiver and assists with every day activities and living.? She stands and transfers for short distances only, utilizes a wheelchair.? Lives in a handicap accessible home.? Given her poor soft tissue envelope and sedentary lifestyle intramedullary nailing is an appealing option to stabilize the fracture and avoid further soft tissue injury and help reduce the risk of postoperative infection.? Discussed arthrodesis of the ankle in a neutral position should not prevent her from standing and walking and maintaining the activity levels that she carried out preinjury once she is fully recovered.? Patient would like to proceed with this her and daughter are in agreement. I reviewed at length with the patient, the risks, potential complications, benefits, alternatives, expectations, and typical outcomes associated with the surgery. The risks and potential complications were explained in detail, including but not limited to infection, wound dehiscence or soft tissue complications, bleeding and hematoma, chronic edema, neuritis or nerve damage producing numbness or chronic pain, CRPS, failure to relieve pain or worsening pain, thick / painful / unsightly scar, limited motion / stiffness, malposition, delayed union, malunion, or nonunion, fracture, reaction to implants, anesthetic complications, venous thromboembolism, and deformity recurrence.? I discussed the notion of no regrets with the patient as it pertains to complications and outcomes. The patient seemed to understand the nature of the proposed care and required convalescence. They asked appropriate questions, answered to their satisfaction. They are aware no guarantees can be made as to a satisfactory outcome and they understand there may be other possible unforeseen complications or outcomes not listed here that will be treated accordingly if they arise. There were no written or implied guarantees given to the patient. They gave informed consent to proceed. Procedure: Under mild sedation the patient was brought to the operating room and transferred to the operating table in supine position. A timeout was performed. Of note left popliteal block was performed per anesthesia preoperatively. Anesthesia was then administered by the anesthesia service. Well-padded pneumatic tourniquet applied to the left high calf. Left lower extremity was then scrubbed, prepped and draped utilizing normal aseptic technique. Left foot and ankle were gently exanguinated with an Esmarch bandage and tourniquet inflated to 250 mmHg. Fracture blisters remained intact at the medial malleolus, anterior ankle and lateral ankle superiorly, fracture blisters were not present at the area of entry point for the lateral to medial talar screw. C-arm utilized and a lateral view to determine the longitudinal axis of the tibia and intramedullary canal this was marked on skin, additional master on the AP view of the longitudinal bisection of the tibia followed by a calcaneal axial view to master the midline and slightly lateral calcaneal entry point. Next a 3 mm K wire was inserted from posterior to superior through the body of the calcaneus, through the body of the talus and with ankle joint in neutral position, slightly externally rotated and translated posteriorly the wire was advanced into the tibiotalar joint and proximal to the tibial plafond and and confirmed to be excellent in all 3 planes both AP, oblique, lateral as well as the calcaneal axial. Next a step-off reamer provided by [employer] was utilized to drill from calcaneus to talus and into the distal tibia followed by biscuit reaming and 5 mm increments starting at 9 mm reamed up to 12.5 mm with excellent chatter this determined a 11 mm x 200 mm intramedullary nail which was utilized with its accompanying jig and inserted from distal to proximal with excellent bony apposition, compression and alignment of the ankle and ideal arthrodesis position with neutral dorsiflexion, second toe in line with the patella in the posterior translation of the talus slightly within the mortise to shorten the lever arm. The talar screw was advanced within the compression slot from lateral to medial with excellent bony apposition followed by 2 proximal tibial screws and a distal calcaneal screw. The jig/outrigger was then removed all temporary fixation was removed and positioning was maintained this was confirmed utilizing direct visualization as well as intraoperative fluoroscopy in all 3 planes. The incisions were flushed with copious amounts of sterile skin solution and closed with 4-0 nylon. Fracture blisters were dressed with Xeroform, sterile 4 x 4, Kerlix, 4 inch stockinette followed by application of well-padded short leg cast. Tourniquet was deflated and a prompt hyperemic response was noted to the distal digits of the left foot. Patient tolerated the procedure and anesthesia well and was transferred to the PACU with vital signs stable and vascular status intact. Following a period of postoperative monitoring she will be transferred back to the floor, planning on discharge home on Saturday after pain control and medically stabilized. Patient is to remain strict nonweightbearing and elevate left foot at all times.
--- NOTE | 2022-06-09 06:30 | W.PM.OPSUD ---
Surgery/Procedure H&P Update DATE OF PROCEDURE: June 09, 2022 DATE H&P PERFORMED: 06/06/22 CHANGES TO PREVIOUS DOCUMENTATION: None PLANNED PROCEDURE: Operation Date: 06/09/22 08:00 Proposed Procedures p ORIF Ankle Trimal(Left) - Heber Urban DPM s Arthrodesis Foot(Left) - Heber Urban DPM
[2022-06-09 06:31] LABS: Glucose Point of Care 167 mg/dL (70-110)
--- NOTE | 2022-06-09 07:36 | P.ANESASSM_ITS ---
Pre-Anesthetic Assessment Height/Weight: Height 1.68 m Weight 108.862 kg Temp Pulse Resp BP Pulse Ox O2 Del Method O2 Flow Rate 98.4 F 86 16 95/58 91 3 06/09/22 04:00 06/09/22 04:00 06/09/22 04:56 06/09/22 04:00 06/09/22 04:00 06/08/22 20:00 06/08/22 20:00 Operation Date: 06/09/22 08:00 Proposed Procedures p ORIF Ankle Trimal(Left) - Heber Urban DPM s Arthrodesis Foot(Left) - Heber Urban DPM Familial anesthetic complications: none Was Beta Richard taken within 24 hours: Yes Was Clonidine taken within 24 hours: N/A Last intake: Intake Last Liquid Date 06/08/22 Last Liquid Time 23:00 Last Solid Date 06/08/22 Last Solid Time 18:00 Social No alcohol and No tobacco Exam alert, oriented x 3, clear to auscultation bilaterally and regular rate & rhythm Airway Mallampati: Class IV Dentition: full Pulmonary Sleep Apnea O2 dependent CV/HEM Anemia and Hypertension echo CONCLUSIONS ?1. Normal left ventricular size, systolic function and mildly ?increased wall thickness, with no regional wall motion ?abnormalities. Left ventricular ejection fraction is estimated ?at 65-70 %. Grade II diastolic dysfunction, moderately elevated ?filling pressures. ?2. Severe mitral annular calcification. Thickened mitral valve. ?Mild to moderate mitral valve stenosis with mean gradient 9 mm ?Hg. ?3. Moderate pulmonary hypertension with pulmonary artery ?pressure estimated at 49 mm Hg. ?4. Direct comparison to previous study dated 03/07/2020 is not ?possible due to techical differences in study Chronic Renal Failure (dialysis) Metabolic Diabetes Mellitus, Hyperlipidemia and Morbid Obesity Anesthetic Plan ASA status: 4 Anesthesia: General and Regional (specify below) Medications/Allergies Home Medications Medication Instructions Recorded Confirmed Last Taken Type acetaminophen 500 mg tablet 1,000 mg PO Q6H PRN Pain 04/20/20 06/06/22 Unknown History melatonin 3 mg capsule 12 mg PO BEDTIME 04/20/20 06/06/22 06/05/22 History Bed side commode with rails #1 ea 04/10/21 06/06/22 Unknown Rx insulin regular human 100 unit/mL 15 unit (0.15 mL) SUBCUT TID PRN 09/22/21 06/06/22 06/06/22 Rx injection solution (Novolin R hyperglycemia #20 mL Regular U-100 Insulin) insulin glargine U-300 conc 300 See Rx Instructions .Route 01/08/22 06/06/22 06/06/22 Rx unit/mL (1.5 mL) subcutaneous pen .COMPLEX #4.5 mL (Toujeo SoloStar U-300 Insulin) cetirizine 10 mg tablet See Rx Instructions .Route 01/24/22 06/06/22 06/06/22 Rx .COMPLEX #30 tabs albuterol sulfate 90 mcg/actuation 2 puff inhalation Q6H PRN 02/14/22 06/06/22 Unknown Rx aerosol inhaler shortness of breath or wheezing #8.5 grams budesonide-formoterol HFA 160 2 inh inhalation BID #10.2 grams 02/14/22 06/06/22 06/06/22 Rx mcg-4.5 mcg/actuation aerosol inhaler (Symbicort) calcium acetate 667 mg tablet 1,334 mg PO TID 02/14/22 06/06/22 06/06/22 History doxazosin 2 mg tablet 2 mg PO DAILY 02/14/22 06/06/22 06/06/22 History cholecalciferol (vitamin D3) 10 10 mcg PO DAILY 04/05/22 06/06/22 06/06/22 H istory mcg (400 unit) tablet cyanocobalamin (vitamin B-12) 100 100 mcg PO DAILY 04/05/22 06/06/22 06/06/22 History mcg tablet docusate sodium 100 mg capsule 100 mg PO BID 04/05/22 06/06/22 06/06/22 History furosemide 80 mg tablet (Lasix) 80 mg PO BID 04/05/22 06/06/22 06/06/22 History lisinopril 20 mg tablet 40 mg PO DAILY 04/05/22 06/06/22 06/06/22 History pantoprazole 40 mg tablet,delayed 40 mg PO DAILY 04/05/22 06/06/22 06/06/22 History release promethazine 25 mg tablet 25 mg PO Q6H PRN Nausea 04/05/22 06/06/22 Unknown History ferrous sulfate 325 mg (65 mg See Rx Instructions .Route 05/10/22 06/06/22 06/06/22 Rx iron) tablet (FeroSul) .COMPLEX #30 tabs carvedilol 12.5 mg tablet 25 mg PO BID 06/06/22 06/06/22 06/06/22 History minoxidil 2.5 mg tablet 5 mg PO DAILY 06/06/22 06/06/22 06/06/22 History multivitamin 1 tab PO DAILY 06/06/22 06/06/22 06/06/22 History ondansetron HCl 8 mg tablet 8 mg PO Q8H PRN Nausea 06/06/22 06/06/22 Unknown History rosuvastatin 40 mg tablet 40 mg PO DAILY 06/06/22 06/06/22 06/05/22 History venlafaxine 150 mg 150 mg PO DAILY 06/06/22 06/06/22 06/05/22 History capsule,extended release 24 hr Allergies Allergy/AdvReac Type Severity Reaction Status Date / Time gabapentin Allergy Severe shaking, Verified 05/08/22 14:45 weakness, nifedipine [From Procardia] Allergy Unknown Verified 04/05/22 14:49 propoxyphene Allergy Unknown Verified 04/05/22 14:49 [From Darvocet-N] codeine AdvReac Unknown Verified 04/05/22 14:49 metformin AdvReac ADR-Nausea Verified 04/05/22 14:49 Current Medications Generic Name Dose Route Start Last Admin Trade Name Freq PRN Reason Stop Dose Admin Hydrocodone Bitart/Acetaminophen 1 tab 06/08/22 08:00 06/09/22 01:16 Hydrocodone-Acetaminophen 5-325 Mg Tablet PO 1 tab Q4H PRN Administration MODERATE PAIN Atorvastatin Calcium 80 mg 06/07/22 09:00 06/08/22 08:32 Atorvastatin 40 Mg Tablet PO 80 mg DAILY TOMMY Administration Calcium Acetate 1,334 mg 06/06/22 21:00 06/08/22 20:16 Calcium Acetate 667 Mg Capsule PO 1,334 mg TID TOMMY Administration Carvedilol 25 mg 06/06/22 20:09 06/08/22 18:21 Carvedilol 25 Mg Tablet PO 25 mg BID TOMMY Administration Docusate Sodium 100 mg 06/06/22 20:09 06/08/22 18:22 Docusate Sodium 100 Mg Capsule PO 100 mg BID TOMMY Administration Ferrous Sulfate 325 mg 06/07/22 08:00 06/08/22 08:24 Ferrous Sulfate Ec 325 Mg Tablet PO 325 mg BREAKFAST TOMMY Administration Furosemide 80 mg 06/06/22 20:09 06/08/22 18:22 Furosemide 40 Mg Tablet PO 80 mg BID TOMMY Administration Gentamicin Sulfate 1 applic 06/07/22 09:00 06/08/22 08:23 Gentamicin 0.1% Cream 15 Gm TOPICAL 1 applic DAILY TOMMY Administration Ceftriaxone Sodium 1,000 mg/ 50 mls @ 100 mls/hr 06/07/22 09:00 06/08/22 10:10 Sodium Chloride IV Infused DAILY TOMMY Infusion Protocol Insulin Human Lispro 0 unit 06/06/22 18:00 06/08/22 22:12 Insulin Lispro 100 Unit/1 Ml SUBCUT 6 unit WM&BEDTIME TOMMY Administration Protocol Morphine Sulfate 4 mg 06/06/22 20:09 06/09/22 04:56 Morphine 4 Mg/Ml Sdv 1 Ml IVP 4 mg Q4H PRN Administration SEVERE PAIN Multivitamins/Minerals 1 tab 06/07/22 09:00 06/08/22 08:33 Multivitamin W/Minerals Tablet PO 1 tab DAILY TOMMY Administration Non-Formulary Medication 2 inh 06/06/22 20:09 06/08/22 16:24 Budesonide-Formoterol [Symbicort] INHALATION Not Given BID TOMMY Non-Formulary Medication 10 mcg 06/07/22 09:00 06/08/22 08:44 Cholecalciferol (Vitamin D3) PO Not Given DAILY [facility] Non-Formulary Medication 100 mcg 06/07/22 09:00 06/08/22 08:44 Cyanocobalamin (Vitamin B-12) PO Not Given DAILY [facility] Non-Formulary Medication 12 mg 06/06/22 21:00 06/08/22 20:08 Melatonin PO Not Given BEDTIME [facility] Ondansetron HCl 4 mg 06/06/22 17:39 06/08/22 09:07 Ondansetron 2 Mg/Ml Sdv 2 Ml IVP 4 mg Q8H PRN Administration vomiting, or N/V if npo Ondansetron HCl 4 mg 06/06/22 20:09 06/09/22 01:16 Ondansetron 2 Mg/Ml Sdv 2 Ml IVP 4 mg Q6H PRN Administration NAUSEA AND VOMITING Pantoprazole Sodium 40 mg 06/07/22 09:00 06/08/22 08:[address] 40 Mg Tablet PO 40 mg DAILY TOMMY Administration Pantoprazole Sodium 40 mg 06/07/22 09:00 06/08/22 08:[address] 40 Mg Tablet PO Not Given DAILY TOMMY Peritoneal Dialysis Solution 2,000 ml 06/08/22 18:45 06/09/22 01:30 Dianeal Low Ca W/2.5% Dex 2,000 Ml Bag INTRAPERIT 2,000 ml 1800,0200,1000 TOMMY Administration Peritoneal Dialysis Solution 2,000 ml 06/08/22 22:00 06/09/22 07:15 Dianeal Low Ca W/1.5% Dex 2,000 Ml Bag INTRAPERIT Not Given 1400,2200,0600 TOMMY Promethazine HCl 25 mg 06/06/22 20:09 06/07/22 01:30 Promethazine 25 Mg Tablet PO 25 mg Q6H PRN Administration Nausea Venlafaxine HCl 150 mg 06/07/22 09:00 06/08/22 08:33 Venlafaxine Er (24hr) 150 Mg Capsule PO 150 mg DAILY TOMMY Administration PFSH Anesthesia Medical History (Updated 06/07/22 @ 17:14 by Heber Urban DPM) CKD (chronic kidney disease) Depression Diabetes Diastolic heart failure Echo done February 2020 shows an EF of 60% with grade 1 diastolic dysfunction. Hyperlipidemia Hypertension Kidney malignancy froze off 5 yrs ago Macular degeneration getting shots in eye Sleep apnea no cpap due to intolerance Surgical History History of back surgery History of eye surgery History of hysterectomy Family History Mother Diabetes Chronic kidney disease (CKD) Other Cancer Denies family history of CAD (coronary artery disease) Social History Smoking and tobacco status: never smoked Alcohol intake: never Marital status: History of recent travel: No Data Anesthesia : 06/09/22 04:30 06/09/22 04:30 Short CBC 06/09/22 Range/Units 04:30 WBC 5.5 (4.0-10.0) 10^3/uL Hgb 9.2 L (11.5-15.3) g/dL Hct 30.4 L (37.0-47.0) % MCV 98.7 (81-99) fl Plt Count 158 (130-400) 10^3/cmm Neut % (Auto) 68.0 % Neut # (Auto) 3.72 (1.8-7.7) 10^3/uL BMP 06/09/22 04:30 Sodium 132 L Potassium 5.0 Chloride 90 L Carbon Dioxide 29 BUN 46 H Creatinine 8.0 H* Glucose 133 H Calcium 9.4 Microbiology 06/06/22 21:20 Urine Culture - Preliminary Urine,Clean Catch Cardiac Studies: Echocardiogram 06/06/22 Echocardiogram Limited Views 03/07/20
--- NOTE | 2022-06-09 07:58 | ANES.PROC ---
Anesthesia Procedures Procedure/Date: 06/09/22 Nerve Block ^: Nerve Block 1: Main Anesthesia: general anesthesia Time Out Performed: Yes Consent: requested by attending/covering physician, from patient, risks and benefits reviewed and patient agrees to proceed Nerve block location: popliteal (L) Anesthesia monitors applied: pulse oximetry, EKG, BP cuff and oxygen Nerve block position: semi sitting Anesthetic Used: ropivicaine 0.5% (30) and with decadron (4 mg) Ultrasound used to: recognize landmarks Nerve Stimulator Used?: No Interscalene/Femoral BLK: 4 stimuplex 21 g needle used for position and inplane approach, visualize local anesthetic spread and no vascular puncture identified Injection: neg aspiration of heme Patient Tolerated Procedure: well Complications: none
[2022-06-09] MEDS: sodium chloride 0.9% 1,000 ML 30 ML IV (07:59)
[2022-06-09] MEDS: clindamycin 900 MG/50 ML PREMIX 100 MG IV (07:59)
--- NOTE | 2022-06-09 09:58 | PC.SOCIAL ---
Pg 2 IMM Explained to pt's family Pg 2 IMM. No questions voiced. Provided pt a copy. Initialed, dated, & timed a copy & placed in chart.
--- NOTE | 2022-06-09 10:51 | P.PN_ITS ---
Subjective Subjective: lethargic postop at bedside - bringing in PD cycler this afternoon Vitals/I&O/Wt Last Vital Signs Temp 98.9 F 06/09/22 09:48 Pulse 80 06/09/22 10:45 Resp 14 06/09/22 10:45 BP 158/58 06/09/22 10:45 Pulse Ox 94 06/09/22 10:45 O2 Del Method 06/09/22 10:45 O2 Flow Rate 4 06/09/22 10:45 06/08/22 06/09/22 06/09/22 22:59 06:59 14:59 Intake Total 240 / 530 50 / 50 Output Total 50 / 50 20 / 20 Balance 240 / 530 -50 / 480 30 Physical Exam Urinary Catheter Management: Colbert: Cath Placed During This Visit: yes Reason for Continuing Indwelling Catheter: Required Immobilization for Trauma or Surgery or Anesthesia Urinary Catheter Date of Insertion: 06/06/22 Urinary Catheter Time of Insertion: 21:30 Data : 06/09/22 04:30 06/09/22 04:30 Micro: Microbiology 06/06/22 21:20 Urine Culture - Final Urine,Clean Catch A&P Assessment and plan (1) End stage renal disease: seen via telemedicine with assistance of RN at bedside Plan 1. ESRD on peritoneal dialysis 2. Pyuria, urine culture neg 3. Ankle fracture, s/p surgical repair this AM 4. Hypertension, continue current medications 5. Diabetes 6. Mild hyponatremia, stable 7. Anemia, Hb lower, check iron studies. Received epogen 06/07/22 Rec: discontinue CAPD peritoneal dialysis due to hospital shortage of Dianeal. to bring in cycler and start and end treatments beginning tonight. Use 6L 1.5% and 6L 2.5% nightly. gentamicin ointment to exit site after cleaning daily. Discontinue colbert ca theter. Attestations Medical Necessity Statement*: see above Time Spent in Patient Care: 16 - 35 minutes Coding Level of Care Code Acute Rim Fire Priming Tool Setter for Mikhail Gaitan Diagnoses End stage renal disease N18.6
--- NOTE | 2022-06-09 11:30 | ANE.PACU2 ---
Inpatient post-anesthesia follow up: Airway intact: Yes Vital signs: Temperature 98.9 F Pulse Rate 95 Respiratory Rate 15 Blood Pressure 124/76 Pulse Oximetry 94 Oxygen Delivery Me thod Room Air Oxygen Flow Rate 5 Fraction of Inspir ed Oxygen Hydration adequate: Yes Nausea and vomiting: No Pain level: 1 Mental status: Baseline
[2022-06-09 12:52] LABS: Ferritin 949 ng/mL (15-150); Iron 34 ug/dL (37-145); Percent Saturation 22.8 % (20-50); Total Iron Binding Capacity 149 mcg/dl; Unsaturated Iron Binding 115 ug/dL (112-347)
--- NOTE | 2022-06-09 13:49 | P.PN_ITS ---
Subjective Subjective: seen in PACU s/p procedure denies pain recovering met at bedside he brought cycler from home. Vitals/I&O/Wt Last Vital Signs Temp 98.6 F 06/09/22 12:33 Pulse 85 06/09/22 12:33 Resp 14 06/09/22 12:33 BP 100/48 06/09/22 12:33 Pulse Ox 96 06/09/22 12:33 O2 Del Method 06/09/22 12:33 O2 Flow Rate 4 06/09/22 10:58 06/08/22 06/09/22 06/09/22 22:59 06:59 14:59 Intake Total 240 / 530 300 / 300 Output Total 50 / 50 45 / 45 Balance 240 / 530 -50 / 480 255 / 255 Physical Exam Narrative: General: Alert oriented x3, NAD HEENT: Normocephalic, atraumatic, EOMI, Cardio: Regular rate rhythm, normal S1-S2, Respiratory: Clear to auscultation bilaterally no wheezes no rhonchi no crackles at bases. GI: Abdomen soft, nontender, nondistended, bowel sounds +, abdominal obesity, dialysis catheter in place, Behavior: Appropriate and cooperative Extremities: Trace generalized lower extremity edema bilaterally, left lower extremity wrapped with Gt Band-Aid and splinted. Urinary Catheter Management: Barreto: Cath Placed During This Visit: yes Reason for Continuing Indwelling Catheter: Required Immobilization for Trauma or Surgery or Anesthesia Urinary Catheter Date of Insertion: 06/06/22 Urinary Catheter Time of Insertion: 21:30 Data : 06/09/22 04:30 06/09/22 04:30 Micro: Microbiology 06/06/22 21:20 Urine Culture - Final Urine,Clean Catch A&P Assessment and plan (1) Fall in bathtub: (2) Closed left trimalleolar fracture: Qualifiers: Encounter type: subsequent encounter Fracture healing: with routine healing Qualified Code(s): S82.852D - Displaced trimalleolar fracture of left lower leg, subsequent encounter for closed fracture with routine healing (3) Hypertension: (4) Diabetes mellitus: (5) End stage renal disease: (6) Peritoneal dialysis status: (7) Diastolic heart failure: (8) Hypertension: Qualifiers: Hypertension type: essential hypertension Qualified Code(s): I10 - Essential (primary) hypertension (9) Hyperlipidemia: Qualifiers: Hyperlipidemia type: unspecified Qualified Code(s): E78.5 - Hyperlipidemia, unspecified (10) CKD (chronic kidney disease): Qualifiers: Chronic kidney disease stage: stage 3 (moderate) Qualified Code(s): N18.3 - Chronic kidney disease, stage 3 (moderate) (11) Sleep apnea: Qualifiers: Sleep apnea type: obstructive Qualified Code(s): G47.33 - Obstructive sleep apnea (adult) (pediatric) (12) Oxygen dependent: Plan #Trimalleolar ankle fracture #Status post fall, mechanical #Diabetes mellitus type 2 #Obstructive sleep apnea, noncompliant with CPAP due to intolerance #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 She tripped and fell as floor was slippery. Presented with unstable ankle fracture. It was reduced in the ER with conscious sedation and splinted. ? Podiatry to evaluate patient and patient to go for surgery. Consult pending. Briefly discussed with Dr. Urban. Patient will need special hardware for percutaneous ORIF. Recommend to elevate leg above hip. -Strictly nonweightbearing on left lower extremity. ? EKG did not reveal any acute ischemic changes - Normal left ventricular size, systolic function and mildly ?increased wall thickness, with no regional wall motion ?abnormalities. Left ventricular ejection fraction is estimated ?at 65-70 %. Grade II diastolic dysfunction, moderately elevated ?filling pressures. Mild mitral stenosis . Moderate pulmonary hypertension present ? Chest x-ray unremarkable except mild cardiomegaly ? Sliding scale insulin moderate intensity ? Continue home Lantus ? Continue all home medications. -Stop minoxidil and doxazosin. Will reduce dose of lisinopril today. Hold BP meds if blood pressure is low. ? Placed on renal diet -Consult nephrology for continuation of peritoneal dialysis. Appreciate their help. - Patient has fracture blisters. Pt s/p nail placement today. Seen in PACU. Full code DVT prophylaxis: Heparin SQ twice daily Attestations Medical Necessity Statement*: Patient will require inpatient status greater than 2 midnight for management of unstable ankle fracture. Potential Surgical intervention to take place on 06/09/2022. Patient is currently nonweightbearing.. Coding Level of Care Code Acute Artificial Marble Worker for Chg Fwd Diagnoses Fall in bathtub W18.2XXA Closed left trimalleolar fracture S82.852D Encounter type: subsequent encounter Fracture healing: with routine healing Hypertension I10 Diabetes mellitus E11.9 End stage renal disease N18.6 Peritoneal dialysis status Z99.2 Diastolic heart failure I50.30 Hypertension I10 Hypertension type: essential hypertension Hyperlipidemia E78.5 Hyperlipidemia type: unspecified CKD (chronic kidney disease) N18.3 Chronic kidney disease stage: stage 3 (moderate) Sleep apnea G47.33 Sleep apnea type: obstructive Oxygen dependent Z99.81
[2022-06-09 17:17] LABS: Glucose Point of Care 220 mg/dL (70-110)
[2022-06-09] MEDS: carvedilol 25 mg Tablet PO (17:32)
[2022-06-09] MEDS: calcium acetate 667 mg Capsule 1334 MG PO ×2 (17:32→20:14)
[2022-06-09] MEDS: FUROsemide 40 mg Tablet 80 MG PO (17:33)
[2022-06-09] MEDS: docusate sodium 100 mg Capsule PO (17:33)
[2022-06-09] MEDS: insulin lispro 100 unit/1 mL SUBCUT ×2 (18:09→21:40)
[2022-06-09] MEDS: heparin 5,000 unit/mL INJ 1 mL 5000 UNIT SUBCUT (20:14)
--- NOTE | 2022-06-09 20:21 | PC.NURSE ---
PD Has continuous PD per cycler brought in by . set it up around 1500 and says will disconnect when finished then he will be going home. Says PD usually takes about 10 hours to complete
[2022-06-09 21:17] LABS: Glucose Point of Care 256 mg/dL (70-110)
--- NOTE | 2022-06-10 00:46 | PC.NURSE ---
PD PD finished and discontinued everything and went home
[2022-06-10 04:00] VITALS: BP 126/61; PULSE 98; RESP 15; TEMP 37.2; O2SAT 91
[2022-06-10 06:09] LABS: Basophils % 0.1 %; Eosinophils # 0.1 10^3/uL (0.0-0.8); Eosinophils % 0.8 %; Hematocrit 28.8 % (37.0-47.0); Hemoglobin 8.6 g/dL (11.5-15.3); Lymphocytes # 0.5 10^3/uL (0.8-4.8); Mean Corpuscular HGB Conc 29.9 g/dL (30.0-36.0); Mean Corpuscular Hemoglobin 29.1 pg (28.0-34.0); Mean Corpuscular Volume 97.3 fl (81-99); Mean Platelet Volume 10.7 fL (7.4-10.4); Monocytes # 1.2 10^3/uL (0.2-0.9); Monocytes % 13.1 %; Neutrophils # 6.94 10^3/uL (1.8-7.7); Neutrophils % 78.5 %; Nucleated Red Blood Cells % 0.3 %; Platelet Count 146 10^3/cmm (130-400); Red Blood Count 2.96 10^6/uL (4.1-5.3); Red Cell Distribution Width 15.9 % (12.1-15.1); White Blood Count 8.8 10^3/uL (4.0-10.0)
[2022-06-10 06:31] LABS: Glucose Point of Care 148 mg/dL (70-110)
[2022-06-10 06:50] LABS: Anion Gap 20.7 (5-19); Blood Urea Nitrogen 46 mg/dL (8-23); Calcium 9.3 mg/dL (8.5-10.5); Carbon Dioxide 27 mmol/L (22-29); Chloride 92 mmol/L (98-107); Glucose 145 mg/dL (65-115); Osmolality Calculated 294 mOsm/kg (285-295); Phosphorus 5.7 mg/dL (2.5-4.5); Potassium 4.7 mmol/L (3.5-5.1); Sodium 135 mmol/L (136-145)
--- NOTE | 2022-06-10 07:14 | P.PN_ITS ---
Subjective Subjective: performed CCPD last evening Hailey reports cough with upper abdominal pain when she cpughs cannot tell me if PD fluid was clear or if icodextrin dwell was placed after CCPD this morning. Does not know if she has fluid in her abdomen has had 1 BM since hospitalization Vitals/I&O/Wt Last Vital Signs Temp 99 F 06/10/22 04:00 Pulse 98 06/10/22 04:00 Resp 15 06/10/22 04:00 BP 126/61 06/10/22 04:00 Pulse Ox 91 06/10/22 04:00 O2 Del Method 06/09/22 20:00 O2 Flow Rate 5 06/09/22 20:00 06/09/22 06/10/22 06/10/22 22:59 06:59 14:59 Intake Total 788 / 1088 120 / 1208 Balance 788 / 1043 120 / 1163 Physical Exam Const: COMMON NORMALS: no acute distress Urinary Catheter Management: Colbert: Cath Placed During This Visit: yes Reason for Continuing Indwelling Catheter: Required Immobilization for Trauma or Surgery or Anesthesia Urinary Catheter Date of Insertion: 06/06/22 Urinary Catheter Time of Insertion: 21:30 Data : 06/10/22 05:37 06/10/22 05:37 Other Labs: phos 5.7, TSAT 22.8%, SF 949 Micro: Microbiology 06/06/22 21:20 Urine Culture - Final Urine,Clean Catch A&P Assessment and plan (1) End stage renal disease: seen via telemedicine with assistance of RN at bedside Plan 1. ESRD on peritoneal dialysis 2. Hypoxia, cough, low grade temp. CXR ordered 3. Ankle fracture, s/p surgical repair 4. Hypertension, continue current medications 5. Diabetes 6. Mild hyponatremia, stable 7. Anemia, Hb lower, iron replete. redose epogen today Rec: RN to contact regarding fluid removed on CCPD, was fluid clear?, day dwell?, perform dressing change. Needs laxative, try to get out of bed. Urinalysis and culture, then remove colbert. 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
[2022-06-10 07:34] VITALS: BP 124/76; PULSE 95; RESP 15; TEMP 37.2; O2SAT 94
--- NOTE | 2022-06-10 07:36 | XRR_ITS ---
PROCEDURE INFORMATION: Exam: XR Chest Exam date and time: 06/10/2022 8:22 AM Age: 71 years old Clinical indication: Shortness of breath; Prior surgery; Surgery type: Lt ankle; Additional info: Hypoxia TECHNIQUE: Imaging protocol: Radiologic exam of the chest. Views: 1 view. COMPARISON: CR XR chest 1V portable [id number] 06/06/2022 2:45 PM FINDINGS: Lungs: New left lower lobe infiltrate. Pleural spaces: Unremarkable. No pleural effusion. No pneumothorax. Heart/Mediastinum: Cardiomegaly. Bones/joints: Unremarkable. XR/XR chest 1V portable [id number] IMPRESSION: New left lower lobe infiltrate.
[2022-06-10 07:53] VITALS: PULSE 92; RESP 18; O2SAT 97
--- NOTE | 2022-06-10 08:19 | P.PN_ITS ---
Subjective Subjective: Patient seen bedside this morning. States pain is being managed with pain medication. Patient denies any acute events overnight. Tolerating regular diet. Vitals/I&O/Wt Last Vital Signs Temp 98.9 F 06/10/22 07:34 Pulse 92 06/10/22 07:53 Resp 18 06/10/22 07:53 BP 124/76 06/10/22 07:34 Pulse Ox 97 06/10/22 07:53 O2 Del Method 06/10/22 07:53 O2 Flow Rate 5 06/10/22 07:53 06/09/22 06/10/22 06/10/22 22:59 06:59 14:59 Intake Total 788 / 1088 120 / 1208 Balance 788 / 1043 120 / 1163 Physical Exam Narrative: GENERAL: Patient is alert and oriented ?3 and in no acute distress.? The following is a focused bilateral lower extremity exam. VASCULAR: Brisk capillary refill time to all 5 toes, left foot. Popliteal pulse +2 to the left and right. NEUROLOGICAL: Protective sensation intact to light touch. DERMATOLOGICAL: Surgical dressing and short leg cast are clean, dry and intact, no strikethrough bleeding. [place] skin tone at all 5 digits to the left. MUSCULOSKELETAL: Short leg cast left intact.? Able to wiggle toes on command. Urinary Catheter Management: Barreto: Cath Placed During This Visit: yes Reason for Continuing Indwelling Catheter: Required Immobilization for Trauma or Surgery or Anesthesia Urinary Catheter Date of Insertion: 06/06/22 Urinary Catheter Time of Insertion: 21:30 Data : 06/10/22 05:37 06/10/22 05:37 Micro: Microbiology 06/06/22 21:20 Urine Culture - Final Urine,Clean Catch A&P Assessment and plan (1) Blister over site of fracture of bone: (2) Closed left trimalleolar fracture: Qualifiers: Encounter type: subsequent encounter Fracture healing: with routine healing Qualified Code(s): S82.852D - Displaced trimalleolar fracture of left lower leg, subsequent encounter for closed fracture with routine healing (3) Fall in bathtub: Qualifiers: Encounter type: subsequent encounter Qualified Code(s): W18.2XXD - Fall in (into) shower or empty bathtub, subsequent encounter (4) End stage renal disease: (5) Diabetes mellitus: Qualifiers: Diabetes mellitus type: type 2 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 Status post tibial talocalcaneal arthrodesis with intramedullary nail to the left lower extremity. * Toe-touch for transfers * Elevate left foot while resting * Okay for discharge from podiatry standpoint * I will send hydrocodone 5/325 mg to be taken every 6 hours as needed for pain to [facility] * Recommend 81 mg aspirin once daily to potentially reduce risk for deep vein thrombosis. * Keep postoperative dressing and short leg cast clean, dry and intact, will be changing this every 2 weeks in clinic. No at home dressing changes. * Follow-up in podiatry clinic 06/21/2022 at 10:15 AM for repeat x-ray and dressing/cast change. Attestations Medical Necessity Statement*: Left trimalleolar fracture Coding Level of Care Code Acute Plate Grainer Apprentice for [facility] Fwd Diagnoses Blister over site of fracture of bone Closed left trimalleolar fracture S82.852D Encounter type: subsequent encounter Fracture healing: with routine healing Fall in bathtub W18.2XXD Encounter type: subsequent encounter End stage renal disease N18.6 Diabetes mellitus E11.69 Diabetes mellitus type: type 2 Diabetes mellitus shelter insulin use: unspecified shelter insulin use status Diabetes mellitus complication status: with other specified complication
--- NOTE | 2022-06-10 08:33 | XRR_ITS ---
PROCEDURE INFORMATION: Exam: XR Left Ankle Exam date and time: 06/10/2022 8:25 AM Age: 71 years old Clinical indication: Pain; Left; Prior surgery; Surgery date: Post-operative (0-2 days); Surgery type: Lt ankle; Additional info: Post op TECHNIQUE: Imaging protocol: Radiologic exam of the Left ankle. Views: 3 or more views. COMPARISON: CR XR ankle LT 2V [id number] 06/06/2022 3:25 PM FINDINGS: Bones/joints: New fixation of the distal tibia. This spans the tibia, talus and calcaneus. Stable medial malleolus as well as distal fibular fracture. Stable posterior malleolar fracture. Soft tissues: Normal. Other findings: Cast. XR/XR ankle LT min 3V* [id number] IMPRESSION: Distal tibial fixation with a stable trimalleolar fracture.
[2022-06-10] MEDS: atorvastatin 40 mg Tablet 80 MG PO (08:56)
[2022-06-10] MEDS: venlafaxine ER (24HR) 150 mg Capsule PO (08:56)
[2022-06-10] MEDS: cefTRIAXone 1,000 MG in sodium chloride 0.9% (plus) 50 ML 100 MG IV (08:57)
[2022-06-10] MEDS: lisinopril 20 mg Tablet PO (08:57)
[2022-06-10] MEDS: heparin 5,000 unit/mL INJ 1 mL 5000 UNIT SUBCUT ×2 (08:57→20:52)
[2022-06-10] MEDS: docusate sodium 100 mg Capsule PO ×2 (08:57→17:11)
[2022-06-10] MEDS: pantoprazole DR 40 mg Tablet PO (08:57)
[2022-06-10] MEDS: calcium acetate 667 mg Capsule 1334 MG PO ×3 (08:57→20:52)
[2022-06-10] MEDS: FUROsemide 40 mg Tablet 80 MG PO ×2 (09:15→17:12)
[2022-06-10] MEDS: insulin lispro 100 unit/1 mL SUBCUT ×3 (09:17→21:01)
[2022-06-10] MEDS: carvedilol 25 mg Tablet PO ×2 (09:22→17:11)
[2022-06-10] MEDS: epoetin alfa 1000 Unit/0.05 mL (ESRD) 20000 UNIT SUBCUT (10:13)
--- NOTE | 2022-06-10 10:34 | P.DS_ITS ---
Discharge Providers Date of Admission: 06/06/22 17:39 Date of Discharge: June 10, 2022 Attending Provider at Admission: Sylvia Villeda MD Attending Provider at Discharge: Sylvia Villeda MD Primary Care Provider: Mana Barragan MD Diagnoses at Discharge Discharge Diagnosis (1) Blister over site of fracture of bone: Status: Acute (2) Closed left trimalleolar fracture: Status: Acute Qualifiers: Encounter type: subsequent encounter Fracture healing: with routine healing Qualified Code(s): S82.852D - Displaced trimalleolar fracture of left lower leg, subsequent encounter for closed fracture with routine healing (3) Fall in bathtub: Status: Acute Qualifiers: Encounter type: subsequent encounter Qualified Code(s): W18.2XXD - Fall in (into) shower or empty bathtub, subsequent encounter (4) End stage renal disease: Status: Acute (5) Diabetes mellitus: Status: Acute Qualifiers: Diabetes mellitus complication status: with other specified complication 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 skilled nursing insulin use status Diabetes mellitus type: type 2 Qualified Code(s): E11.69 - Type 2 diabetes mellitus with other specified complication Reason for Visit Reason for Visit: Open Ankle Fracture Physical Exam Urinary Catheter Management: Barreto: Cath Placed During This Visit: yes Reason for Continuing Indwelling Catheter: Required Immobilization for Trauma or Surgery or Anesthesia Urinary Catheter Date of Insertion: 06/06/22 Urinary Catheter Time of Insertion: 21:30 Discharge Data Studies Completed and Pending Completed Studies During Hospitalization Category Date Time Status XR ankle LT 2V [id number] Stat Exams 06/06/22 15:54 Completed XR ankle LT min 3V* [id number] Stat Exams 06/06/22 14:31 Completed XR chest 1V portable [id number] Stat Exams 06/06/22 14:31 Completed XR tibia fibula LT 2V [id number] Stat Exams 06/06/22 14:31 Completed CV. echo complete* [id number] Routine Ultrasound 06/06/22 21:06 Completed Pending at discharge Category Date Time Status C-arm Fluoroscopy [id number] Routine Exams 06/09/22 07:39 Taken XR ankle LT min 3V* [id number] Routine Exams 06/10/22 08:33 Taken XR chest 1V portable [id number] Routine Exams 06/10/22 07:36 Taken Blood Culture Routine Lab 06/06/22 18:06 Results Urinalysis and Microscopic Routine Lab 06/10/22 07:56 Ordered Urine Culture Routine Lab 06/10/22 07:56 Ordered Radiology Impressions Tibia/Fibula X-Ray 06/06/22 14:31 Impression: Negative for fracture of the proximal two thirds of left tibia and fibula. Laboratory Results WBC 8.8 10^3/uL (4.0-10.0) 06/10/22 05:37 RBC 2.96 10^6/uL (4.1-5.3) L 06/10/22 05:37 Hgb 8.6 g/dL (11.5-15.3) L 06/10/22 05:37 Hct 28.8 % (37.0-47.0) L 06/10/22 05:37 MCV 97.3 fl (81-99) 06/10/22 05:37 MCH 29.1 pg (28.0-34.0) 06/10/22 05:37 MCHC 29.9 g/dL (30.0-36.0) L 06/10/22 05:37 RDW 15.9 % (12.1-15.1) H 06/10/22 05:37 Plt Count 146 10^3/cmm (130-400) 06/10/22 05:37 MPV 10.7 fL (7.4-10.4) H 06/10/22 05:37 Neut % (Auto) 78.5 % 06/10/22 05:37 Lymph % (Auto) 6.0 % 06/10/22 05:37 [place] % (Auto) 13.1 % 06/10/22 05:37 Eos % (Auto) 0.8 % 06/10/22 05:37 Baso % (Auto) 0.1 % 06/10/22 05:37 Neut # (Auto) 6.94 10^3/uL (1.8-7.7) 06/10/22 05:37 Lymph # (Auto) 0.5 10^3/uL (0.8-4.8) L 06/10/22 05:37 [place] # (Auto) 1.2 10^3/uL (0.2-0.9) H 06/10/22 05:37 Eos # (Auto) 0.1 10^3/uL (0.0-0.8) 06/10/22 05:37 Baso # (Auto) 0.0 10^3/uL (0.0-0.1) 06/10/22 05:37 Nucleated RBC % (auto) 0.3 % 06/10/22 05:37 Nucleated RBCs # 0.0 /100WBC 06/10/22 05:37 PT 14.60 SECONDS (12.1-14.9) 06/07/22 01:50 INR 1.11 (0.8-1.2) 06/07/22 01:50 APTT 30.3 SECONDS (23.9-36.7) 06/06/22 14:31 Sodium 135 mmol/L (136-145) L 06/10/22 05:37 Potassium 4.7 mmol/L (3.5-5.1) 06/10/22 05:37 Chloride 92 mmol/L (98-107) L 06/10/22 05:37 Carbon Dioxide 27 mmol/L (22-29) 06/10/22 05:37 Anion Gap 20.7 (5-19) H 06/10/22 05:37 BUN 46 mg/dL (8-23) H 06/10/22 05:37 Creatinine 8.4 mg/dL (0.5-0.9) H* 06/10/22 05:37 GFR Calculation Not Reportable 06/10/22 05:37 Glucose 145 mg/dL (65-115) H 06/10/22 05:37 POC Glucose 148 mg/dL (70-110) H 06/10/22 06:24 Estimat Average Glucose 117 06/06/22 14:31 Hemoglobin A1c 5.7 % (4.0-6.0) 06/06/22 14:31 Calculated Osmolality 294 mOsm/kg (285-295) 06/10/22 05:37 Calcium 9.3 mg/dL (8.5-10.5) 06/10/22 05:37 Phosphorus 5.7 mg/dL (2.5-4.5) H 06/10/22 05:37 Magnesium 2.6 mg/dL (1.7-2.3) H 06/09/22 04:30 Iron 34 ug/dL (37-145) L 06/09/22 04:30 TIBC 149 mcg/dl 06/09/22 04:30 % Saturation 22.8 % (20-50) 06/09/22 04:30 Unsat Iron Binding 115 ug/dL (112-347) 06/09/22 04:30 Ferritin 949 ng/mL (15-150) H 06/09/22 04:30 Total Bilirubin 0.3 mg/dL (0.15-1.2) 06/07/22 01:50 AST 17 U/L (0-32) 06/07/22 01:50 ALT 17 U/L (0-33) 06/07/22 01:50 Alkaline Phosphatase 42 U/L (35-105) 06/07/22 01:50 NT-Pro-B Natriuret Pep 22435 pg/mL (0-125) H 06/06/22 14:31 NT-Pro-B Natriuret Pep Cancelled 06/06/22 14:31 Total Protein 6.0 g/dL (6.6-8.7) L 06/07/22 01:50 Albumin 3.4 g/dL (3.5-5.2) L 06/07/22 01:50 Globulin 2.6 g/dL (1.3-4.6) 06/07/22 01:50 Procalcitonin 0.39 ng/mL (0-0.5) 06/06/22 14:31 Urine Color Yellow (Yellow) 06/06/22 21:20 Urine Appearance Clear (CLEAR) 06/06/22 21:20 Urine pH 7 (5-7) 06/06/22 21:20 Ur Specific [place] 1.010 (1.005-1.030) 06/06/22 21:20 Urine Protein 3+ (Negative) H 06/06/22 21:20 Urine Glucose (UA) 1+ (Normal) H 06/06/22 21:20 Urine Ketones Negative (Negative) 06/06/22 21:20 Urine Blood 2+ (Negative) H 06/06/22 21:20 Urine Nitrate Negative (Negative) 06/06/22 21:20 Urine Bilirubin Neg (Negative) 06/06/22 21:20 Urine Urobilinogen Norm mg/dL (Negative) 06/06/22 21:20 Ur Leukocyte Esterase 2+ (Negative) H 06/06/22 21:20 Urine RBC 10-15 /hpf (0-2) H 06/06/22 21:20 Urine WBC Too numerous to cnt /hpf (0-5) H 06/06/22 21:20 Ur Squamous Epith Cells 5-10 /hpf (0-5) H 06/06/22 21:20 Amorphous Sediment Not Reportable 06/10/22 10:17 Urine Bacteria 4+ /hpf (NONE) H 06/06/22 21:20 Vitals Last Vital Signs Temp 98.9 F 06/10/22 07:34 Pulse 92 06/10/22 07:53 Resp 18 06/10/22 07:53 BP 124/76 06/10/22 07:34 Pulse Ox 97 06/10/22 07:53 O2 Del Method 06/10/22 07:53 O2 Flow Rate 5 06/10/22 08:00 Discharge Plan Discharge Patient Disposition: Home Health Service Condition: Stable Prescriptions: New hydrocodone-acetaminophen 5-325 mg tablet 1 tab PO Q6H PRN (Reason: pain) 7 Days Qty: 28 0RF amoxicillin-pot clavulanate 875-125 mg tablet 1 tab PO BID 2 Days Qty: 4 0RF aspirin 81 mg capsule 81 mg PO DAILY 30 Days Qty: 30 0RF polyethylene glycol 3350 17 gram Powder In Packet 17 g PO DAILY PRN (Reason: Constipation) 14 Days Qty: 10 0RF Continued melatonin 3 mg capsule 12 mg PO BEDTIME (DME) Bed side commode with rails See Rx Instructions .Route .MEDSUPPLY Qty: 1 0RF Rx Instructions: As directed calcium acetate 667 mg tablet 1,334 mg PO TID Rx Instructions: take 2 capsules with meals and 1 capsule with snacks budesonide-formoterol [Symbicort] 160-4.5 mcg/actuation HFA aerosol inhaler 2 inh inhalation BID Qty: 10.2 0RF albuterol sulfate 90 mcg/actuation HFA aerosol inhaler 2 puff inhalation Q6H PRN (Reason: shortness of breath or wheezing) Qty: 8.5 0RF promethazine 25 mg tablet 25 mg PO Q6H PRN (Reason: Nausea) cholecalciferol (vitamin D3) 10 mcg (400 unit) tablet 10 mcg PO DAILY cyanocobalamin (vitamin B-12) 100 mcg tablet 100 mcg PO DAILY docusate sodium 100 mg capsule 100 mg PO BID furosemide [Lasix] 80 mg tablet 80 mg PO BID pantoprazole 40 mg tablet,delayed release (DR/EC) 40 mg PO DAILY Novolin R Regular U-100 Insuln 100 unit/mL solution 15 unit SUBCUT TID PRN (Reason: hyperglycemia) Qty: 20 3RF Rx Instructions: use sliding scale from 1-15 units as discussed Cecilia BernabePraveen U-300 Insulin 300 unit/mL (1.5 mL) insulin pen See Rx Instructions .ROUTE .COMPLEX Qty: 4.5 1RF Dose Instruction: inject 15 units SUBCUTANEOUSLY DAILY Rx Instructions: inject 15 units SUBCUTANEOUSLY DAILY cetirizine 10 mg tablet See Rx Instructions .ROUTE .COMPLEX Qty: 30 4RF Dose Instruction: TAKE 1/2 TABLET BY MOUTH DAILY As Needed FOR allergy symptoms Rx Instructions: TAKE 1/2 TABLET BY MOUTH DAILY As Needed FOR allergy symptoms ferrous sulfate [FeroSul] 325 mg (65 mg iron) tablet See Rx Instructions .ROUTE .COMPLEX Qty: 30 0RF Dose Instruction: take one tablet BY MOUTH DAILY with BREAKFAST Rx Instructions: take one tablet BY MOUTH DAILY with BREAKFAST carvedilol 12.5 mg tablet 25 mg PO BID venlafaxine 150 mg capsule,extended release 24hr 150 mg PO DAILY rosuvastatin 40 mg tablet 40 mg PO DAILY multivitamin Tablet 1 tab PO DAILY Zofran 8 mg Tablet 8 mg PO Q8H PRN (Reason: Nausea) Changed lisinopril 20 mg tablet 20 mg PO DAILY 30 Days Qty: 30 0RF Discontinued acetaminophen 500 mg tablet 1,000 mg PO Q6H PRN (Reason: Pain) doxazosin 2 mg tablet 2 mg PO DAILY minoxidil 2.5 mg tablet 5 mg PO DAILY Discharge Orders: Discharge Order (Routine); Ordered 06/10/22 Ordered By: Sylvia Villeda Referrals: [email or web address] [Other] ([facility] has accepted you for services. If you have any questions or concerns please contact them at [phone].) Heber Urban DPM [Physician] - 06/21/22 10:15 am Liliana Sharp MD [Physician] - Mana Barragan MD [Primary Care Provider] - 4-7 days Discharge Diet: Usual diet Discharge Activity: Limit activity as instructed Patient Instructions: Opioid Safety, Pain Management Activity Restrictions/Additional Instructions: * Toe-touch for transfers * Elevate left foot while resting * Keep postoperative dressing and short leg cast clean, dry and intact, will be changing this every 2 weeks in clinic.? No at home dressing changes. * Follow-up in podiatry clinic 06/21/2022 at 10:15 AM for repeat x-ray and dressing/cast change. Discharge Attestations Status at Discharge: Cognitive status at discharge: cognitively intact , Behavioral status at discharge: cooperative , Coding Level of Care Code Acute g [facility] note Diagnoses Blister over site of fracture of bone Closed left trimalleolar fracture S82.852D Encounter type: subsequent encounter Fracture healing: with routine healing Fall in bathtub W18.2XXD Encounter type: subsequent encounter End stage renal disease N18.6 Diabetes mellitus E11.69 Diabetes mellitus complication status: with other specified complication Diabetes mellitus skilled nursing insulin use: unspecified skilled nursing insulin use status Diabetes mellitus type: type 2
[2022-06-10 10:49] LABS: Bilirubin Urine Neg (Negative); Blood Urine 3+ (Negative); Glucose Urine UA Trace (Normal); Ketones Urine 1+ (Negative); Leukocyte Esterase Urine 2+ (Negative); Nitrate Urine Negative (Negative); Protein Urine 3+ (Negative); Urine Appearance Cloudy (CLEAR); Urine Color Yellow (Yellow); Urobilinogen Urine Norm (Negative); pH Urine 6 (5-7)
[2022-06-10 10:53] LABS: RBC Urine 80-100 /hpf (0-2); WBC Urine TOO NUMEROUS TO CNT /hpf (0-5)
[2022-06-10 10:55] LABS: Bacteria Urine 2+ /hpf; Squamous Epithelial Cell Urine RARE /hpf (0-5)
[2022-06-10 10:56] LABS: Add Urine Culture? No
[2022-06-10 11:23] LABS: Glucose Point of Care 133 mg/dL (70-110)
[2022-06-10 11:30] VITALS: BP 121/76; PULSE 89; RESP 18; TEMP 37.1; O2SAT 95
--- NOTE | 2022-06-10 11:49 | PM.PN ---
Subjective Subjective: Seen this morning. Patient is congested. Also has a new cough. Repeat chest x-ray this a.m. shows infiltrate in left lower lobe. On 5 L nasal cannula at this time. Vitals/I&O/Wt Last Vital Signs Temp 98.7 F 06/10/22 11:30 Pulse 89 06/10/22 11:30 Resp 18 06/10/22 11:30 BP 121/76 06/10/22 11:30 Pulse Ox 95 06/10/22 11:30 O2 Del Method 06/10/22 07:53 O2 Flow Rate 5 06/10/22 08:00 06/09/22 06/10/22 06/10/22 22:59 06:59 14:59 Intake Total 788 / 1088 120 / 1208 290 / 290 Balance 788 / 1043 120 / 1163 290 / 290 Physical Exam Narrative: General: Alert oriented x3, NAD HEENT: Normocephalic, atraumatic, EOMI, Cardio: Regular rate rhythm, normal S1-S2, Respiratory: Clear to auscultation bilaterally, some rales at left base, diminished at right base. GI: Abdomen soft, nontender, nondistended, bowel sounds +, abdominal obesity, dialysis catheter in place, Behavior: Appropriate and cooperative Extremities: Trace generalized lower extremity edema bilaterally, left lower extremity has cast in place. Urinary Catheter Management: Barreto: Cath Placed During This Visit: yes Reason for Continuing Indwelling Catheter: Perioperative Use in Selected Surgeries Urinary Catheter Date of Insertion: 06/06/22 Urinary Catheter Time of Insertion: 21:30 Data : 06/10/22 05:37 06/10/22 05:37 Micro: Microbiology 06/06/22 21:20 Urine Culture - Final Urine,Clean Catch A&P Assessment and plan (1) Fall in bathtub: Qualifiers: Encounter type: subsequent encounter Qualified Code(s): W18.2XXD - Fall in (into) shower or empty bathtub, subsequent encounter (2) Closed left trimalleolar fracture: Qualifiers: Encounter type: subsequent encounter Fracture healing: with routine healing Qualified Code(s): S82.852D - Displaced trimalleolar fracture of left lower leg, subsequent encounter for closed fracture with routine healing (3) Hypertension: (4) Diabetes mellitus: Qualifiers: Diabetes mellitus complication status: with other specified complication 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 [facility] insulin use status Diabetes mellitus type: type 2 Qualified Code(s): E11.69 - Type 2 diabetes mellitus with other specified complication (5) End stage renal disease: (6) Peritoneal dialysis status: (7) Diastolic heart failure: (8) Hypertension: Qualifiers: Hypertension type: essential hypertension Qualified Code(s): I10 - Essential (primary) hypertension (9) Hyperlipidemia: Qualifiers: Hyperlipidemia type: unspecified Qualified Code(s): E78.5 - Hyperlipidemia, unspecified (10) CKD (chronic kidney disease): Qualifiers: Chronic kidney disease stage: stage 3 (moderate) Qualified Code(s): N18.3 - Chronic kidney disease, stage 3 (moderate) (11) Sleep apnea: Qualifiers: Sleep apnea type: obstructive Qualified Code(s): G47.33 - Obstructive sleep apnea (adult) (pediatric) (12) Oxygen dependent: Plan #Trimalleolar ankle fracture status post tibial talocalcaneal arthrodesis with intramedullary nail to the left lower extremity #Status post fall, mechanical #Diabetes mellitus type 2 #Obstructive sleep apnea, noncompliant with CPAP due to intolerance #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 She tripped and fell as floor was slippery. Presented with unstable ankle fracture. It was reduced in the ER with conscious sedation and splinted. ? Patient is status post tibial talocalcaneal arthrodesis with intramedullary nail to left lower extremity -May use toe-touch for transfers, elevate foot while resting. ? EKG did not reveal any acute ischemic changes - Normal left ventricular size, systolic function and mildly ?increased wall thickness, with no regional wall motion ?abnormalities. Left ventricular ejection fraction is estimated ?at 65-70 %. Grade II diastolic dysfunction, moderately elevated ?filling pressures. Mild mitral stenosis . Moderate pulmonary hypertension present ? Chest x-ray unremarkable except mild cardiomegaly ? Sliding scale insulin moderate intensity ? Continue home Lantus ? Continue all home medications. -Stop minoxidil and doxazosin. Lisinopril 20 daily. Hold blood pressure medications if BP low ? Placed on renal diet -Consult nephrology for continuation of peritoneal dialysis. Appreciate their help. -Escalate antibiotics to vancomycin and Zosyn. Check urine antigens for strep and Legionella. Patient does make some urine still. Check MRSA nares PCR -Check sputum gram stain and culture. ? Patient does have a mild temp as well. -Originally was going to discharge patient today however with new left lower lobe developing pneumonia patient to remain in hospital today. ? Patient's stated that peritoneal fluid was clear. We will send sample for cytology and culture as well. Full code DVT prophylaxis: Heparin SQ twice daily Attestations Medical Necessity Statement*: Requires continued hospitalization for new left lower lobe pneumonia. Requiring 5 L nasal cannula. Continue on broad-spectrum antibiotics. 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
[2022-06-10 12:24] LABS: Procalcitonin 0.67 ng/mL (0-0.5)
[2022-06-10] MEDS: linezolid premix 600 MG/300 ML PREMIX 300 MG IV (13:15)
[2022-06-10] MEDS: piperacillin-tazobactam 3.375 GM in sodium chloride 0.9% (plus) 50 ML IV (14:22)
[2022-06-10 15:20] LABS: Albumin Body Fluid 0.2 g/dL; Total Protein Body Fluid 0.2 g/dL
[2022-06-10 16:00] VITALS: BP 123/75; PULSE 87; RESP 18; TEMP 36.9; O2SAT 96
[2022-06-10 16:44] LABS: Glucose Point of Care 229 mg/dL (70-110)
[2022-06-10] MEDS: ondansetron 2 mg/ML SDV 2 mL 4 MG IVP (17:16)
[2022-06-10 20:00] VITALS: BP 120/67; PULSE 87; PULSE 91; RESP 17; RESP 18; TEMP 36.7; O2SAT 95; O2SAT 97
[2022-06-10 20:50] LABS: Glucose Point of Care 217 mg/dL (70-110)
[2022-06-10 23:48] LABS: Glucose Point of Care 190 mg/dL (70-110)
[2022-06-11] VITALS (8 sets, daily range): BP systolic 115–170; BP diastolic 56–82; PULSE 79–89; RESP 15–18; TEMP 36.6–36.9; O2SAT 70–96
[2022-06-11] MEDS: piperacillin-tazobactam 3.375 GM in sodium chloride 0.9% (plus) 50 ML IV ×2 (01:16→18:12)
[2022-06-11] MEDS: linezolid premix 600 MG/300 ML PREMIX 300 MG IV ×2 (01:17→15:32)
[2022-06-11] MEDS: ondansetron 2 mg/ML SDV 2 mL 4 MG IVP (03:34)
[2022-06-11 05:04] LABS: Basophils % 0.2 %; Eosinophils # 0.2 10^3/uL (0.0-0.8); Eosinophils % 1.8 %; Hematocrit 29.7 % (37.0-47.0); Hemoglobin 8.9 g/dL (11.5-15.3); Lymphocytes # 0.6 10^3/uL (0.8-4.8); Lymphocytes % 6.6 %; Mean Corpuscular Hemoglobin 29.7 pg (28.0-34.0); Mean Platelet Volume 10.8 fL (7.4-10.4); Monocytes # 1.2 10^3/uL (0.2-0.9); Monocytes % 14.4 %; Neutrophils # 6.26 10^3/uL (1.8-7.7); Neutrophils % 74.8 %; Nucleated Red Blood Cells % 0.5 %; Platelet Count 154 10^3/cmm (130-400); White Blood Count 8.4 10^3/uL (4.0-10.0)
[2022-06-11 05:23] LABS: Anion Gap 18.5 (5-19); Blood Urea Nitrogen 44 mg/dL (8-23); Calcium 9.4 mg/dL (8.5-10.5); Carbon Dioxide 29 mmol/L (22-29); Chloride 88 mmol/L (98-107); Glucose 172 mg/dL (65-115); Magnesium 2.5 mg/dL (1.7-2.3); Osmolality Calculated 287 mOsm/kg (285-295); Potassium 4.5 mmol/L (3.5-5.1); Sodium 131 mmol/L (136-145)
[2022-06-11 06:37] LABS: Glucose Point of Care 179 mg/dL (70-110)
[2022-06-11] MEDS: calcium acetate 667 mg Capsule 1334 MG PO ×3 (09:11→21:08)
[2022-06-11] MEDS: FUROsemide 40 mg Tablet 80 MG PO ×2 (09:12→18:16)
[2022-06-11] MEDS: atorvastatin 40 mg Tablet 80 MG PO (09:12)
[2022-06-11] MEDS: lisinopril 20 mg Tablet PO (09:12)
[2022-06-11] MEDS: insulin lispro 100 unit/1 mL SUBCUT ×4 (09:13→21:08)
[2022-06-11] MEDS: venlafaxine ER (24HR) 150 mg Capsule PO (09:13)
[2022-06-11] MEDS: pantoprazole DR 40 mg Tablet PO (09:13)
[2022-06-11] MEDS: docusate sodium 100 mg Capsule PO ×2 (09:13→18:17)
[2022-06-11] MEDS: heparin 5,000 unit/mL INJ 1 mL 5000 UNIT SUBCUT ×2 (09:13→21:08)
[2022-06-11] MEDS: carvedilol 25 mg Tablet PO ×2 (09:13→18:16)
[2022-06-11 11:07] LABS: Glucose Point of Care 195 mg/dL (70-110)
--- NOTE | 2022-06-11 11:40 | PM.PN ---
Subjective Subjective: she says she feels sleepy no BM since admission - refused miralax has not been OOB denies pain using O2 at home 2-3L NC performed PD last night with cycler. Again did not leave report for nurses. Reported to RN yesterday that fluid was clear RN did dressing change and applied gentamicin ointment to exit site colbert has been removed Vitals/I&O/Wt Last Vital Signs Temp 98.0 F 06/11/22 08:00 Pulse 88 06/11/22 08:00 Resp 16 06/11/22 08:00 BP 170/82 06/11/22 08:00 Pulse Ox 70 L 06/11/22 10:50 O2 Del Method 06/11/22 08:00 O2 Flow Rate 4 06/11/22 10:50 06/10/22 06/11/22 06/11/22 22:59 06:59 14:59 Intake Total 410 / 1360 470 / 1830 360 / 360 Balance 410 / 1360 470 / 1830 360 / 360 Physical Exam Urinary Catheter Management: Colbert: Cath Placed During This Visit: yes Reason for Continuing Indwelling Catheter: Perioperative Use in Selected Surgeries Urinary Catheter Date of Insertion: 06/06/22 Urinary Catheter Time of Insertion: 21:30 Data : 06/11/22 04:10 06/11/22 04:10 Other Labs: urine + pyuria Micro: Microbiology 06/10/22 10:17 Bacterial Antigens - Final Urine,Clean Catch 06/10/22 10:17 Legionella Urinary Antigen - Final Urine Catheterized A&P Assessment and plan (1) End stage renal disease: seen via telemedicine with assistance of RN at bedside Plan 1. ESRD on peritoneal dialysis 2. constipation, possible atelectasis 3. Ankle fracture, s/p surgical repair 4. Hypertension, continue current medications 5. Diabetes 6. Mild hyponatremia, stable 7. Anemia, Hb stable 8. Persistent pyruia. Bacteria Ag neg, urine culture pending. On piperacillin and linezolid Rec: RN to contact regarding fluid removed on CCPD and document Needs laxative, try to get out of bed. Attestations Medical Necessity Statement*: per primary service Time Spent in Patient Care: 16 - 35 minutes Coding Level of Care Code Acute Duplication Specialist for [facility] Fwd Diagnoses End stage renal disease N18.6
--- NOTE | 2022-06-11 11:58 | P.PN_ITS ---
Subjective Subjective: Patient was seen this morning, she tells me that she continues to feel weak, physical therapy has not seen her, she tells that she has anyone got up to the side of the bed and study had, she denies any fevers overnight, no chest pain, no shortness of breath, no cough, no dysuria Vitals/I&O/Wt Last Vital Signs Temp 98.0 F 06/11/22 08:00 Pulse 88 06/11/22 08:00 Resp 16 06/11/22 08:00 BP 170/82 06/11/22 08:00 Pulse Ox 70 L 06/11/22 10:50 O2 Del Method 06/11/22 08:00 O2 Flow Rate 4 06/11/22 10:50 06/10/22 06/11/22 06/11/22 22:59 06:59 14:59 Intake Total 410 / 1360 470 / 1830 360 / 360 Balance 410 / 1360 470 / 1830 360 / 360 Physical Exam Const: COMMON NORMALS: no acute distress and patient oriented x3 Resp: COMMON NORMALS: normal respiratory effort, No retractions, No use of a ccessory muscles and clear to auscultation bilaterally AUSCULTATION: clear to auscultation bilaterally Cardio: COMMON NORMALS: regular rate, regular rhythm, S1 normal heart sound present and S2 normal heart sound present RATE: regular rate RHYTHM: regular rhythm HEART SOUNDS: S1 normal heart sound present and S2 normal heart sound present GI: COMMON NORMALS: Normal to inspection, nondistended, normoactive bowel sounds present, non-tender and no masses Extremity: COMMON NORMALS: no pedal edema NARRATIVE EXTREMITY EXAM: Left foot in a cast Neuro: COMMON NORMALS: patient oriented x3 Psych: COMMON NORMALS: mental status grossly normal Urinary Catheter Management: Barreto: Cath Placed During This Visit: yes Reason for Continuing Indwelling Catheter: Perioperative Use in Selected [place] es Urinary Catheter Date of Insertion: 06/06/22 Urinary Catheter Time of Insertion: 21:30 Data : 06/11/22 04:10 06/11/22 04:10 Micro: Microbiology 06/10/22 10:17 Bacterial Antigens - Final Urine,Clean Catch 06/10/22 10:17 Legionella Urinary Antigen - Final Urine Catheterized A&P Assessment and plan (1) Blister over site of fracture of bone: (2) Peritoneal dialysis status: (3) Pneumonia: (4) Acute renal failure: Qualifiers: Acute renal failure type: unspecified Qualified Code(s): N17.9 - Acute kidney failure, unspecified (5) Hypertension: Qualifiers: Hypertension type: essential hypertension Qualified Code(s): I10 - Essential (primary) hypertension (6) Hyperlipidemia: Qualifiers: Hyperlipidemia type: unspecified Qualified Code(s): E78.5 - Hyperlipidemia, unspecified (7) CKD (chronic kidney disease): Qualifiers: Chronic kidney disease stage: stage 3 (moderate) Qualified Code(s): N18.3 - Chronic kidney disease, stage 3 (moderate) Plan #Trimalleolar ankle fracture status post tibial talocalcaneal arthrodesis with intramedullary nail to the left lower extremity #Status post fall, mechanical #Diabetes mellitus type 2 #Obstructive sleep apnea, noncompliant with CPAP due to intolerance #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 She tripped and fell as floor was slippery. Presented with unstable ankle fracture. It was reduced in the ER with conscious sedation and splinted. ? Patient is status post tibial talocalcaneal arthrodesis with intramedullary nail to left lower extremity -May use toe-touch for transfers, elevate foot while resting. ? EKG did not reveal any acute ischemic changes - Normal left ventricular size, systolic function and mildly ?increased wall thickness, with no regional wall motion ?abnormalities. Left ventricular ejection fraction is estimated ?at 65-70 %. Grade II diastolic dysfunction, moderately elevated ?filling pressures. Mild mitral stenosis . Moderate pulmonary hypertension present ? Chest x-ray unremarkable except mild cardiomegaly ? Sliding scale insulin moderate intensity ? Continue home Lantus ? Continue all home medications. -Stop minoxidil and doxazosin. Lisinopril 20 daily. Hold blood pressure medications if BP low ? Placed on renal diet -Consult nephrology for continuation of peritoneal dialysis. Appreciate their help. -Continue vancomycin, Zosyn, follow cultures, remains afebrile -Check sputum gram stain and culture. ? Remains afebrile -Plan is to discharge in the next 24 hours, if she can tolerate physical therapy, she tells me that she will has her and daughter at home ? Patient's stated that peritoneal fluid was clear. We will send sample for cytology and culture as well. 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
--- NOTE | 2022-06-11 12:16 | PC.SOCIAL ---
IMM update Imm updated with patient's . Copy of page 2 left at bedside. Copy in chart initialed, dated and timed.
[2022-06-11] MEDS: HYDROcodone-acetaminophen 5-325 mg Tablet 1 TAB PO (13:39)
[2022-06-11 17:21] LABS: Glucose Point of Care 213 mg/dL (70-110)
[2022-06-11 20:34] LABS: Glucose Point of Care 209 mg/dL (70-110)
[2022-06-12] VITALS (9 sets, daily range): BP systolic 132–163; BP diastolic 69–80; PULSE 66–80; RESP 14–18; TEMP 36.4–36.8; O2SAT 89–97
[2022-06-12] MEDS: linezolid premix 600 MG/300 ML PREMIX 300 MG IV (00:16)
[2022-06-12 03:59] LABS: Basophils % 0.4 %; Eosinophils # 0.2 10^3/uL (0.0-0.8); Eosinophils % 2.4 %; Hematocrit 28.4 % (37.0-47.0); Hemoglobin 8.4 g/dL (11.5-15.3); Lymphocytes # 0.7 10^3/uL (0.8-4.8); Lymphocytes % 9.1 %; Mean Corpuscular HGB Conc 29.6 g/dL (30.0-36.0); Mean Corpuscular Hemoglobin 29.1 pg (28.0-34.0); Mean Corpuscular Volume 98.3 fl (81-99); Mean Platelet Volume 10.4 fL (7.4-10.4); Monocytes # 1.2 10^3/uL (0.2-0.9); Monocytes % 15.5 %; Neutrophils # 5.36 10^3/uL (1.8-7.7); Neutrophils % 68.2 %; Nucleated Red Blood Cells % 0.5 %; Platelet Count 151 10^3/cmm (130-400); Red Blood Count 2.89 10^6/uL (4.1-5.3); Red Cell Distribution Width 15.9 % (12.1-15.1); White Blood Count 7.9 10^3/uL (4.0-10.0)
[2022-06-12 04:20] LABS: Alanine Aminotransferase 6 U/L (0-33); Albumin Level 3.1 g/dL (3.5-5.2); Alkaline Phosphatase 43 U/L (35-105); Anion Gap 16.3 (5-19); Aspartate Amino Transferase 17 U/L (0-32); Blood Urea Nitrogen 51 mg/dL (8-23); Calcium 9.2 mg/dL (8.5-10.5); Carbon Dioxide 29 mmol/L (22-29); Chloride 86 mmol/L (98-107); Globulin 2.8 g/dL (1.3-4.6); Glucose 144 mg/dL (65-115); Osmolality Calculated 278 mOsm/kg (285-295); Potassium 5.3 mmol/L (3.5-5.1); Sodium 126 mmol/L (136-145); Total Bilirubin 0.3 mg/dL (0.15-1.2); Total Protein 5.9 g/dL (6.6-8.7)
[2022-06-12 06:39] LABS: Glucose Point of Care 141 mg/dL (70-110)
[2022-06-12] MEDS: piperacillin-tazobactam 3.375 GM in sodium chloride 0.9% (plus) 50 ML IV (06:57)
[2022-06-12] MEDS: insulin lispro 100 unit/1 mL SUBCUT ×3 (09:09→17:20)
[2022-06-12] MEDS: heparin 5,000 unit/mL INJ 1 mL 5000 UNIT SUBCUT ×2 (09:09→19:54)
[2022-06-12] MEDS: calcium acetate 667 mg Capsule 1334 MG PO ×3 (09:10→19:54)
[2022-06-12] MEDS: pantoprazole DR 40 mg Tablet PO (09:10)
[2022-06-12] MEDS: lisinopril 20 mg Tablet PO (09:10)
[2022-06-12] MEDS: atorvastatin 40 mg Tablet 80 MG PO (09:10)
[2022-06-12] MEDS: carvedilol 25 mg Tablet PO ×2 (09:10→17:18)
[2022-06-12] MEDS: FUROsemide 40 mg Tablet 80 MG PO ×2 (09:10→17:19)
[2022-06-12] MEDS: venlafaxine ER (24HR) 150 mg Capsule PO (09:11)
[2022-06-12] MEDS: polyethylene glycol 3350 Pkt 17 gm PO (09:11)
[2022-06-12] MEDS: docusate sodium 100 mg Capsule PO ×2 (09:11→17:19)
[2022-06-12 11:22] LABS: Glucose Point of Care 153 mg/dL (70-110)
--- NOTE | 2022-06-12 12:03 | P.PN_ITS ---
Subjective Subjective: Patient was seen this morning, she feels a bit nauseous this morning, continues to feel weak, she is agreeable to go to retirement Vitals/I&O/Wt Last Vital Signs Temp 98.2 F 06/12/22 11:21 Pulse 79 06/12/22 11:21 Resp 17 06/12/22 11:21 BP 152/79 06/12/22 11:21 Pulse Ox 94 06/12/22 11:21 O2 Del Method 06/12/22 11:21 O2 Flow Rate 4 06/12/22 07:44 06/11/22 06/12/22 06/12/22 22:59 06:59 14:59 Intake Total 710 / 1310 420 / 1730 170 / 170 Balance 710 / 1310 420 / 1730 170 / 170 Physical Exam Const: COMMON NORMALS: no acute distress and patient oriented x3 Resp: COMMON NORMALS: normal respiratory effort, No retractions, No use of accessory muscles and clear to auscultation bilaterally AUSCULTATION: clear to auscultation bilaterally Cardio: COMMON NORMALS: regular rate, regular rhythm, S1 normal heart sound present and S2 normal heart sound present RATE: regular rate RHYTHM: regular rhythm HEART SOUNDS: S1 normal heart sound present and S2 normal heart sound present GI: COMMON NORMALS: Normal to inspection, nondistended, normoactive bowel sounds present, non-tender and no masses Extremity: COMMON NORMALS: no pedal edema NARRATIVE EXTREMITY EXAM: Left lower extremity in the cast Neuro: COMMON NORMALS: patient oriented x3 Psych: COMMON NORMALS: mental status grossly normal Urinary Catheter Management: Barreto: Cath Placed During This Visit: yes, but has since been removed by the nurse Reason for Continuing Indwelling Catheter: Perioperative Use in Selected Surgeries Urinary Catheter Date of Insertion: 06/06/22 Urinary Catheter Time of Insertion: 21:30 Date Urinary Catheter Removed: 06/11/22 Time Urinary Catheter Discontinued: 16:00 Data : 06/12/22 03:27 06/12/22 03:27 Micro: Microbiology 06/10/22 14:07 Gram Stain - Final Peritoneal Fluid 06/10/22 10:17 Urine Culture - Preliminary Urine,Voided Yeast species 06/06/22 18:10 Blood Culture - Final Blood NO GROWTH AFTER 5 DAYS 06/06/22 18:06 Blood Culture - Final Blood NO GROWTH AFTER 5 DAYS 06/10/22 14:18 MRSA Culture - Final Nose 06/10/22 10:17 Bacterial Antigens - Final Urine,Clean Catch A&P Assessment and plan (1) Blister over site of fracture of bone: (2) Peritoneal dialysis status: (3) Pneumonia: (4) Acute renal failure: Qualifiers: Acute renal failure type: unspecified Qualified Code(s): N17.9 - Acute kidney failure, unspecified (5) Hypertension: Qualifiers: Hypertension type: essential hypertension Qualified Code(s): I10 - Essential (primary) hypertension (6) Hyperlipidemia: Qualifiers: Hyperlipidemia type: unspecified Qualified Code(s): E78.5 - Hyperlipidemia, unspecified (7) CKD (chronic kidney disease): Qualifiers: Chronic kidney disease stage: stage 3 (moderate) Qualified Code(s): N18.3 - Chronic kidney disease, stage 3 (moderate) Plan #Trimalleolar ankle fracture status post tibial talocalcaneal arthrodesis with intramedullary nail to the left lower extremity #Status post fall, mechanical #Diabetes mellitus type 2 #Obstructive sleep apnea, noncompliant with CPAP due to intolerance #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 She tripped and fell as floor was slippery. Presented with unstable ankle fracture. It was reduced in the ER with conscious sedation and splinted. ? Patient is status post tibial talocalcaneal arthrodesis with intramedullary nail to left lower extremity -May use toe-touch for transfers, elevate foot while resting. ? EKG did not reveal any acute ischemic changes - Normal left ventricular size, systolic function and mildly ?increased wall thickness, with no regional wall motion ?abnormalities. Left ventricular ejection fraction is estimated ?at 65-70 %. Grade II diastolic dysfunction, moderately elevated ?filling pressures. Mild mitral stenosis . Moderate pulmonary hypertension present ? Chest x-ray unremarkable except mild cardiomegaly ? Sliding scale insulin moderate intensity ? Continue home Lantus ? Continue all home medications. -Stop minoxidil and doxazosin. Lisinopril 20 daily. Hold blood pressure medications if BP low ? Placed on renal diet -Consult nephrology for continuation of peritoneal dialysis. Appreciate their help. -De-escalate antibiotics to Augmentin -Cultures remain unremarkable ? Remains afebrile -Plan is to discharge for skilled rehab, as she has generalized weakness ? Patient's stated that peritoneal fluid was clear. We will send sample for cytology and culture as well. 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
--- NOTE | 2022-06-12 16:50 | PM.PN ---
Subjective Subjective: too weak to be discharged home awaiting rehab placement Vitals/I&O/Wt Last Vital Signs Temp 97.9 F 06/12/22 15:09 Pulse 66 06/12/22 15:09 Resp 17 06/12/22 15:09 BP 132/78 06/12/22 15:09 Pulse Ox 96 06/12/22 15:09 O2 Del Method 06/12/22 15:09 O2 Flow Rate 4 06/12/22 07:44 06/12/22 06/12/22 06/12/22 06:59 14:59 22:59 Intake Total 420 / 1730 410 / 410 Balance 420 / 1730 410 / 410 Physical Exam Const: OTHER: comfortable Urinary Catheter Management: Barreto: Cath Placed During This Visit: yes, but has since been removed by the nurse Reason for Continuing Indwelling Catheter: Perioperative Use in Selected Surgeries Urinary Catheter Date of Insertion: 06/06/22 Urinary Catheter Time of Insertion: 21:30 Date Urinary Catheter Removed: 06/11/22 Time Urinary Catheter Discontinued: 16:00 Data : 06/12/22 03:27 06/12/22 03:27 Micro: Microbiology 06/10/22 14:07 Gram Stain - Final Peritoneal Fluid Body Fluid Culture - Preliminary 06/10/22 10:17 Urine Culture - Preliminary Urine,Voided Yeast species 06/06/22 18:10 Blood Culture - Final Blood NO GROWTH AFTER 5 DAYS 06/06/22 18:06 Blood Culture - Final Blood NO GROWTH AFTER 5 DAYS 06/10/22 14:18 MRSA Culture - Final Nose A&P Assessment and plan (1) End stage renal disease: seen via telemedicine with assistance of RN at bedside Plan 1. ESRD on peritoneal dialysis. is performing cycler dialysis. Has set up all 1.5% today. Is dwelling with 1L icodextrin during day. He does not know how much fluid is removed with cycler. Uses weights at home. PD fluid is clear. no exit site issues per RN 2. Constipation, possible atelectasis. Still no BM, although she has flatus. Does not want additional laxative. 3. Ankle fracture, s/p surgical repair. Awaiting rehab placement 4. Hypertension, continue current medications 5. Diabetes 6. Mild hyponatremia, serum sodium lower. Fluid restrict, change to 1.5% and 2.5% solutions tomorrow 7. Anemia, Hb low. 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
[2022-06-12 16:56] LABS: Glucose Point of Care 222 mg/dL (70-110)
[2022-06-12] MEDS: amoxicillin-clav 875-125 mg Tablet 1 TAB PO (17:18)
[2022-06-12] MEDS: HYDROcodone-acetaminophen 5-325 mg Tablet 1 TAB PO (17:19)
[2022-06-13] VITALS (8 sets, daily range): BP systolic 146–166; BP diastolic 69–84; PULSE 80–85; RESP 16–18; TEMP 36.4–37.1; O2SAT 88–95
[2022-06-13 00:08] LABS: Glucose Point of Care 272 mg/dL (70-110)
[2022-06-13] MEDS: insulin lispro 100 unit/1 mL SUBCUT ×3 (00:11→23:24)
[2022-06-13 03:48] LABS: Basophils % 0.3 %; Eosinophils # 0.2 10^3/uL (0.0-0.8); Eosinophils % 2.4 %; Hematocrit 27.9 % (37.0-47.0); Hemoglobin 8.2 g/dL (11.5-15.3); Lymphocytes # 0.7 10^3/uL (0.8-4.8); Lymphocytes % 9.4 %; Mean Corpuscular HGB Conc 29.4 g/dL (30.0-36.0); Mean Corpuscular Volume 98.6 fl (81-99); Mean Platelet Volume 11.2 fL (7.4-10.4); Monocytes # 0.9 10^3/uL (0.2-0.9); Monocytes % 12.5 %; Neutrophils % 70.2 %; Nucleated Red Blood Cells # 0.1 /100WBC; Platelet Count 152 10^3/cmm (130-400); Red Blood Count 2.83 10^6/uL (4.1-5.3); Red Cell Distribution Width 15.9 % (12.1-15.1); White Blood Count 7.1 10^3/uL (4.0-10.0)
[2022-06-13 04:12] LABS: Alanine Aminotransferase < 5 U/L (0-33); Alkaline Phosphatase 45 U/L (35-105); Anion Gap 17.2 (5-19); Aspartate Amino Transferase 14 U/L (0-32); Blood Urea Nitrogen 47 mg/dL (8-23); Calcium 9.3 mg/dL (8.5-10.5); Carbon Dioxide 28 mmol/L (22-29); Chloride 85 mmol/L (98-107); Glucose 146 mg/dL (65-115); Osmolality Calculated 277 mOsm/kg (285-295); Potassium 4.2 mmol/L (3.5-5.1); Sodium 126 mmol/L (136-145); Total Bilirubin 0.3 mg/dL (0.15-1.2)
[2022-06-13 06:19] LABS: Slide Review Slide Review Perform
[2022-06-13 06:38] LABS: Glucose Point of Care 130 mg/dL (70-110)
[2022-06-13] MEDS: carvedilol 25 mg Tablet PO ×2 (10:08→17:36)
[2022-06-13] MEDS: calcium acetate 667 mg Capsule 1334 MG PO ×3 (10:08→21:13)
[2022-06-13] MEDS: amoxicillin-clav 875-125 mg Tablet 1 TAB PO ×2 (10:08→17:36)
[2022-06-13] MEDS: FUROsemide 40 mg Tablet 80 MG PO ×2 (10:09→17:36)
[2022-06-13] MEDS: docusate sodium 100 mg Capsule PO ×2 (10:09→17:37)
[2022-06-13] MEDS: pantoprazole DR 40 mg Tablet PO ×2 (10:09→17:36)
[2022-06-13] MEDS: atorvastatin 40 mg Tablet 80 MG PO (10:09)
[2022-06-13] MEDS: lisinopril 20 mg Tablet PO (10:10)
[2022-06-13] MEDS: venlafaxine ER (24HR) 150 mg Capsule PO (10:10)
--- NOTE | 2022-06-13 10:10 | PM.PN ---
Subjective Subjective: had several large BMs last night CCPD was uneventful she is awaiting transfer to SNF Vitals/I&O/Wt Last Vital Signs Temp 98.2 F 06/13/22 08:00 Pulse 85 06/13/22 08:30 Resp 17 06/13/22 08:30 BP 163/84 06/13/22 08:00 Pulse Ox 92 06/13/22 08:30 O2 Del Method 06/13/22 08:30 O2 Flow Rate 4 06/13/22 08:30 06/12/22 06/13/22 06/13/22 22:59 06:59 14:59 Intake Total 240 / 650 Balance 240 / 650 Physical Exam Const: COMMON NORMALS: no acute distress and alert Neuro: SENSORIUM/ORIENTATION: Yes alert Urinary Catheter Management: Barreto: Cath Placed During This Visit: yes, but has since been removed by the nurse Reason for Continuing Indwelling Catheter: Perioperative Use in Selected Surgeries Urinary Catheter Date of Insertion: 06/06/22 Urinary Catheter Time of Insertion: 21:30 Date Urinary Catheter Removed: 06/11/22 Time Urinary Catheter Discontinued: 16:00 Data : 06/13/22 02:42 06/13/22 02:42 Micro: Microbiology 06/10/22 14:07 Gram Stain - Final Peritoneal Fluid Body Fluid Culture - Preliminary 06/10/22 10:17 Urine Culture - Preliminary Urine,Voided Yeast species A&P Assessment and plan (1) End stage renal disease: seen via telemedicine with assistance of RN at bedside Plan 1. ESRD on peritoneal dialysis. is performing cycler dialysis. All 1.5% last evening, dwelling with 1L icodextrin during day. He does not know how much fluid is removed with cycler. Uses weights at home. PD fluid is clear. no exit site issues per RN 2. Constipation, resolved. 3. Ankle fracture, s/p surgical repair. Awaiting rehab placement 4. Hypertension, continue current medications 5. Diabetes 6. Hyponatremia, serum sodium lower. Asymptomatic, likely due to fluid overload. Fluid restrict, change to all 2.5% PD solutions 7. Anemia, Hb low. 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
[2022-06-13] MEDS: heparin 5,000 unit/mL INJ 1 mL 5000 UNIT SUBCUT ×2 (10:13→21:13)
--- NOTE | 2022-06-13 10:31 | PM.DCS ---
Discharge Providers Date of Admission: 06/06/22 17:39 Date of Discharge: June 13, 2022 Attending Provider at Admission: Sylvia Villeda MD Attending Provider at Discharge: Roby Wilson MD Primary Care Provider: Mana Barragan MD Diagnoses at Discharge Discharge Diagnosis (1) End stage renal disease: Status: Acute Reason for Visit Reason for Visit: Open Ankle Fracture Hospital Course Hospital Course Hailey Vasquez is a 71-year-old female with history of ESRD on peritoneal dialysis, depression, diabetes, diastolic heart failure, hyperlipidemia, hypertension, renal malignancy, macular degeneration, sleep apnea not compliant with CPAP presented to the ER today after having a fall. #Trimalleolar ankle fracture status post tibial talocalcaneal arthrodesis with intramedullary nail to the left lower extremity -reduced in ER, then splinted -status post tibial talocalcaneal arthrodesis with intramedullary nail to left lower extremity -May use toe-touch for transfers, elevate foot while resting, follow up with Dr. Urban -d/c to [facility] for rehab #Diabetes mellitus type 2 -as above - #Obstructive sleep apnea, noncompliant with CPAP due to intolerance #Chronically oxygen dependent on 2 L nasal cannula #History of diastolic heart failure #End-stage renal disease, on peritoneal dialysis #Macular degeneration #History of renal malignancy, status unknown at this time #Hypertension #Hyperlipidemia #Left lower lobe pneumonia -treated with broad spectrum antibiotics, cultures overall have been negative, will discharge in Augmentin Physical Exam Const: COMMON NORMALS: no acute distress and patient oriented x3 Resp: COMMON NORMALS: normal respiratory effort, No retractions, No use of accessory muscles and clear to auscultation bilaterally AUSCULTATION: clear to auscultation bilaterally Cardio: COMMON NORMALS: regular rate, regular rhythm, S1 normal heart sound present and S2 normal heart sound present RATE: regular rate RHYTHM: regular rhythm HEART SOUNDS: S1 normal heart sound present and S2 normal heart sound present GI: COMMON NORMALS: Normal to inspection, nondistended, normoactive bowel sounds present, non-tender and no masses Extremity: COMMON NORMALS: no pedal edema Neuro: COMMON NORMALS: patient oriented x3 Psych: COMMON NORMALS: mental status grossly normal Urinary Catheter Management: Barreto: Cath Placed During This Visit: yes, but has since been removed by the nurse Reason for Continuing Indwelling Catheter: Perioperative Use in Selected Surgeries Urinary Catheter Date of Insertion: 06/06/22 Urinary Catheter Time of Insertion: 21:30 Date Urinary Catheter Removed: 06/11/22 Time Urinary Catheter Discontinued: 16:00 Discharge Data Studies Completed and Pending Completed Studies During Hospitalization Category Date Time Status XR ankle LT 2V [id number] Routine Exams 06/09/22 Completed XR ankle LT 2V [id number] Stat Exams 06/06/22 15:54 Completed XR ankle LT min 3V* [id number] Routine Exams 06/10/22 08:33 Completed XR ankle LT min 3V* [id number] Stat Exams 06/06/22 14:31 Completed XR chest 1V portable [id number] Routine Exams 06/10/22 07:36 Completed XR chest 1V portable [id number] Stat Exams 06/06/22 14:31 Completed XR tibia fibula LT 2V [id number] Stat Exams 06/06/22 14:31 Completed CV. echo complete* [id number] Routine Ultrasound 06/06/22 21:06 Completed Pending at discharge Category Date Time Status Body Fluid Culture & GS Stat Lab 06/10/22 14:07 Results Complete Blood Count w/Auto AM LABS Lab 06/14/22 04:00 Ordered Comprehensive Metabolic Panel AM LABS Lab 06/14/22 04:00 Ordered SARS Covid-2 Antigen Routine Lab 06/13/22 10:21 Uncollected Sputum Culture and Gram Stain Stat Lab 06/10/22 11:48 Uncollected Urine Culture Routine Lab 06/10/22 10:17 Results Radiology Impressions Tibia/Fibula X-Ray 06/06/22 14:31 Impression: Negative for fracture of the proximal two thirds of left tibia and fibula. Chest X-Ray 06/10/22 07:36 IMPRESSION: New left lower lobe infiltrate. Ankle X-Ray 06/10/22 08:33 IMPRESSION: Distal tibial fixation with a stable trimalleolar fracture. Laboratory Results WBC 7.1 10^3/uL (4.0-10.0) 06/13/22 02:42 RBC 2.83 10^6/uL (4.1-5.3) L 06/13/22 02:42 Hgb 8.2 g/dL (11.5-15.3) L 06/13/22 02:42 Hct 27.9 % (37.0-47.0) L 06/13/22 02:42 MCV 98.6 fl (81-99) 06/13/22 02:42 MCH 29.0 pg (28.0-34.0) 06/13/22 02:42 MCHC 29.4 g/dL (30.0-36.0) L 06/13/22 02:42 RDW 15.9 % (12.1-15.1) H 06/13/22 02:42 Plt Count 152 10^3/cmm (130-400) 06/13/22 02:42 MPV 11.2 fL (7.4-10.4) H 06/13/22 02:42 Neut % (Auto) 70.2 % 06/13/22 02:42 Lymph % (Auto) 9.4 % 06/13/22 02:42 [place] % (Auto) 12.5 % 06/13/22 02:42 Eos % (Auto) 2.4 % 06/13/22 02:42 Baso % (Auto) 0.3 % 06/13/22 02:42 Neut # (Auto) 5.00 10^3/uL (1.8-7.7) 06/13/22 02:42 Lymph # (Auto) 0.7 10^3/uL (0.8-4.8) L 06/13/22 02:42 [place] # (Auto) 0.9 10^3/uL (0.2-0.9) 06/13/22 02:42 Eos # (Auto) 0.2 10^3/uL (0.0-0.8) 06/13/22 02:42 Baso # (Auto) 0.0 10^3/uL (0.0-0.1) 06/13/22 02:42 Nucleated RBC % (auto) 1.0 % 06/13/22 02:42 Nucleated RBCs # 0.1 /100WBC 06/13/22 02:42 PT 14.60 SECONDS (12.1-14.9) 06/07/22 01:50 INR 1.11 (0.8-1.2) 06/07/22 01:50 APTT 30.3 SECONDS (23.9-36.7) 06/06/22 14:31 Sodium 126 mmol/L (136-145) L 06/13/22 02:42 Potassium 4.2 mmol/L (3.5-5.1) 06/13/22 02:42 Chloride 85 mmol/L (98-107) L 06/13/22 02:42 Carbon Dioxide 28 mmol/L (22-29) 06/13/22 02:42 Anion Gap 17.2 (5-19) 06/13/22 02:42 BUN 47 mg/dL (8-23) H 06/13/22 02:42 Creatinine 9.0 mg/dL (0.5-0.9) H* 06/13/22 02:42 GFR Calculation Not Reportable 06/13/22 02:42 Glucose 146 mg/dL (65-115) H 06/13/22 02:42 POC Glucose 130 mg/dL (70-110) H 06/13/22 06:35 Estimat Average Glucose 117 06/06/22 14:31 Hemoglobin A1c 5.7 % (4.0-6.0) 06/06/22 14:31 Calculated Osmolality 277 mOsm/kg (285-295) L 06/13/22 02:42 Calcium 9.3 mg/dL (8.5-10.5) 06/13/22 02:42 Phosphorus 5.7 mg/dL (2.5-4.5) H 06/10/22 05:37 Magnesium 2.5 mg/dL (1.7-2.3) H 06/11/22 04:10 Iron 34 ug/dL (37-145) L 06/09/22 04:30 TIBC 149 mcg/dl 06/09/22 04:30 % Saturation 22.8 % (20-50) 06/09/22 04:30 Unsat Iron Binding 115 ug/dL (112-347) 06/09/22 04:30 Ferritin 949 ng/mL (15-150) H 06/09/22 04:30 Total Bilirubin 0.3 mg/dL (0.15-1.2) 06/13/22 02:42 AST 14 U/L (0-32) 06/13/22 02:42 ALT < 5 U/L (0-33) 06/13/22 02:42 Alkaline Phosphatase 45 U/L (35-105) 06/13/22 02:42 NT-Pro-B Natriuret Pep 99355 pg/mL (0-125) H 06/06/22 14:31 NT-Pro-B Natriuret Pep Cancelled 06/06/22 14:31 Total Protein 6.0 g/dL (6.6-8.7) L 06/13/22 02:42 Albumin 3.0 g/dL (3.5-5.2) L 06/13/22 02:42 Globulin 3.0 g/dL (1.3-4.6) 06/13/22 02:42 Procalcitonin 0.67 ng/mL (0-0.5) H 06/10/22 05:37 Urine Color Yellow (Yellow) 06/10/22 10:17 Urine Appearance Cloudy (CLEAR) A 06/10/22 10:17 Urine pH 6 (5-7) 06/10/22 10:17 Ur Specific [place] 1.010 (1.005-1.030) 06/10/22 10:17 Urine Protein 3+ (Negative) H 06/10/22 10:17 Urine Glucose (UA) Trace (Normal) H 06/10/22 10:17 Urine Ketones 1+ (Negative) H 06/10/22 10:17 Urine Blood 3+ (Negative) H 06/10/22 10:17 Urine Nitrate Negative (Negative) 06/10/22 10:17 Urine Bilirubin Neg (Negative) 06/10/22 10:17 Urine Urobilinogen Norm mg/dL (Negative) 06/10/22 10:17 Ur Leukocyte Esterase 2+ (Negative) H 06/10/22 10:17 Urine RBC 80-100 /hpf (0-2) H 06/10/22 10:17 Urine WBC Too numerous to cnt /hpf (0-5) H 06/10/22 10:17 Ur Squamous Epith Cells Rare /hpf (0-5) 06/10/22 10:17 Amorphous Sediment Not Reportable 06/10/22 10:17 Urine Bacteria 2+ /hpf (NONE) H 06/10/22 10:17 Urine Yeast 2+ /hpf H 06/10/22 10:17 Fluid pH 8.0 06/10/22 14:07 Fluid Total Protein 0.2 g/dL 06/10/22 14:07 Fluid Albumin 0.2 g/dL 06/10/22 14:07 Vitals Last Vital Signs Temp 98.2 F 06/13/22 08:00 Pulse 85 06/13/22 08:30 Resp 17 06/13/22 08:30 BP 163/84 06/13/22 08:00 Pulse Ox 92 06/13/22 08:30 O2 Del Method 06/13/22 08:30 O2 Flow Rate 4 06/13/22 08:30 Discharge Plan Discharge Patient Disposition: Xfer SNF Condition: Stable Prescriptions: New polyethylene glycol 3350 17 gram Powder In Packet 17 g PO DAILY PRN (Reason: Constipation) 14 Days Qty: 10 0RF amoxicillin-pot clavulanate 875-125 mg tablet 1 tab PO BID 2 Days Qty: 4 0RF aspirin 81 mg capsule 81 mg PO DAILY 30 Days Qty: 30 0RF hydrocodone-acetaminophen 5-325 mg Tablet 1 tab PO Q4H PRN (Reason: Moderate Pain) 7 Days Qty: 42 0RF Protonix 40 mg tablet,delayed release (DR/EC) 40 mg PO BID 30 Days Qty: 60 0RF Carafate 1 gram tablet 1 g PO BID 30 Days Qty: 60 0RF Continued (DME) Bed side commode with rails See Rx Instructions .Route .MEDSUPPLY Qty: 1 0RF Rx Instructions: As directed calcium acetate 667 mg tablet 1,334 mg PO TID Rx Instructions: take 2 capsules with meals and 1 capsule with snacks budesonide-formoterol [Symbicort] 160-4.5 mcg/actuation HFA aerosol inhaler 2 inh inhalation BID Qty: 10.2 0RF albuterol sulfate 90 mcg/actuation HFA aerosol inhaler 2 puff inhalation Q6H PRN (Reason: shortness of breath or wheezing) Qty: 8.5 0RF promethazine 25 mg tablet 25 mg PO Q6H PRN (Reason: Nausea) cholecalciferol (vitamin D3) 10 mcg (400 unit) tablet 10 mcg PO DAILY cyanocobalamin (vitamin B-12) 100 mcg tablet 100 mcg PO DAILY docusate sodium 100 mg capsule 100 mg PO BID furosemide [Lasix] 80 mg tablet 80 mg PO BID pantoprazole 40 mg tablet,delayed release (DR/EC) 40 mg PO DAILY cetirizine 10 mg tablet See Rx Instructions .ROUTE .COMPLEX Qty: 30 4RF Dose Instruction: TAKE 1/2 TABLET BY MOUTH DAILY As Needed FOR allergy symptoms Rx Instructions: TAKE 1/2 TABLET BY MOUTH DAILY As Needed FOR allergy symptoms ferrous sulfate [FeroSul] 325 mg (65 mg iron) tablet See Rx Instructions .ROUTE .COMPLEX Qty: 30 0RF Dose Instruction: take one tablet BY MOUTH DAILY with BREAKFAST Rx Instructions: take one tablet BY MOUTH DAILY with BREAKFAST carvedilol 12.5 mg tablet 25 mg PO BID venlafaxine 150 mg capsule,extended release 24hr 150 mg PO DAILY rosuvastatin 40 mg tablet 40 mg PO DAILY multivitamin Tablet 1 tab PO DAILY ondansetron HCl 8 mg Tablet 8 mg PO Q8H PRN (Reason: Nausea) Changed lisinopril 20 mg tablet 20 mg PO DAILY 30 Days Qty: 30 0RF Novolin R Regular U-100 Insuln 100 unit/mL solution See Rx Instructions .ROUTE .COMPLEX PRN (Reason: hyperglycemia) Qty: 20 3RF Rx Instructions: Inject 3 times a day, after meals, based on sliding scale provided [place] [employer] U-300 Insulin 300 unit/mL (1.5 mL) insulin pen See Rx Instructions .ROUTE .COMPLEX Qty: 4.5 1RF Dose Instruction: inject 15 units SUBCUTANEOUSLY DAILY Rx Instructions: inject 10 units SUBCUTANEOUSLY DAILY melatonin 3 mg capsule 3 mg PO BEDTIME 30 Days Qty: 0 0RF Discontinued acetaminophen 500 mg tablet 1,000 mg PO Q6H PRN (Reason: Pain) doxazosin 2 mg tablet 2 mg PO DAILY minoxidil 2.5 mg tablet 5 mg PO DAILY Discharge Orders: Discharge Order (Routine); Ordered 06/13/22 Ordered By: Roby Wilson Other Ambulatory Orders: DME: Oxygen (Order) Location: None Selected Ordered By: Roby Wilson Referrals: [facility] [Outside] Ed Miller DO [Physician] - 1 month (anemia, egd) Heber Urban DPM [Physician] - 06/21/22 10:15 am Liliana Sharp MD [Physician] - 4-7 days (Will contact patient with appointment information) Mana Barragan MD [Primary Care Provider] - 4-7 days (Will contact patient with appointment information) Discharge Diet: Usual diet Discharge Activity: Limit activity as instructed Patient Instructions: Hydrocodone/Acetaminophen (By mouth), Amoxicillin/Clavulanate Potassium (By mouth), Pantoprazole (By mouth), Polyethylene Glycol 3350 (By mouth), Pain Management Activity Restrictions/Additional Instructions: Toe-touch for transfers Elevate left foot while resting Keep postoperative dressing and short leg cast clean, dry and intact, will be changing this every 2 weeks in clinic.? No at home dressing changes. Follow-up in podiatry clinic 06/21/2022 at 10:15 AM for repeat x-ray and dressing/cast change. -If you have bloody or black stools please go to the emergency room -Please have [facility] recheck hemoglobin in 24 hours, -If hemoglobin drops below 7, please bring back to hospital for transfusion -Monitor blood sugars closely, Toujeo has been decreased to 10 units subcu daily -NovoLog low-dose sliding scale, 3 times daily, after meals, based on sign scale provided Discharge Attestations Time Spent in Discharge Care*: less than 30 min Status at Discharge: Cognitive status at discharge: cognitively intact, Behavioral status at discharge: cooperative, Quality Metrics Clinical Quality Measures [ No reported AMI, CVA or VTE this stay] Coding Level of Care Code Acute Chg MAL HI note Diagnoses End stage renal disease N18.6
[2022-06-13] MEDS: epoetin alfa 1000 Unit/0.05 mL (ESRD) 20000 UNIT SUBCUT (11:06)
[2022-06-13] MEDS: sucralfate 1 gm Tablet PO ×3 (11:07→21:13)
[2022-06-13 11:09] LABS: Glucose Point of Care 209 mg/dL (70-110)
[2022-06-13 12:18] LABS: SARS Covid-2 Antigen negative (Negative)
--- NOTE | 2022-06-13 12:51 | PC.SOCIAL ---
IMM Updated Updated pt on IMM. No questions voiced. Provided pt a copy. Initialed, dated, & timed copy in chart.
--- NOTE | 2022-06-13 16:30 | PC.OT ---
OT TREATMENT HELD TODAY DUE TO SCHEDULED PATIENT DISCHARGE
[2022-06-13 16:52] LABS: Glucose Point of Care 131 mg/dL (70-110)
[2022-06-13] MEDS: HYDROcodone-acetaminophen 5-325 mg Tablet 1 TAB PO (17:36)
[2022-06-13 23:15] LABS: Glucose Point of Care 256 mg/dL (70-110)
[2022-06-14] VITALS (9 sets, daily range): BP systolic 176–197; BP diastolic 79–99; PULSE 78–87; RESP 14–22; TEMP 36.6–36.9; O2SAT 92–98
[2022-06-14 00:17] LABS: Glucose Point of Care 239 mg/dL (70-110)
[2022-06-14 04:29] LABS: Basophils % 0.4 %; Eosinophils # 0.1 10^3/uL (0.0-0.8); Eosinophils % 1.6 %; Hematocrit 28.9 % (37.0-47.0); Hemoglobin 8.8 g/dL (11.5-15.3); Lymphocytes # 0.7 10^3/uL (0.8-4.8); Mean Corpuscular HGB Conc 30.4 g/dL (30.0-36.0); Mean Corpuscular Hemoglobin 29.7 pg (28.0-34.0); Mean Corpuscular Volume 97.6 fl (81-99); Mean Platelet Volume 10.9 fL (7.4-10.4); Monocytes # 0.9 10^3/uL (0.2-0.9); Neutrophils # 4.43 10^3/uL (1.8-7.7); Nucleated Red Blood Cells % 0.6 %; Platelet Count 151 10^3/cmm (130-400); Red Blood Count 2.96 10^6/uL (4.1-5.3); Red Cell Distribution Width 15.9 % (12.1-15.1); White Blood Count 6.7 10^3/uL (4.0-10.0)
[2022-06-14 04:49] LABS: Alanine Aminotransferase 7 U/L (0-33); Albumin Level 3.1 g/dL (3.5-5.2); Alkaline Phosphatase 48 U/L (35-105); Anion Gap 18.3 (5-19); Aspartate Amino Transferase 16 U/L (0-32); Blood Urea Nitrogen 46 mg/dL (8-23); Calcium 9.7 mg/dL (8.5-10.5); Carbon Dioxide 28 mmol/L (22-29); Chloride 87 mmol/L (98-107); Globulin 3.2 g/dL (1.3-4.6); Glucose 158 mg/dL (65-115); Osmolality Calculated 283 mOsm/kg (285-295); Potassium 4.3 mmol/L (3.5-5.1); Sodium 129 mmol/L (136-145); Total Bilirubin 0.3 mg/dL (0.15-1.2); Total Protein 6.3 g/dL (6.6-8.7)
[2022-06-14 06:29] LABS: Glucose Point of Care 128 mg/dL (70-110)
[2022-06-14] MEDS: FUROsemide 40 mg Tablet 80 MG PO ×2 (09:45→17:43)
[2022-06-14] MEDS: calcium acetate 667 mg Capsule 1334 MG PO ×3 (09:45→20:16)
[2022-06-14] MEDS: sucralfate 1 gm Tablet PO ×4 (09:45→21:50)
[2022-06-14] MEDS: atorvastatin 40 mg Tablet 80 MG PO (09:45)
[2022-06-14] MEDS: carvedilol 25 mg Tablet PO (09:45)
[2022-06-14] MEDS: pantoprazole DR 40 mg Tablet PO ×2 (09:46→17:42)
[2022-06-14] MEDS: heparin 5,000 unit/mL INJ 1 mL 5000 UNIT SUBCUT ×2 (09:46→20:17)
[2022-06-14] MEDS: docusate sodium 100 mg Capsule PO ×2 (09:46→17:43)
[2022-06-14] MEDS: lisinopril 20 mg Tablet PO (09:46)
[2022-06-14] MEDS: venlafaxine ER (24HR) 150 mg Capsule PO (09:46)
[2022-06-14] MEDS: amoxicillin-clav 875-125 mg Tablet 1 TAB PO ×2 (09:46→17:42)
--- NOTE | 2022-06-14 09:59 | PM.PN ---
Subjective Subjective: This is progress note from 06/13/2022 patient was seen this morning, doing well, wondering when she is good to be discharged, I advised her that she has been accepted at a local [place] [facility] facility Vitals/I&O/Wt Last Vital Signs Temp 97.8 F 06/14/22 08:00 Pulse 87 06/14/22 08:00 Resp 15 06/14/22 08:00 BP 188/82 06/14/22 08:00 Pulse Ox 93 06/14/22 08:00 O2 Del Method 06/14/22 08:00 O2 Flow Rate 4 06/14/22 08:00 06/13/22 06/14/22 06/14/22 22:59 06:59 14:59 Intake Total 340 / 460 0 / 460 240 / 240 Balance 340 / 460 0 / 460 240 / 240 Physical Exam Const: COMMON NORMALS: no acute distress and patient oriented x3 Resp: COMMON NORMALS: normal respiratory effort, No retractions, No use of accessory muscles and clear to auscultation bilaterally AUSCULTATION: clear to auscultation bilaterally Cardio: COMMON NORMALS: regular rate, regular rhythm, S1 normal heart sound present and S2 normal heart sound present RATE: regular rate RHYTHM: regular rhythm HEART SOUNDS: S1 normal heart sound present and S2 normal heart sound present GI: COMMON NORMALS: Normal to inspection, nondistended, normoactive bowel sounds present and non-tender Neuro: COMMON NORMALS: patient oriented x3 Psych: COMMON NORMALS: mental status grossly normal Urinary Catheter Management: Barreto: Cath Placed During This Visit: yes, but has since been removed by the nurse Reason for Continuing Indwelling Catheter: Perioperative Use in Selected Surgeries Urinary Catheter Date of Insertion: 06/06/22 Urinary Catheter Time of Insertion: 21:30 Date Urinary Catheter Removed: 06/11/22 Time Urinary Catheter Discontinued: 16:00 Data : 06/14/22 02:40 06/14/22 02:40 Micro: Microbiology 06/10/22 14:07 Gram Stain - Final Peritoneal Fluid Body Fluid Culture - Preliminary A&P Assessment and plan (1) Blister over site of fracture of bone: (2) Peritoneal dialysis status: (3) Pneumonia: (4) Acute renal failure: Qualifiers: Acute renal failure type: unspecified Qualified Code(s): N17.9 - Acute kidney failure, unspecified (5) Hypertension: Qualifiers: Hypertension type: essential hypertension Qualified Code(s): I10 - Essential (primary) hypertension (6) Hyperlipidemia: Qualifiers: Hyperlipidemia type: unspecified Qualified Code(s): E78.5 - Hyperlipidemia, unspecified (7) CKD (chronic kidney disease): Qualifiers: Chronic kidney disease stage: stage 3 (moderate) Qualified Code(s): N18.3 - Chronic kidney disease, stage 3 (moderate) Plan #Trimalleolar ankle fracture status post tibial talocalcaneal arthrodesis with intramedullary nail to the left lower extremity #Status post fall, mechanical #Diabetes mellitus type 2 #Obstructive sleep apnea, noncompliant with CPAP due to intolerance #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 She tripped and fell as floor was slippery. Presented with unstable ankle fracture. It was reduced in the ER with conscious sedation and splinted. ? Patient is status post tibial talocalcaneal arthrodesis with intramedullary nail to left lower extremity -May use toe-touch for transfers, elevate foot while resting. ? EKG did not reveal any acute ischemic changes - Normal left ventricular size, systolic function and mildly ?increased wall thickness, with no regional wall motion ?abnormalities. Left ventricular ejection fraction is estimated ?at 65-70 %. Grade II diastolic dysfunction, moderately elevated ?filling pressures. Mild mitral stenosis . Moderate pulmonary hypertension present ? Chest x-ray unremarkable except mild cardiomegaly ? Sliding scale insulin moderate intensity ? Continue home Lantus ? Continue all home medications. -Stop minoxidil and doxazosin. Lisinopril 20 daily. Hold blood pressure medications if BP low ? Placed on renal diet -Consult nephrology for continuation of peritoneal dialysis. Appreciate their help. -De-escalate antibiotics to Augmentin -Cultures remain unremarkable ? Remains afebrile -Plan is to discharge for skilled rehab, as she has generalized weakness ? Patient's stated that peritoneal fluid was clear. We will send sample for cytology and culture as well. -Hemoglobin 8.4, acute on chronic anemia, monitor -Hyponatremia, serum sodium 124, acute on chronic, monitor Full code DVT prophylaxis: Heparin SQ twice daily Attestations Medical Necessity Statement*: Will hopefully discharge today Coding Level of Care Code Acute Vb Net Developer for Chg Fwd Diagnoses Blister over site of fracture of bone Peritoneal dialysis status Z99.2 Pneumonia J18.9 Acute renal failure N17.9 Acute renal failure type: unspecified Hypertension I10 Hypertension type: essential hypertension Hyperlipidemia E78.5 Hyperlipidemia type: unspecified CKD (chronic kidney disease) N18.3 Chronic kidney disease stage: stage 3 (moderate)
[2022-06-14] MEDS: HYDROcodone-acetaminophen 5-325 mg Tablet 1 TAB PO ×2 (10:32→20:16)
[2022-06-14 11:21] LABS: Glucose Point of Care 169 mg/dL (70-110)
[2022-06-14] MEDS: insulin lispro 100 unit/1 mL SUBCUT ×2 (12:49→21:49)
--- NOTE | 2022-06-14 12:50 | PM.PN ---
Subjective Subjective: looks much better. sitting up eating. mild pain in leg Vitals/I&O/Wt Last Vital Signs Temp 98.3 F 06/14/22 12:00 Pulse 85 06/14/22 12:00 Resp 16 06/14/22 12:00 BP 188/79 06/14/22 12:00 Pulse Ox 94 06/14/22 12:00 O2 Del Method 06/14/22 12:00 O2 Flow Rate 4 06/14/22 08:00 06/13/22 06/14/22 06/14/22 22:59 06:59 14:59 Intake Total 340 / 460 0 / 460 240 / 240 Balance 340 / 460 0 / 460 240 / 240 Physical Exam Const: COMMON NORMALS: no acute distress and alert Neuro: SENSORIUM/ORIENTATION: Yes alert Urinary Catheter Management: Barreto: Cath Placed During This Visit: yes, but has since been removed by the nurse Reason for Continuing Indwelling Catheter: Perioperative Use in Selected Surgeries Urinary Catheter Date of Insertion: 06/06/22 Urinary Catheter Time of Insertion: 21:30 Date Urinary Catheter Removed: 06/11/22 Time Urinary Catheter Discontinued: 16:00 Data : 06/14/22 02:40 06/14/22 02:40 Micro: Microbiology 06/10/22 14:07 Gram Stain - Final Peritoneal Fluid Body Fluid Culture - Preliminary A&P Assessment and plan (1) End stage renal disease: seen via telemedicine with assistance of RN at bedside Plan 1. ESRD on peritoneal dialysis. is performing cycler dialysis. All 1.5% last evening, dwelling with 1L icodextrin during day. 2. Constipation, resolved. 3. Ankle fracture, s/p surgical repair. Awaiting rehab placement 4. Hypertension, blood pressure higher. Will increase carvedilol. 5. Diabetes 6. Hyponatremia, improved. Asymptomatic, likely due to fluid overload. Fluid restrict, change to all 2.5% PD solutions 7. Anemia, Hb low. Iron replete. Redosed epogen yesterday. Dose is 20,000 un SQ twice weekly. Daughter or will perform CCPD tonight. If not able, will change to CAPD (hospital RN performs manual exchanges.) Awaiting rehab placement Attestations Medical Necessity Statement*: see above Time Spent in Patient Care: 16 - 35 minutes Coding Level of Care Code Acute Assembling Motor Builder for Chg Fwd Diagnoses End stage renal disease N18.6
[2022-06-14 13:55] LABS: Hepatitis B Core AB, Total Non-Reactive (Nonreactive); Hepatitis B Surface AB 34.4 (11.5-1000); Hepatitis B Surface Antigen Non-Reactive (Nonreactive)
--- NOTE | 2022-06-14 15:28 | PC.OT ---
OT TREATMENT HELD PATIENT IS SCHEDULED FOR DISCHARGE TODAY
[2022-06-14 17:28] LABS: Glucose Point of Care 123 mg/dL (70-110)
[2022-06-14] MEDS: carvedilol 25 mg Tablet 37.5 MG PO (17:41)
[2022-06-14] MEDS: Dianeal low Ca w/2.5% dex 2,000 mL Bag 2000 ML INTRAPERIT (20:45)
[2022-06-15] VITALS (7 sets, daily range): BP systolic 153–177; BP diastolic 76–101; PULSE 64–80; RESP 14–18; TEMP 36.4–36.7; O2SAT 91–98
[2022-06-15] MEDS: Dianeal low Ca w/2.5% dex 2,000 mL Bag 2000 ML INTRAPERIT ×4 (00:59→14:09)
[2022-06-15] MEDS: HYDROcodone-acetaminophen 5-325 mg Tablet 1 TAB PO ×2 (01:01→08:53)
--- NOTE | 2022-06-15 01:17 | PHA.FALL ---
A Pharmacy Consult Was Conducted For Hailey Vasquez Due To: Juares Fall Scale Risk Level: High Fall Risk On 06/14/22 20:00 And A Medication Fall Risk Score Greater Than 10. The Recommendations Are As Follows: Carvedilol ANNA: 1,2,3,4,5,9,10 Lisinopril ANNA: 1,3,4,5,8,9 Promethazine ANNA: 1 Venlafaxine ANNA: 1,4,7 Carvedilol ANNA: 1,2,3,4,5,9,10 Furosemide ANNA: 3,4 Medications which cause/contribute to: 1= sedation/fatigue/lethargy 2= decreased alertness 3= postural/orthostatic hypotension 4= dizziness 5= decreased neuromuscular function/ataxia 6=decreased memory/cognitive impairment 7= blurred vision 8= confusion 9= arrhythmias 10= syncope 11= anemia
--- NOTE | 2022-06-15 05:44 | PC.NURSE ---
Pt had 3 rounds of PD administered this shift w/outpts 1999,1999,2524. Pt tolerated PD well.
[2022-06-15] MEDS: sucralfate 1 gm Tablet PO ×2 (06:01→12:00)
[2022-06-15 06:29] LABS: Glucose Point of Care 196 mg/dL (70-110)
[2022-06-15] MEDS: promethazine 25 mg Tablet PO (08:53)
[2022-06-15] MEDS: insulin lispro 100 unit/1 mL SUBCUT ×2 (08:53→11:59)
[2022-06-15] MEDS: carvedilol 25 mg Tablet 37.5 MG PO (08:54)
[2022-06-15] MEDS: heparin 5,000 unit/mL INJ 1 mL 5000 UNIT SUBCUT (08:55)
[2022-06-15] MEDS: calcium acetate 667 mg Capsule 1334 MG PO ×2 (08:55→14:11)
[2022-06-15] MEDS: amoxicillin-clav 875-125 mg Tablet 1 TAB PO (08:55)
[2022-06-15] MEDS: venlafaxine ER (24HR) 150 mg Capsule PO (08:55)
[2022-06-15] MEDS: docusate sodium 100 mg Capsule PO (08:56)
[2022-06-15] MEDS: FUROsemide 40 mg Tablet 80 MG PO (08:56)
[2022-06-15] MEDS: atorvastatin 40 mg Tablet 80 MG PO (08:56)
[2022-06-15] MEDS: lisinopril 20 mg Tablet PO (08:57)
[2022-06-15] MEDS: pantoprazole DR 40 mg Tablet PO (08:57)
--- NOTE | 2022-06-15 10:32 | PC.SOCIAL ---
IMM Updated Updated pt on IMM. No questions voiced. Provided pt a copy. Initialed, dated, & timed copy in chart.
[2022-06-15] MEDS: cloNIDine 0.1 mg Tablet PO (10:53)
[2022-06-15 11:04] LABS: Glucose Point of Care 282 mg/dL (70-110)
--- NOTE | 2022-06-15 14:18 | P.PN_ITS ---
Subjective Subjective: still waiting placement at [facility] feels more fatigued today RN reports no issues with PD - using all 2.5%, PD fluid drain clear, exit site no redness, tenderness or drainage Vitals/I&O/Wt Last Vital Signs Temp 97.8 F 06/15/22 12:00 Pulse 64 06/15/22 12:00 Resp 16 06/15/22 12:00 BP 176/99 06/15/22 12:00 Pulse Ox 98 06/15/22 12:00 O2 Del Method 06/15/22 12:00 O2 Flow Rate 4 06/15/22 08:00 06/14/22 06/15/22 06/15/22 22:59 06:59 14:59 Intake Total 360 / 720 480 / 480 Output Total 500 / 500 Balance 360 / 720 - Weight last 48 hrs Weight 108.862 kg Physical Exam Const: OTHER: lethargic Urinary Catheter Management: Barreto: Cath Placed During This Visit: yes, but has since been removed by the nurse Reason for Continuing Indwelling Catheter: Perioperative Use in Selected Surgeries Urinary Catheter Date of Insertion: 06/06/22 Urinary Catheter Time of Insertion: 21:30 Date Urinary Catheter Removed: 06/11/22 Time Urinary Catheter Discontinued: 16:00 Data : 06/14/22 02:40 06/14/22 02:40 Micro: Microbiology 06/10/22 14:07 Gram Stain - Final Peritoneal Fluid Body Fluid Culture - Final A&P Assessment and plan (1) End stage renal disease: seen via telemedicine with assistance of RN at bedside Plan 1. ESRD on peritoneal dialysis. CAPD 2.5% Q4h 2. Constipation, resolved. 3. Ankle fracture, s/p surgical repair. Awaiting rehab placement 4. Hypertension, blood pressure higher. clonidine was added 5. Diabetes 6. Hyponatremia. Fluid restrict, continue all 2.5% PD solutions 7. Anemia, Hb low. Iron replete. Continue epogen 20,000 un SQ twice weekly. Awaiting rehab placement. Labs orderd Attestations Medical Necessity Statement*: see above Time Spent in Patient Care: 16 - 35 minutes Coding Level of Care Code Acute Solar Water Heater Installer for [facility] Fwd Diagnoses End stage renal disease N18.6
--- NOTE | 2022-06-15 14:46 | PC.NURSE ---
Report called to Katharina at [facility].
== END 2022-06-15 15:23 | disposition skilled nursing facility (03) | DRG 492 ==
LOC: ER 18:10 → MEDSURG 19:40
PROVIDERS: Internal Medicine; Podiatrist Foot & Ankle Surgery; Admitting Provider Internal Medicine; Emergency Provider Family Medicine; PCP Family Medicine; Visit Provider Family Medicine
PROC: 0QHH06Z Insertion of Intramedullary Internal Fixation Device into Left Tibia, Open Approach (ICD-10-PCS; principal; 2022-06-09 08:00)
PROC: 0QHH06Z Insertion of Intramedullary Internal Fixation Device into Left Tibia, Open Approach (ICD-10-PCS; CPT 28740; 2022-06-09 08:00)
DX: S82.852A Displaced trimalleolar fracture of left lower leg, initial encounter for closed fracture (principal); J18.9 Pneumonia, unspecified organism; N18.6 End stage renal disease; I13.2 Hypertensive heart and chronic kidney disease with heart failure and with stage 5 chronic kidney disease, or end stage renal disease; I50.32 Chronic diastolic (congestive) heart failure; N17.9 Acute kidney failure, unspecified; E87.1 Hypo-osmolality and hyponatremia; W01.0XXA Fall on same level from slipping, tripping and stumbling without subsequent striking against object, initial encounter; E11.22 Type 2 diabetes mellitus with diabetic chronic kidney disease; Z99.2 Dependence on renal dialysis; F32.A Depression, unspecified; Z85.528 Personal history of other malignant neoplasm of kidney; H35.30 Unspecified macular degeneration; G47.33 Obstructive sleep apnea (adult) (pediatric); E78.5 Hyperlipidemia, unspecified; Z91.199 Patient's noncompliance with other medical treatment and regimen due to unspecified reason; Z99.81 Dependence on supplemental oxygen; K59.00 Constipation, unspecified; Z79.4 Long term (current) use of insulin; Z79.51 Long term (current) use of inhaled steroids; D63.1 Anemia in chronic kidney disease
CPT/HCPCS: 36415; 36416; 51702; 71045; 73590; 73600; 73610; 76000; 80048; 80053; 81001; 82042; 82728; 82962; 83036; 83540; 83550; 83735; 83880; 83986; 84100; 84145; 84157; 85025; 85610; 85730; 86403; 86705; 86706; 87040; 87070; 87075; 87086; 87106; 87205; 87340; 87426; 87449; 87641; 93005; 93306; 94664; 94760; 96361; 96372; 96374; 96375; 97161; 97166; 97530; 97535; 99285; C1713; J0696; J1100; J1170; J1644; J1815; J2020; J2270; J2370; J2405; J2543; J2704; J2795; J3010; J3490; J7030; Q0169; Q3014; Q4081

== ENCOUNTER → 2022-06-21 09:57 | Outpatient (BNVA) | payer OTHER, SELFPAY | PROVIDERS: PCP Family Medicine; Visit Provider Podiatrist Foot & Ankle Surgery | DX: Z98.890 Other specified postprocedural states (principal); E11.8 Type 2 diabetes mellitus with unspecified complications; Z79.4 Long term (current) use of insulin | CPT/HCPCS: 29405; 73610; 99024 ==

== ENCOUNTER → 2022-07-12 13:55 | Outpatient (BNVA) | payer OTHER, SELFPAY | PROVIDERS: PCP Family Medicine; Visit Provider Podiatrist Foot & Ankle Surgery | DX: Z98.890 Other specified postprocedural states (principal) | CPT/HCPCS: 73610; 99024 ==

== ENCOUNTER → 2022-07-26 14:31 | Outpatient (BNVA) | payer MEDICARE, OTHER, SELFPAY | PROVIDERS: PCP Family Medicine; Visit Provider Podiatrist Foot & Ankle Surgery | DX: Z98.890 Other specified postprocedural states (principal); S82.852D Displaced trimalleolar fracture of left lower leg, subsequent encounter for closed fracture with routine healing; X58.XXXD Exposure to other specified factors, subsequent encounter | CPT/HCPCS: 73610 ==

== ENCOUNTER 2022-07-26 15:44 | Outpatient (CLI) | payer MEDICARE, OTHER, SELFPAY | END 2022-07-26 15:45 | disposition home or self-care (01) | LOC: SPT 15:45 | PROVIDERS: PCP Family Medicine; Visit Provider Podiatrist Foot & Ankle Surgery | DX: Z47.89 Encounter for other orthopedic aftercare (principal) | CPT/HCPCS: 97760; 99024; L4361 ==

== ENCOUNTER → 2022-08-15 13:50 | Outpatient (BNVA) | payer MEDICARE, OTHER, SELFPAY | PROVIDERS: PCP Family Medicine; Visit Provider Podiatrist Foot & Ankle Surgery | DX: S82.852D Displaced trimalleolar fracture of left lower leg, subsequent encounter for closed fracture with routine healing (principal); X58.XXXD Exposure to other specified factors, subsequent encounter | CPT/HCPCS: 73610; 99024 ==

== ENCOUNTER → 2022-10-04 13:30 | Outpatient (BNVA) | payer MEDICARE, OTHER, SELFPAY | PROVIDERS: PCP Family Medicine; Visit Provider Podiatrist Foot & Ankle Surgery | DX: Z98.890 Other specified postprocedural states (principal); S82.852D Displaced trimalleolar fracture of left lower leg, subsequent encounter for closed fracture with routine healing; W18.2XXD Fall in (into) shower or empty bathtub, subsequent encounter | CPT/HCPCS: 73610; 99213 ==

== ENCOUNTER → 2022-12-06 12:52 | Outpatient (BNVA) | payer MEDICARE, OTHER, SELFPAY | PROVIDERS: PCP Family Medicine; Visit Provider Podiatrist Foot & Ankle Surgery | DX: Z98.890 Other specified postprocedural states (principal); S82.852D Displaced trimalleolar fracture of left lower leg, subsequent encounter for closed fracture with routine healing; W18.2XXD Fall in (into) shower or empty bathtub, subsequent encounter; Z79.84 Long term (current) use of oral hypoglycemic drugs; Z79.4 Long term (current) use of insulin; E11.9 Type 2 diabetes mellitus without complications | CPT/HCPCS: 99213 ==

== ENCOUNTER → 2023-05-02 13:46 | Outpatient (BNVA) | payer MEDICARE, OTHER, SELFPAY | PROVIDERS: PCP Family Medicine; Visit Provider Podiatrist Foot & Ankle Surgery | DX: E11.42 Type 2 diabetes mellitus with diabetic polyneuropathy (principal); S82.852D Displaced trimalleolar fracture of left lower leg, subsequent encounter for closed fracture with routine healing; N18.6 End stage renal disease; X58.XXXD Exposure to other specified factors, subsequent encounter; Z79.4 Long term (current) use of insulin; E11.22 Type 2 diabetes mellitus with diabetic chronic kidney disease | CPT/HCPCS: 99213 ==

== ENCOUNTER → 2023-08-02 13:57 | Outpatient (BNVA) | payer MEDICARE, OTHER, SELFPAY | PROVIDERS: PCP Family Medicine; Visit Provider Podiatrist Foot & Ankle Surgery | DX: N18.6 End stage renal disease (principal); E11.42 Type 2 diabetes mellitus with diabetic polyneuropathy; Z79.4 Long term (current) use of insulin | CPT/HCPCS: 99213 ==

== ENCOUNTER → 2023-10-15 17:19 | Outpatient (BNVA) | payer MEDICARE, OTHER, SELFPAY | PROVIDERS: PCP Family Medicine; Visit Provider Family Medicine | DX: I10 Essential (primary) hypertension; E78.5 Hyperlipidemia, unspecified; E11.65 Type 2 diabetes mellitus with hyperglycemia | CPT/HCPCS: 80053; 80061; 83036; 84443; 85007; 85025 ==

== ENCOUNTER → 2023-11-19 14:59 | Outpatient (BNVA) | payer MEDICARE, OTHER, SELFPAY | PROVIDERS: PCP Family Medicine; Referring Provider Family Medicine; Visit Provider Dermatology | DX: D48.5 Neoplasm of uncertain behavior of skin (principal); L98.8 Other specified disorders of the skin and subcutaneous tissue; L85.3 Xerosis cutis | CPT/HCPCS: 11102; 99203 ==

== ENCOUNTER → 2023-11-27 12:44 | Outpatient (BNVA) | payer MEDICARE, OTHER, SELFPAY | PROVIDERS: PCP Family Medicine; Visit Provider Podiatrist Foot & Ankle Surgery | DX: E11.42 Type 2 diabetes mellitus with diabetic polyneuropathy (principal); E11.8 Type 2 diabetes mellitus with unspecified complications; N18.6 End stage renal disease; L60.3 Nail dystrophy; Z79.4 Long term (current) use of insulin | CPT/HCPCS: 11721 ==

== ENCOUNTER → 2023-12-31 09:24 | Outpatient (BNVA) | payer MEDICARE, OTHER, SELFPAY | PROVIDERS: PCP Family Medicine; Visit Provider Dermatology | DX: L82.1 Other seborrheic keratosis (principal); L98.8 Other specified disorders of the skin and subcutaneous tissue; D04.61 Carcinoma in situ of skin of right upper limb, including shoulder; L81.4 Other melanin hyperpigmentation | CPT/HCPCS: 99214 ==

== ENCOUNTER → 2024-02-05 11:57 | Outpatient (BNVA) | payer MEDICARE, OTHER, SELFPAY | PROVIDERS: PCP Family Medicine; Visit Provider Family Medicine | DX: E11.43 Type 2 diabetes mellitus with diabetic autonomic (poly)neuropathy (principal); K31.84 Gastroparesis; Z09 Encounter for follow-up examination after completed treatment for conditions other than malignant neoplasm; E78.5 Hyperlipidemia, unspecified; E11.65 Type 2 diabetes mellitus with hyperglycemia; E87.6 Hypokalemia; E87.1 Hypo-osmolality and hyponatremia; I50.30 Unspecified diastolic (congestive) heart failure; E11.69 Type 2 diabetes mellitus with other specified complication; I10 Essential (primary) hypertension; Z79.899 Other long term (current) drug therapy | CPT/HCPCS: 80053; 80061; 83036; 84443; 85007; 85025 ==

== ENCOUNTER → 2024-03-04 13:00 | Outpatient (BNVA) | payer MEDICARE, OTHER, SELFPAY | PROVIDERS: PCP Family Medicine; Visit Provider Podiatrist Foot & Ankle Surgery | DX: N18.6 End stage renal disease; L60.3 Nail dystrophy; E11.42 Type 2 diabetes mellitus with diabetic polyneuropathy; E11.22 Type 2 diabetes mellitus with diabetic chronic kidney disease | CPT/HCPCS: 11721 ==

== ENCOUNTER → 2024-04-01 14:11 | Outpatient (BNVA) | payer MEDICARE, OTHER, SELFPAY | PROVIDERS: PCP Family Medicine; Visit Provider Nurse Practitioner Family | DX: D04.61 Carcinoma in situ of skin of right upper limb, including shoulder (principal); L29.8 Other pruritus; L85.3 Xerosis cutis; L82.1 Other seborrheic keratosis; L98.8 Other specified disorders of the skin and subcutaneous tissue; L81.4 Other melanin hyperpigmentation | CPT/HCPCS: 99214 ==

== ENCOUNTER → 2024-04-14 10:39 | Outpatient (BNVA) | payer MEDICARE, OTHER, SELFPAY | PROVIDERS: PCP Family Medicine; Visit Provider Dermatology | DX: D04.61 Carcinoma in situ of skin of right upper limb, including shoulder (principal); L29.8 Other pruritus; L85.3 Xerosis cutis; L82.1 Other seborrheic keratosis; L81.4 Other melanin hyperpigmentation | CPT/HCPCS: 17262; 99213 ==

== ENCOUNTER → 2024-06-03 12:48 | Outpatient (BNVA) | payer MEDICARE, OTHER, SELFPAY | PROVIDERS: PCP Family Medicine; Visit Provider Podiatrist Foot & Ankle Surgery | DX: N18.6 End stage renal disease (principal); L60.3 Nail dystrophy; E11.42 Type 2 diabetes mellitus with diabetic polyneuropathy; Z79.4 Long term (current) use of insulin | CPT/HCPCS: 11721; 99213 ==

== ENCOUNTER → 2024-06-10 15:53 | Outpatient (BNVA) | payer MEDICARE, OTHER, SELFPAY | PROVIDERS: PCP Nurse Practitioner Family; Visit Provider Nurse Practitioner Family | DX: E11.42 Type 2 diabetes mellitus with diabetic polyneuropathy (principal); E11.69 Type 2 diabetes mellitus with other specified complication; I50.30 Unspecified diastolic (congestive) heart failure | CPT/HCPCS: 80053; 80061; 83036; 84443; 85007; 85025 ==